=== PATIENT | female | born 1960 | race American Indian/Alaskan Native ===

== ENCOUNTER 2017-12-31 12:40 | Emergency (ER) | payer MEDICARE, OTHER ==
[2017-12-31 13:41] LABS: Basophils # (Auto) 0.1 K/mm3 (0.0-0.1); Basophils % (Auto) 0.8 % (0.0-1.8); Eosinophils # (Auto) 0.3 K/mm3 (0.0-0.4); Eosinophils % (Auto) 4.1 % (0.0-4.3); Hematocrit 37.5 % (30.3-42.9); Hemoglobin 12.7 gm/dl (10.1-14.3); Lymphocytes # (Auto) 1.9 K/mm3 (1.2-5.4); Lymphocytes % (Auto) 23.3 % (13.4-35.0); Mean Corpuscular HGB Conc 34 % (30-34); Mean Corpuscular Hemoglobin 27 pg (28-32); Mean Corpuscular Volume 81 fl (79-97); Monocytes # (Auto) 0.7 K/mm3 (0.0-0.8); Monocytes % (Auto) 8.5 % (0.0-7.3); Platelet Count 305 K/mm3 (140-440); Red Blood Count 4.65 M/mm3 (3.65-5.03); Red Cell Distribution Width 14.2 % (13.2-15.2)
[2017-12-31 13:57] LABS: Calcium 8.8 mg/dL (8.4-10.2)
[2017-12-31] MEDS ORDERED: APRESOLINE IV ONE (14:21)
[2017-12-31] MEDS ORDERED: HumuLIN R IV ONE (16:40)
--- NOTE | 2017-12-31 17:21 | Emergency Department Report ---
HPI - General Chief Complaint: High BP Time Seen by Provider: 12/31/17 14:21 - HPI HPI: The patient is a 57-year-old female with a history of hypertension, diabetes, and chronic kidney disease, who presents for evaluation of elevated blood pressure and mild lightheadedness for the past one day, exacerbated with position changes, improved with lying down at rest. She shares that she was prescribed refills of her antihypertensive medications by her PCP within the past day, but that she was out of one them. The patient denies fever, neck pain , parasthesias, dyspnea, cough, hemoptysis, palpitations, dizziness, syncope, unilateral leg swelling, calf muscle pain. Patient also denies cocaine or other stimulant use, history of DVT or PE, recent immobilization, or history of cancer. ED Past Medical Hx - Past Medical History Hx Hypertension: Yes Hx CVA: Yes Hx Heart Attack/AMI: Yes Hx Congestive Heart Failure: Yes Hx Diabetes: Yes Hx Deep Vein Thrombosis: No Hx Pulmonary Embolism: No Hx Liver Disease: No Hx Seizures: No Hx Asthma: No Hx COPD: No Hx Tuberculosis: No Hx Dementia: No Hx HIV: No - Surgical History Hx Coronary Stent: No Hx Pacemaker: No Hx Internal Defibrillator: No Additional Surgical History: left shoulder sx - Social History Smoking Status: Never Smoker Substance Use Type: None - Medications Home Medications: Home Medications Medication Instructions Recorded Confirmed Last Taken Type Aspirin [Aspirin BABY CHEW TAB] 81 mg PO QDAY 03/12/16 03/12/16 Unknown History AtorvaSTATin [Lipitor] 40 mg PO QAM 03/12/16 03/12/16 Unknown History Insulin NPH Hum/Reg Insulin Hm 15 unit SQ BID 03/12/16 03/12/16 Unknown History [HumuLIN 70-30 Vial] hydrALAZINE [Apresoline TAB] 100 mg PO TID 03/12/16 03/12/16 Unknown History Erythromycin [Erythromycin Ophth 1 applic OD ONCE 7 Days tube 03/17/16 Unknown Rx Oint] NIFEdipine XL [Procardia Xl] 60 mg PO Q12HR #60 tablet 03/17/16 Unknown Rx ED Review of Systems ROS: Stated complaint: BLOOD PRESSURE Other details as noted in HPI Constitutional: Reports lightheadedness denies: fever ENT: denies: throat or neck pain Respiratory: denies: cough, shortness of breath Cardiovascular: denies: chest pain Endocrine: denies unexplained weight loss or gain Gastrointestinal: denies: abdominal pain, nausea Genitourinary: denies: dysuria Musculoskeletal: denies: leg swelling Skin: denies: rash Neurological: denies: headache Hematological/Lymphatic: denies: easy bleeding or easy bruising Psych: denies sadness or hopelessness Physical Exam - Physical Exam Vital Signs: Vital Signs 12/31/17 12/31/17 12/31/17 12:44 12:47 14:59 Temperature 98.3 F Pulse Rate 64 46 L Respiratory 16 14 Rate Blood Pressure 208/82 Blood Pressure 200/56 [Left] O2 Sat by Pulse 97 Oximetry 12/31/17 12/31/17 12/31/17 15:00 15:16 15:30 Temperature Pulse Rate 46 L 47 L 47 L Respiratory 12 10 L 16 Rate Blood Pressure Blood Pressure [Left] O2 Sat by Pulse 94 95 98 Oximetry 12/31/17 12/31/17 12/31/17 15:46 16:00 16:16 Temperature Pulse Rate 49 L 48 L 47 L Respiratory 19 18 19 Rate Blood Pressure Blood Pressure [Left] O2 Sat by Pulse 94 96 94 Oximetry 12/31/17 12/31/17 12/31/17 16:30 16:46 16:55 Temperature Pulse Rate 47 L 47 L Respiratory 20 16 Rate Blood Pressure 133/70 130/70 Blood Pressure [Left] O2 Sat by Pulse 97 Oximetry Physical Exam: General: well-nourished, well-developed, no acute distress Head: Normocephalic, atraumatic Eyes: normal sclera EOMI, PERRLA, no vertical, horizontal, or watery nystagmus, ENT: Mucous membranes are pale and dry Neck: No neck stiffness, no cervical adenopathy Respiratory: Breath sounds equal bilaterally, no wheezing, rales, or rhonchi Cardio: S1 and S2 present, no murmurs, rubs, gallops, capillary refill is delayed Abdomen: Normoactive bowel sounds, soft abdomen, no tenderness Chest WALL/Back: No tenderness to palpation of the chest wall, no CVA tenderness with percussion Musc: No pitting edema Skin: No rash Neuro: Alert oriented 3, no facial drooping, normal speech, no obvious gross sensation or motor deficits on exam Psych: Normal affect ED Course Vital Signs 12/31/17 12/31/17 12/31/17 12:44 12:47 14:59 Temperature 98.3 F Pulse Rate 64 46 L Respiratory 16 14 Rate Blood Pressure 208/82 Blood Pressure 200/56 [Left] O2 Sat by Pulse 97 Oximetry 12/31/17 12/31/17 12/31/17 15:00 15:16 15:30 Temperature Pulse Rate 46 L 47 L 47 L Respiratory 12 10 L 16 Rate Blood Pressure Blood Pressure [Left] O2 Sat by Pulse 94 95 98 Oximetry 12/31/17 12/31/17 12/31/17 15:46 16:00 16:16 Temperature Pulse Rate 49 L 48 L 47 L Respiratory 19 18 19 Rate Blood Pressure Blood Pressure [Left] O2 Sat by Pulse 94 96 94 Oximetry 12/31/17 12/31/17 12/31/17 16:30 16:46 16:55 Temperature Pulse Rate 47 L 47 L Respiratory 20 16 Rate Blood Pressure 133/70 130/70 Blood Pressure [Left] O2 Sat by Pulse 97 Oximetry ED Medical Decision Making - Lab Data Result diagrams: 12/31/17 13:22 12/31/17 13:22 - Medical Decision Making The patient was seen and examined by myself. The patient is placed on a astrophysics teacher and continuous pulse ox. On initial evaluation, the patient was found to be in no distress. Evaluation orders were placed. EKG negative for arrhythmia or changes concerning for acute cardiac disease process. The patient was given IV hydralazine for her elevated blood pressure. Lab results revealed elevated BUN, elevated creatinine of 2.7, elevated glucose of 300, normal anion gap and bicarbonate, not consistent with DKA. The patient was given subcutaneous insulin for treatment of hyperglycemia. Lab results were not concerning. The patient was reevaluated and found to have resolution of hypertension. On reexamination the patient states that she has been at her normal baseline and is asymptomatic. The patient was reevaluated and reported that their symptoms were markedly improved. The patient is stable for discharge with outpatient follow-up. The patient is given follow-up and return instructions. The patient expressed understanding and agreed with the plan. The patient is discharged in stable condition. Critical care attestation.: If time is entered above; I have spent that time in minutes in the direct care of this critically ill patient, excluding procedure time. ED Disposition Clinical Impression: Hypertensive urgency, Dehydration, Acute hyperglycemia CKD (chronic kidney disease) Qualifiers: Chronic kidney disease stage: unspecified stage Qualified Code(s): N18.9 - Chronic kidney disease, unspecified Disposition: DC-01 TO HOME OR SELFCARE Is pt being admited?: No Does the pt Need Aspirin: No Condition: Stable Instructions: Chronic Hypertension (ED), Chronic Kidney Disease (ED), Diabetic Hyperglycemia (ED) Referrals: [facility] [Provider Group] - 3-5 Days Time of Disposition: 17:16
[2017-12-31 17:44] VITALS: BP 133/70
== END 2017-12-31 17:50 | disposition home or self-care (01) ==
LOC: ED 12:40
DX: I16.0 Hypertensive urgency (principal); E11.65 Type 2 diabetes mellitus with hyperglycemia; E86.0 Dehydration; I13.0 Hypertensive heart and chronic kidney disease with heart failure and stage 1 through stage 4 chronic kidney disease, or unspecified chronic kidney disease; E11.22 Type 2 diabetes mellitus with diabetic chronic kidney disease; N18.9 Chronic kidney disease, unspecified; I50.9 Heart failure, unspecified; I25.2 Old myocardial infarction; Z79.4 Long term (current) use of insulin; Z86.73 Personal history of transient ischemic attack (TIA), and cerebral infarction without residual deficits; Z79.82 Long term (current) use of aspirin
CPT/HCPCS: 36415; 80048; 82962; 85025; 93005; 93010; 96374; 99284; J0360; J1815

== ENCOUNTER 2018-03-17 13:48 | Inpatient (IN) | payer MEDICARE ==
--- NOTE | 2018-03-17 14:24 | Emergency Department Report ---
HPI - General Time Seen by Provider: 03/17/18 14:14 - HPI HPI: 57-year-old female presents to the emergency department from home with complaint of some lightheadedness and/or dizziness, headache and some right eye pain has been going on since earlier this morning. 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 She denies any vertigo like symptoms, slurred speech, sensory deficits or any new motor deficits. Patient does ambulate despite her right-sided weakness. She has not taken anything for her symptoms prior to presentation. She goes to [facility] for primary care needs. No recent travel or sick contacts at home. ED Past Medical Hx - Past Medical History Hx Hypertension: Yes Hx CVA: Yes Hx Heart Attack/AMI: Yes Hx Congestive Heart Failure: Yes Hx Diabetes: Yes Hx Deep Vein Thrombosis: No Hx Pulmonary Embolism: No Hx Liver Disease: No Hx Seizures: No Hx Asthma: No Hx COPD: No Hx Tuberculosis: No Hx Dementia: No Hx HIV: No - Surgical History Hx Coronary Stent: No Hx Pacemaker: No Hx Internal Defibrillator: No Additional Surgical History: left shoulder sx - Social History Smoking Status: Never Smoker Substance Use Type: None - Medications Home Medications: Home Medications Medication Instructions Recorded Confirmed Last Taken Type Atenolol [Tenormin] 50 mg PO DAILY 03/17/18 03/17/18 Unknown History Atorvastatin [Lipitor Tab] 80 mg PO QAM 03/17/18 03/17/18 Unknown History Insulin Detemir [Levemir Flextouch] 15 unit SQ BID 03/17/18 03/17/18 Unknown History amLODIPine [Norvasc] 10 mg PO DAILY 03/17/18 03/17/18 Unknown History glipiZIDE [Glipizide] 10 mg PO BID 03/17/18 03/17/18 Unknown History ED Review of Systems ROS: Stated complaint: WEAKNESS Other details as noted in HPI Comment: All other systems reviewed and negative Constitutional: denies: chills, fever Eyes: eye pain. denies: vision change ENT: denies: ear pain, throat pain Respiratory: denies: cough, shortness of breath, wheezing Cardiovascular: denies: chest pain, palpitations Gastrointestinal: denies: abdominal pain, nausea, diarrhea Genitourinary: denies: urgency, dysuria, discharge Musculoskeletal: denies: back pain, joint swelling, arthralgia Skin: denies: rash, lesions Neurological: headache, other (dizziness/lightheaded) Physical Exam - Physical Exam Physical Exam: GENERAL: The patient is well-developed well-nourished. HENT: Normocephalic. Atraumatic. Patient has moist mucous membranes. EYES: Extraocular motions are intact. Left pupil is reactive to light. 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 NECK: Supple. Trachea is midline. CHEST/LUNGS: Clear to auscultation. There is no respiratory distress noted. HEART/CARDIOVASCULAR: Regular. There is no tachycardia. There is no murmur. ABDOMEN: Abdomen is soft, nontender. Patient has normal bowel sounds. There is no abdominal distention. SKIN: Skin is warm and dry. NEURO: The patient is awake, alert, and cooperative. The patient has no focal neurologic deficits. The patient has normal speech. Cranial nerves II through XII grossly intact except for pupillary response in the right eye. No pronator drift. No dysmetria. MUSCULOSKELETAL: There is no tenderness or deformity. There is no evidence of acute injury. ED Medical Decision Making - Lab Data Result diagrams: 03/17/18 14:29 03/17/18 14:29 - EKG Data -: EKG Interpreted by [facility] EKG shows normal: sinus rhythm, axis (left axis deviation), intervals, QRS complexes (LVH), ST-T waves (flattening of the T waves or inversion to the lateral leads) Rate: bradycardia (47 bpm) - EKG Data When compared to previous EKG there are: no significant change Interpretation: unchanged when compared t (12/31/17) - Radiology Data Radiology results: report reviewed, image reviewed interpreted by me: Chest x-ray does not show any acute process. There are no pleural effusions, obvious pneumonia and there is no pneumothorax. CT HEAD WITHOUT CONTRAST: HISTORY: Dizziness, headache. TECHNIQUE: Sequential 2.5mm CT images. COMPARISON: 03/16/16. FINDINGS: Cerebral Parenchyma: A chronic 1.5 cm infarct is identified in the right anterior basal ganglia/johnson radiata. An approximate 2 x 3 cm chronic infarct is identified in the left parietal lobe. An approximate 1.7 cm cortical infarct is identified in the posterior right frontal lobe. Chronic 1 cm infarct is identified in the left cerebellar hemisphere. No large area of acute ischemia is appreciated on today's exam. Cerebellum: Within normal limits. Brainstem: Within normal limits. Ventricles: Normal. Sella: Normal. Extra-axial spaces: Normal. Basal Cisterns: Normal. Intracranial Hemorrhage: None. Midline Shift: None. Calvarium: Normal. Sinuses: Normal. Mastoid Air Cells: Normal. Visualized Orbits: Normal. IMPRESSION: Multiple chronic infarcts as outlined above. No acute process is appreciated. Transcribed By: TTR Dictated By: ANIYAH VAZQUEZ JR, MD Electronically Authenticated By: ANIYAH VAZQUEZ JR, MD Signed Date/Time: 03/17/18 1527 - Medical Decision Making Patient presents with a complaint of some dizziness and lightheadedness. She has a history of previous CVA. She is a 0 on the NIH stroke scale. Labs have been mostly unremarkable. Patient does have some elevated blood pressure. The patient appears to have some sustained bradycardia. Patient was reevaluated multiple times for multiple hours and has appeared to remain stable but has not improved enough for discharge home. When we got the patient up to ambulate, she appeared a little unsteady and says that she was feeling dizzy. For this reason the patient will be admitted to the hospital for further evaluation and possibly an MRI. The patient will be presented to the admitting hospice, Dr. Meneses. Critical care attestation.: If time is entered above; I have spent that time in minutes in the direct care of this critically ill patient, excluding procedure time. ED Disposition Clinical Impression: Unstable gait, Dizziness, Hyperglycemia, History of CVA (cerebrovascular accident) Disposition: OP ADMIT IP TO THIS HOSP Is pt being admited?: Yes Condition: Fair Referrals: PRIMARY CARE, [Primary Care Provider] - 3-5 Days Time of Disposition: 21:20 - Assessment Assessment Interval: Baseline - Level of Consciousness 1a. Level of Consciousness: alert/keenly responsive - LOC Questions 1b. LOC Questions: answers both correctly - LOC Command 1c. LOC Commands: performs tasks correctly - Best Gaze 2. Best Gaze: normal - Visual 3. Visual: no visual loss - Facial Palsy 4. Facial Palsy: normal symmetrical movement - Motor Arm 5b. Motor Arm Right: no drift 5a. Motor Arm Left: no drift - Motor Leg 6a. Motor Leg Left: no drift 6b. Motor Leg Right: no drift - Limb Ataxia 7. Limb Ataxia: absent - Sensory 8. Sensory: normal - Best Language 9. Best Language: no aphasia - Dysarthria 10. Dysarthria: normal - Extinction and Inattention 11. Extinction/Inattention: no abnormality - Scoring Total Score: 0 Stroke Severity: No Stroke Symptoms
[2018-03-17 14:49] LABS: Basophils # (Auto) 0.1 K/mm3 (0.0-0.1); Basophils % (Auto) 0.6 % (0.0-1.8); Eosinophils # (Auto) 0.1 K/mm3 (0.0-0.4); Eosinophils % (Auto) 0.6 % (0.0-4.3); Hematocrit 37.2 % (30.3-42.9); Hemoglobin 12.2 gm/dl (10.1-14.3); Lymphocytes # (Auto) 0.6 K/mm3 (1.2-5.4); Lymphocytes % (Auto) 6.4 % (13.4-35.0); Mean Corpuscular HGB Conc 33 % (30-34); Mean Corpuscular Hemoglobin 27 pg (28-32); Mean Corpuscular Volume 83 fl (79-97); Monocytes # (Auto) 0.3 K/mm3 (0.0-0.8); Monocytes % (Auto) 3.3 % (0.0-7.3); Platelet Count 309 K/mm3 (140-440); Red Blood Count 4.49 M/mm3 (3.65-5.03); Red Cell Distribution Width 14.3 % (13.2-15.2)
[2018-03-17 15:10] LABS: Albumin 3.6 g/dL (3.9-5); Calcium 9.2 mg/dL (8.4-10.2)
--- NOTE | 2018-03-17 15:26 | XRay Report ---
AP CHEST: HISTORY: chest pain Mild cardiomegaly is suspected. Normal pulmonary vascularity. The lungs are clear. The bony thorax is intact. IMPRESSION: Mild cardiomegaly. Lungs clear.
--- NOTE | 2018-03-17 15:29 | Cat Scan Report ---
CT HEAD WITHOUT CONTRAST: HISTORY: Dizziness, headache. TECHNIQUE: Sequential 2.5mm CT images. COMPARISON: 03/16/16. FINDINGS: Cerebral Parenchyma: A chronic 1.5 cm infarct is identified in the right anterior basal ganglia/johnson radiata. An approximate 2 x 3 cm chronic infarct is identified in the left parietal lobe. An approximate 1.7 cm cortical infarct is identified in the posterior right frontal lobe. Chronic 1 cm infarct is identified in the left cerebellar hemisphere. No large area of acute ischemia is appreciated on today's exam. Cerebellum: Within normal limits. Brainstem: Within normal limits. Ventricles: Normal. Sella: Normal. Extra-axial spaces: Normal. Basal Cisterns: Normal. Intracranial Hemorrhage: None. Midline Shift: None. Calvarium: Normal. Sinuses: Normal. Mastoid Air Cells: Normal. Visualized Orbits: Normal. IMPRESSION: Multiple chronic infarcts as outlined above. No acute process is appreciated.
[2018-03-17] MEDS ORDERED: APRESOLINE IV ONE (16:04)
[2018-03-17] MEDS ORDERED: D50W (25GM) Syringe IV PRN (22:22)
[2018-03-17] MEDS ORDERED: APRESOLINE ONE (23:32)
[2018-03-17] MEDS: APRESOLINE IV PRN (23:33)
[2018-03-18 01:13] LABS: Creatine Kinase MB 9.5 ng/mL (0.0-4.0)
[2018-03-18] MEDS: APRESOLINE IV PRN (05:23)
[2018-03-18 05:31] LABS: Creatine Kinase MB 7.8 ng/mL (0.0-4.0)
[2018-03-18 05:34] LABS: Calcium 9.3 mg/dL (8.4-10.2)
[2018-03-18 08:07] LABS: Chol/HDL Ratio 4.1 %
[2018-03-18] MEDS ORDERED: APRESOLINE IV PRN (08:30)
[2018-03-18] MEDS: HumuLIN R SUB-Q SCH ×4 (08:37→22:43)
[2018-03-18] MEDS: APRESOLINE PO SCH ×3 (09:11→22:23)
--- NOTE | 2018-03-18 09:58 | Consultation ---
History of Present Illness - Reason for Consult Consult date: 03/18/18 acute renal failure, chronic renal failure Requesting physician: SUZANNE MATHEW - History of Present Illness 57-year-old female presents to the emergency department from home with complaint of some lightheadedness and/or dizziness, headache and some right eye pain has been going on since earlier this morning. 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 She denies any vertigo like symptoms, slurred speech, sensory deficits or any new motor deficits. Patient does ambulate despite her right-sided weakness. She has not taken anything for her symptoms prior to presentation. She goes to [place] for primary care needs. No recent travel or sick contacts at home. cr is 2.8 currently, was 1.6 in 2016 - Past Medical History Hx Hypertension: Yes Hx CVA: Yes Hx Heart Attack/AMI: Yes Hx Congestive Heart Failure: Yes Hx Diabetes: Yes Hx Deep Vein Thrombosis: No Hx Pulmonary Embolism: No Hx Liver Disease: No Hx Seizures: No Hx Asthma: No Hx COPD: No Hx Tuberculosis: No Hx Dementia: No Hx HIV: No - Surgical History Hx Coronary Stent: No Hx Pacemaker: No Hx Internal Defibrillator: No Additional Surgical History: left shoulder sx - Social History Smoking Status: Never Smoker Substance Use Type: None ROS: Stated complaint: WEAKNESS Other details as noted in HPI Comment: All other systems reviewed and negative Constitutional: denies: chills, fever Eyes: eye pain. denies: vision change ENT: denies: ear pain, throat pain Respiratory: denies: cough, shortness of breath, wheezing Cardiovascular: denies: chest pain, palpitations Gastrointestinal: denies: abdominal pain, nausea, diarrhea Genitourinary: denies: urgency, dysuria, discharge Musculoskeletal: denies: back pain, joint swelling, arthralgia Skin: denies: rash, lesions Neurological: headache, other (dizziness/lightheaded) Medications and Allergies Allergies Allergy/AdvReac Type Severity Reaction Status Date / Time No Known Allergies Allergy Verified 10/02/13 23:34 Home Medications Medication Instructions Recorded Confirmed Last Taken Type Atenolol [Tenormin] 50 mg PO DAILY 03/17/18 03/17/18 Unknown History Atorvastatin [Lipitor Tab] 80 mg PO QAM 03/17/18 03/17/18 Unknown History Insulin Detemir [Levemir Flextouch] 15 unit SQ BID 03/17/18 03/17/18 Unknown History amLODIPine [Norvasc] 10 mg PO DAILY 03/17/18 03/17/18 Unknown History glipiZIDE [Glipizide] 10 mg PO BID 03/17/18 03/17/18 Unknown History Active Meds: Active Medications Amlodipine Besylate (Norvasc) 10 mg PO DAILY [facility] Last Admin: 03/18/18 09:08 Dose: 10 mg Atorvastatin Calcium (Lipitor) 80 mg PO QAM [facility] Last Admin: 03/18/18 09:13 Dose: 80 mg Dextrose (D50w (25gm) Syringe) 50 ml IV PRN PRN PRN Reason: Hypoglycemia Heparin Sodium (Porcine) (Heparin) 5,000 unit SUB-Q Q12HR [facility] Last Admin: 03/18/18 09:12 Dose: 5,000 unit Hydralazine HCl (Apresoline) 10 mg IV Q30MIN PRN PRN Reason: Hypertension Hydralazine HCl (Apresoline) 100 mg PO TID [facility] Last Admin: 03/18/18 09:11 Dose: 100 mg Insulin Human Regular (Humulin R) 0 units SUB-Q AC [facility]; Protocol Last Admin: 03/18/18 08:37 Dose: Not Given Insulin Human Regular (Humulin R) 0 units SUB-Q QHS [facility]; Protocol Exam - Vital Signs Vital signs: Vital Signs Pulse Ox 82 L 03/17/18 14:14 - Physical Exam Narrative exam: GENERAL: The patient is well-developed well-nourished. HENT: Normocephalic. Atraumatic. Patient has moist mucous membranes. EYES: Extraocular motions are intact. Left pupil is reactive to light. 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 NECK: Supple. Trachea is midline. CHEST/LUNGS: Clear to auscultation. There is no respiratory distress noted. HEART/CARDIOVASCULAR: Regular. There is no tachycardia. There is no murmur. ABDOMEN: Abdomen is soft, nontender. Patient has normal bowel sounds. There is no abdominal distention. SKIN: Skin is warm and dry. NEURO: The patient is awake, alert, and cooperative. The patient has no focal neurologic deficits. The patient has normal speech. Cranial nerves II through XII grossly intact except for pupillary response in the right eye. No pronator drift. No dysmetria. MUSCULOSKELETAL: There is no tenderness or deformity. There is no evidence of acute injury. Results - Lab Results 03/17/18 14:29 03/18/18 04:49 Most recent lab results Calcium 9.3 mg/dL (8.4-10.2) 03/18/18 04:49 Assessment and Plan Impression: * KIZZY on ckd * HTN * dizziness * h/o CVA * DM type 2 * h/p chf Plan: * follow up renal us and ua * likely adv CKD due to HTN/DM * daily lytes * strict i/os and avoid nephrotoxins * bp and DM control needed * no indication for HOME DELIVERY DRIVER at this time
[2018-03-18] MEDS ORDERED: NORVASC PO SCH (10:00)
[2018-03-18] MEDS ORDERED: HEPARIN SUB-Q SCH (10:00)
[2018-03-18] MEDS ORDERED: TENORMIN PO SCH (10:00)
--- NOTE | 2018-03-18 10:04 | Consultation ---
History of Present Illness Consult date: 03/18/18 Consult reason: bradycardia History of present illness: This is a 57 year old woman who presents to this hospital with complaints of light headedness. Patient reports feeling light headed upon standing, resolves at rest. There are no reports of chest pain, shortness of breath or palpitations. There was no syncope. Her EKG shows marked sinus bradycardia with LVH, rate 47. Cardiac enzymes shows rhabdomyolysis with a creatine kinase 680 with a normal relative index. There is also elevated troponin of 0.98, likely in the setting of renal failure with a creatinine of 2.8. Patient has a history of hypertension which is managed with atenolol and amlodipine. She also has a history of nonischemic cardiomyopathy. In 2014, she had a cardiac cath that revealed no significant coronary artery disease but mild left ventricular dysfunction, ejection fraction 40%. A follow up echocardiogram in 2015 showed an improved left ventricular ejection fraction 55- 60%. Medications and Allergies Allergies Allergy/AdvReac Type Severity Reaction Status Date / Time No Known Allergies Allergy Verified 10/02/13 23:34 Home Medications Medication Instructions Recorded Confirmed Last Taken Type Atenolol [Tenormin] 50 mg PO DAILY 03/17/18 03/17/18 Unknown History Atorvastatin [Lipitor Tab] 80 mg PO QAM 03/17/18 03/17/18 Unknown History Insulin Detemir [Levemir Flextouch] 15 unit SQ BID 03/17/18 03/17/18 Unknown History amLODIPine [Norvasc] 10 mg PO DAILY 03/17/18 03/17/18 Unknown History glipiZIDE [Glipizide] 10 mg PO BID 03/17/18 03/17/18 Unknown History Active Meds: Active Medications Amlodipine Besylate (Norvasc) 10 mg PO DAILY [facility] Last Admin: 03/18/18 09:08 Dose: 10 mg Atorvastatin Calcium (Lipitor) 80 mg PO QAM [facility] Last Admin: 03/18/18 09:13 Dose: 80 mg Dextrose (D50w (25gm) Syringe) 50 ml IV PRN PRN PRN Reason: Hypoglycemia Heparin Sodium (Porcine) (Heparin) 5,000 unit SUB-Q Q12HR [facility] Last Admin: 03/18/18 09:12 Dose: 5,000 unit Hydralazine HCl (Apresoline) 10 mg IV Q30MIN PRN PRN Reason: Hypertension Hydralazine HCl (Apresoline) 100 mg PO TID [facility] Last Admin: 03/18/18 09:11 Dose: 100 mg Insulin Human Regular (Humulin R) 0 units SUB-Q AC [facility]; Protocol Last Admin: 03/18/18 08:37 Dose: Not Given Insulin Human Regular (Humulin R) 0 units SUB-Q QHS [facility]; Protocol Physical Examination Vital Signs Pulse Ox 82 L 03/17/18 14:14 Results 03/17/18 14:29 03/18/18 04:49 Cardiac Enzymes 03/17/18 03/18/18 03/18/18 Range/Units 14:29 00:36 04:49 AST 21 (5-40) units/L CK-MB (CK-2) 9.5 H 7.8 H (0.0-4.0) ng/mL Lipids 03/18/18 Range/Units 04:49 Triglycerides 159 H (2-149) mg/dL Cholesterol 246 H (50-199) mg/dL HDL Cholesterol 60 H (40-59) mg/dL Cholesterol/HDL Ratio 4.10 % CBC 03/17/18 Range/Units 14:29 WBC 9.1 (4.5-11.0) K/mm3 RBC 4.49 (3.65-5.03) M/mm3 Hgb 12.2 (10.1-14.3) gm/dl Hct 37.2 (30.3-42.9) % Plt Count 309 (140-440) K/mm3 Lymph # 0.6 L (1.2-5.4) K/mm3 [place] # 0.3 (0.0-0.8) K/mm3 Eos # 0.1 (0.0-0.4) K/mm3 Baso # 0.1 (0.0-0.1) K/mm3 Comprehensive Metabolic Panel 03/17/18 03/18/18 Range/Units 14:29 04:49 Sodium 137 142 (137-145) mmol/L Potassium 4.7 4.3 (3.6-5.0) mmol/L Chloride 101.4 105.5 (98-107) mmol/L Carbon Dioxide 24 24 (22-30) mmol/L BUN 43 H 40 H (7-17) mg/dL Creatinine 2.8 H 2.8 H (0.7-1.2) mg/dL Glucose 258 H 123 H (65-100) mg/dL Calcium 9.2 9.3 (8.4-10.2) mg/dL AST 21 (5-40) units/L ALT 24 (7-56) units/L Alkaline Phosphatase 77 (35-129) units/L Total Protein 6.5 (6.3-8.2) g/dL Albumin 3.6 L (3.9-5) g/dL Assessment and Plan Light headed Acute renal failure Sinus bradycardia atenolol discontinued Hypertension Diabetes Elevated troponin, nonspecific likely in the setting of renal failure [facility] 2015: no significant CAD, EF 40%. normal LVEF by echo 2015.
[2018-03-18] MEDS: PROCARDIA XL PO SCH (14:05)
[2018-03-18] MEDS: ASPIRIN PO SCH (14:05)
--- NOTE | 2018-03-18 14:58 | Ultrasound Report ---
Renal ultrasound: Renal failure. The right renal length is 10.3 cm and the left renal length is 9.7 cm. The echogenicity of both kidneys is minimally increased. No parenchymal thinning identified. Small collections of fluid are identified centrally in both collecting systems but not significant distention of the system. These findings are generally unchanged from her prior exam in February 2016. Imaging of the urinary bladder is unremarkable. Of incidental note are several gallstones with no evidence of gallbladder inflammation. Impressions: 1. The findings are consistent with mild chronic renal failure. 2. Stable minimal dilatation of central collecting systems. 3. Cholelithiasis.
--- NOTE | 2018-03-18 15:12 | Progress Note ---
Assessment and Plan MARYANNE on ckd - monitor renal function and follow BMP - nephrology consulted HTN, uncontrolled - d/c atenolol, start on norvasc and hydralazine dizziness, likely from Maryanne and uncontrolled BP - CT head negative, adjust meds to better control BP h/o CVA with rightsided weakness - cont aspirin and statin DM type 2 - consistent carb diet h/o CHF - cont home meds, cardiology following Sinus bradycardia, med induced - d/randall atenolol - Subjective Date of service: 03/18/18 Interval history: Pt seen and examined No acute event o/n denies any SOB or chest pain Objective - Constitutional Vitals: Vital Signs - 12hr 03/18/18 03/18/18 03/18/18 04:44 08:50 09:08 Temperature 98.7 F Pulse Rate 58 L 62 Respiratory 24 Rate Blood Pressure 204/61 175/50 Blood Pressure 175/50 [Right] O2 Sat by Pulse 96 Oximetry 03/18/18 09:15 Temperature Pulse Rate 62 Respiratory Rate Blood Pressure 175/50 Blood Pressure [Right] O2 Sat by Pulse Oximetry General appearance: Present: no acute distress, obese, other (elderly female) - EENT Eyes: no scleral icterus ENT: hearing intact, clear oral mucosa Ears: bilateral: normal - Neck Neck: supple, normal ROM - Respiratory Respiratory effort: normal Respiratory: bilateral: CTA - Breasts Breasts: normal - Cardiovascular Rhythm: regular Heart Sounds: Present: S1 & S2. Absent: gallop, rub Extremities: pulses intact, No edema, normal color, Full ROM - Gastrointestinal General gastrointestinal: Present: soft, non-tender, non-distended, normal bowel sounds - Genitourinary Female genitourinary: normal - Integumentary Integumentary: clear, warm, dry - Musculoskeletal Musculoskeletal: 1, strength equal bilaterally - Neurologic Neurologic: moves all extremities - Psychiatric Psychiatric: memory intact, appropriate mood/affect, intact judgment & insight - Labs CBC & Chem 7: 03/18/18 22:21 03/19/18 05:20 Labs: Abnormal lab results 03/18/18 03/18/18 03/18/18 Range/Units 00:36 04:49 13:43 BUN 40 H (7-17) mg/dL Creatinine 2.8 H (0.7-1.2) mg/dL Glucose 123 H (65-100) mg/dL POC Glucose 162 H (70-105) Total Creatine Kinase 680 H 620 H (30-135) units/L CK-MB (CK-2) 9.5 H 7.8 H (0.0-4.0) ng/mL Troponin T 0.098 H 0.103 H* (0.00-0.029) ng/mL Triglycerides 159 H (2-149) mg/dL Cholesterol 246 H (50-199) mg/dL LDL Cholesterol Direct 167 H (50-130) mg/dL HDL Cholesterol 60 H (40-59) mg/dL - Imaging and cardiology Chest x-ray: report reviewed CT Scan - head: report reviewed
[2018-03-18] MEDS ORDERED: HEPARIN 10,000 UNITS/10 ML IV ONE (21:33)
[2018-03-18] MEDS ORDERED: HEPARIN/ 0.45% NACL-25,000 UNIT/500 ML 25,000 UNIT/500 ML BAG IV SCH (22:00)
[2018-03-18 23:19] LABS: Hematocrit 36.8 % (30.3-42.9); Hemoglobin 12.1 gm/dl (10.1-14.3)
[2018-03-18 23:31] LABS: INR 0.91 (0.87-1.13)
[2018-03-18 23:32] LABS: Partial Thromboplastin Time 29.6 Sec. (24.2-36.6)
[2018-03-19 06:05] LABS: Calcium 8.7 mg/dL (8.4-10.2)
--- NOTE | 2018-03-19 06:42 | History and Physical Report ---
CHIEF COMPLAINT: Dizziness. HISTORY OF PRESENT ILLNESS: The patient is a 57-year-old female with past medical history of cerebrovascular accident, presenting with dizziness, headache and pain in the right eye that was going on for some hours prior to presentation. There is no history of chest pain, no history of shortness of breath, no history of vertigo or speech impairment. Also the patient denied any history of numbness or tingling sensation or new weakness on any part of the body, presented to the Emergency Room for evaluation. PAST MEDICAL HISTORY: Pertinent for hypertension, cerebrovascular accident, coronary artery disease, congestive heart failure, and diabetes mellitus. PAST SURGICAL HISTORY: Pertinent for left shoulder surgery. FAMILY HISTORY: Noncontributory. SOCIAL HISTORY: The patient does not smoke, does not drink alcohol, and does not use illicit drugs. MEDICATIONS: The patient is on atenolol 50 mg by mouth daily, Levemir insulin 50 units subcutaneously twice daily, Norvasc 10 mg by mouth daily, and glipizide 10 mg by mouth daily. ALLERGIES: There are no known drug allergies. REVIEW OF SYSTEMS: CONSTITUTIONAL: There is no fever, no chills, no diaphoresis. HEENT: There is headache but no sore throat. CARDIOVASCULAR SYSTEM: There is no chest pain or orthopnea. RESPIRATORY SYSTEM: There is no shortness of breath or cough. GASTROINTESTINAL SYSTEM: There is no nausea, no vomiting, no abdominal pain, diarrhea or constipation. NEUROLOGICAL SYSTEM: Dizziness present. No altered mental status, no speech impairment or any tingling or numbness. MUSCULOSKELETAL SYSTEM: There is no joint pain or swelling. DERMATOLOGICAL SYSTEM: There is no skin rash or itching. GENITOURINARY SYSTEM: There is no dysuria, hematuria or flank pain. Rest of system review is normal. PHYSICAL EXAMINATION: GENERAL: At the time of exam, the patient was found to be alert and oriented x 3, not in acute distress. VITAL SIGNS: Shows normal temperature of 98 degrees Fahrenheit, pulse of 50, respirations 18, blood pressure of 182/72, and O2 sat of 99% on room air. HEENT: Showed pupils to be equal, round, reactive to light and accommodation. Extraocular muscles are intact. NECK: Supple with no JVD or carotid bruit. CARDIOVASCULAR SYSTEM: Showed normal first and second heart sounds with no gallops or murmurs. RESPIRATORY SYSTEM: Showed good air entry on both sides of the lungs with no abnormal breath sounds. GASTROINTESTINAL SYSTEM: Showed abdomen to be full, soft, and nontender with no organomegaly or rigidity. NEUROLOGIC SYSTEM: Showed no new focal deficit. MUSCULOSKELETAL SYSTEM: Showed no joint swelling or tenderness. DERMATOLOGICAL SYSTEM: Showed no skin rash. GENITOURINARY SYSTEM: Showing no costovertebral angle tenderness. PERTINENT LABORATORY AND IMAGING STUDIES: The patient had CT of the head without contrast done that shows chronic multiple infarcts with no acute process noted. Also the patient had chest x-ray done that shows mild cardiomegaly with clear lungs. The patient's lab results show CBC with normal white count, normal hemoglobin and normal hematocrit with CBC differential showing elevated segmented neutrophils of 89.1%. The patient's chemistry show elevated BUN of 43 with elevated creatinine of 2.8 and high glucose level of 258. The patient's cardiac enzymes show elevated total CPK of 680 with elevated CK-MB of 9.5 with normal CK percentage index and high troponin level of 0.098. The patient's albumin level shows slightly decreased level of 3.6. DIAGNOSES: 1. Dizziness. 2. Symptomatic bradycardia. 3. Acute kidney injury. 4. Elevated troponin level. PLAN OF ACTION: 1. The patient will be admitted to medical floor on telemetry. 2. The patient will have cardiac enzymes involving troponin, total CK and CK-MB checked q.6 hours x 2 more levels. 3. The patient will have physical therapy consult because of difficulty with ambulation. 4. The patient will have 2D echo done this morning because of dizziness with symptomatic bradycardia. 5. The patient will have Cardiology consult with Dr. Augustin because of symptomatic bradycardia and elevated troponin. 6. The patient's diet will be consistent with carbohydrate, low sodium diet. The patient will have Accu-Chek before meals and at bedtime followed by low-dose sliding scale using regular insulin coverage. 7. The patient will be on home medication as shown in the medication reconciliation section and will be on IV hydralazine 10 mg every 4 hours as needed for blood pressure of 150/90 or more. 8. The patient will have bilateral carotid Doppler done this morning because of dizziness. 9. The patient will have basic metabolic panel also done this morning and will have Nephrology consult with Dr. Logan because of acute kidney injury. The patient's DVT prophylaxis will be through heparin 5000 units subcutaneously q.12 hours. JOB# [id number] OCN/NTS
[2018-03-19] MEDS: HumuLIN R SUB-Q SCH ×4 (08:30→22:41)
[2018-03-19] MEDS: PROCARDIA XL PO SCH (10:12)
[2018-03-19] MEDS: ASPIRIN PO SCH (10:13)
[2018-03-19] MEDS: APRESOLINE PO SCH ×3 (10:13→22:42)
--- NOTE | 2018-03-19 10:51 | Progress Note ---
Subjective Date of service: 03/19/18 Interval history: Plan No new changes, bradycardia stable, no further CV workup, ok to go home Recommendations: Patient's persistent sinus bradycardia was likely has exacerbated by atenolol, has been stopped. will cont HTN control with non-chronotropic agents. Objective Vital Signs Temp Pulse Resp BP Pulse Ox 03/19/18 05:43 98.0 F 48 L 20 162/45 95 03/18/18 21:41 98.9 F 51 L 18 151/86 96 03/18/18 17:44 98.4 F 49 L 20 114/42 95 03/18/18 13:45 99.0 F 50 L 20 149/49 98 - Physical Examination General: Appears Well Neck: Positive: neck supple Cardiac: Positive: Reg Rate and Rhythm, S1/S2 Lungs: Positive: Normal Exam Neuro: Positive: Grossly Intact Abdomen: Positive: Unremarkable - Labs and Meds Coagulation 03/18/18 Range/Units 22:21 PT 12.7 (12.2-14.9) Sec. INR 0.91 (0.87-1.13) APTT 29.6 (24.2-36.6) Sec. CBC 03/18/18 Range/Units 22:21 Hgb 12.1 (10.1-14.3) gm/dl Hct 36.8 (30.3-42.9) % Plt Count 335 (140-440) K/mm3 Comprehensive Metabolic Panel 03/19/18 Range/Units 05:20 Sodium 140 (137-145) mmol/L Potassium 4.6 (3.6-5.0) mmol/L Chloride 105.8 (98-107) mmol/L Carbon Dioxide 23 (22-30) mmol/L BUN 43 H (7-17) mg/dL Creatinine 3.2 H (0.7-1.2) mg/dL Glucose 147 H (65-100) mg/dL Calcium 8.7 (8.4-10.2) mg/dL
--- NOTE | 2018-03-19 11:57 | Progress Note ---
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 HENT: Normocephalic. Atraumatic. Patient has moist mucous membranes. EYES: Extraocular motions are intact. Left pupil is reactive to light. 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 NECK: Supple. Trachea is midline. CHEST/LUNGS: Clear to auscultation. There is no respiratory distress noted. HEART/CARDIOVASCULAR: Regular. There is no tachycardia. There is no murmur. ABDOMEN: Abdomen is soft, nontender. Patient has normal bowel sounds. There is no abdominal distention. SKIN: Skin is warm and dry. NEURO: The patient is awake, alert, and cooperative. The patient has no focal neurologic deficits. The patient has normal speech. Cranial nerves II through XII grossly intact except for pupillary response in the right eye. No pronator drift. No dysmetria. MUSCULOSKELETAL: There is no tenderness or deformity. There is no evidence of acute injury. - Vital Signs Vital signs: Vital Signs - 12hr 03/19/18 05:43 Temperature 98.0 F Pulse Rate 48 L Respiratory 20 Rate Blood Pressure 162/45 O2 Sat by Pulse 95 Oximetry - Lab 03/18/18 22:21 03/19/18 05:20 Most recent lab results Calcium 8.7 mg/dL (8.4-10.2) 03/19/18 05:20
[2018-03-19] MEDS ORDERED: NACL 0.45% 1000 ML 1,000 ML IV SCH (12:15)
--- NOTE | 2018-03-19 15:04 | Progress Note ---
Assessment and Plan MARYANNE on ckd - monitor renal function and follow BMP - nephrology consulted - started on low volume iv fluid HTN, uncontrolled - d/randall atenolol, cont on procardia and hydralazine dizziness, likely from Maryanne and uncontrolled BP - CT head negative, adjust meds to better control BP h/o CVA with rightsided weakness - cont aspirin and statin DM type 2 - consistent carb diet h/o CHF - cont home meds, cardiology following Sinus bradycardia, med induced - d/randall atenolol Elevated troponin, likely from Maryanne and elevated BP - preserved Ef on 2d echo - no further workup per cardiology Subjective Date of service: 03/19/18 Principal diagnosis: maryanne Interval history: Pt seen and examined No acute event o/n denies any SOB or chest pain serum cr slightly trended up today Objective - Exam Narrative Exam: General appearance: Present: no acute distress, obese, other (elderly female) - EENT Eyes: no scleral icterus ENT: hearing intact, clear oral mucosa Ears: bilateral: normal - Neck Neck: supple, normal ROM - Respiratory Respiratory effort: normal Respiratory: bilateral: CTA - Breasts Breasts: normal - Cardiovascular Rhythm: regular Heart Sounds: Present: S1 & S2. Absent: gallop, rub Extremities: pulses intact, No edema, normal color, Full ROM - Gastrointestinal General gastrointestinal: Present: soft, non-tender, non-distended, normal bowel sounds - Genitourinary Female genitourinary: normal - Integumentary Integumentary: clear, warm, dry - Musculoskeletal Musculoskeletal: 1, strength equal bilaterally - Neurologic Neurologic: moves all extremities - Psychiatric Psychiatric: memory intact, appropriate mood/affect, intact judgment & insight - Constitutional Vitals: Vital Signs - 12hr 03/19/18 05:43 Temperature 98.0 F Pulse Rate 48 L Respiratory 20 Rate Blood Pressure 162/45 O2 Sat by Pulse 95 Oximetry - Labs CBC & Chem 7: 03/20/18 07:25 03/20/18 07:25 Labs: Abnormal lab results 03/18/18 03/18/18 03/18/18 Range/Units 16:44 18:01 21:55 Heparin Anti-Xa Level (0.3-0.7) U.I./ml BUN (7-17) mg/dL Creatinine (0.7-1.2) mg/dL Glucose (65-100) mg/dL POC Glucose 182 H 168 H (70-105) Troponin T 0.119 H* (0.00-0.029) ng/mL 03/19/18 03/19/18 03/19/18 Range/Units 00:00 05:20 05:20 Heparin Anti-Xa Level 0.13 L (0.3-0.7) U.I./ml BUN 43 H (7-17) mg/dL Creatinine 3.2 H (0.7-1.2) mg/dL Glucose 147 H (65-100) mg/dL POC Glucose (70-105) Troponin T 0.128 H* (0.00-0.029) ng/mL 03/19/18 03/19/18 Range/Units 08:19 13:28 Heparin Anti-Xa Level 0.28 L (0.3-0.7) U.I./ml BUN (7-17) mg/dL Creatinine (0.7-1.2) mg/dL Glucose (65-100) mg/dL POC Glucose 160 H (70-105) Troponin T (0.00-0.029) ng/mL
[2018-03-20] MEDS: HumuLIN R SUB-Q SCH ×2 (07:59→11:30)
[2018-03-20 08:38] LABS: Hematocrit 35.8 % (30.3-42.9); Hemoglobin 11.8 gm/dl (10.1-14.3)
[2018-03-20] MEDS: APRESOLINE PO SCH (08:39)
--- NOTE | 2018-03-20 09:10 | Progress Note ---
Subjective Date of service: 03/20/18 Principal diagnosis: rossy Interval history: Sinus bradycardia, stable atenolol discontinued, likely will tolerate b-master in future Hypertension, still not optimal Diabetes Elevated troponin, nonspecific likely in the setting of renal failure [facility] 2015: no significant CAD, EF 40%. normal LVEF by echo 2015. EF this admission 50-55% by echo Original Note: Subjective Date of service: 03/19/18 Interval history: Plan No new changes, bradycardia stable, no further CV workup, renal currently monitoring BUN/CR will add nitrates to help BP control Objective Vital Signs Temp Pulse Resp BP Pulse Ox 03/20/18 01:01 98.0 F 51 L 20 180/64 95 03/19/18 16:55 98.5 F 45 L 18 156/48 100 03/19/18 12:11 98.6 F 48 L 16 166/60 98 - Physical Examination General: Appears Well Neck: Positive: neck supple Cardiac: Positive: Reg Rate and Rhythm, S1/S2, Bradycardia Lungs: Positive: Normal Exam Neuro: Positive: Grossly Intact Abdomen: Positive: Unremarkable - Labs and Meds CBC 03/20/18 Range/Units 07:25 Hgb 11.8 (10.1-14.3) gm/dl Hct 35.8 (30.3-42.9) % Plt Count 288 (140-440) K/mm3 Comprehensive Metabolic Panel 03/20/18 Range/Units 07:25 Sodium 141 (137-145) mmol/L Potassium 4.4 (3.6-5.0) mmol/L Chloride 106.1 (98-107) mmol/L Carbon Dioxide 23 (22-30) mmol/L BUN 39 H (7-17) mg/dL Creatinine 3.0 H (0.7-1.2) mg/dL Glucose 134 H (65-100) mg/dL Calcium 9.0 (8.4-10.2) mg/dL
--- NOTE | 2018-03-20 09:40 | Progress Note ---
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 HENT: Normocephalic. Atraumatic. Patient has moist mucous membranes. EYES: Extraocular motions are intact. Left pupil is reactive to light. 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 NECK: Supple. Trachea is midline. CHEST/LUNGS: Clear to auscultation. There is no respiratory distress noted. HEART/CARDIOVASCULAR: Regular. There is no tachycardia. There is no murmur. ABDOMEN: Abdomen is soft, nontender. Patient has normal bowel sounds. There is no abdominal distention. SKIN: Skin is warm and dry. NEURO: The patient is awake, alert, and cooperative. The patient has no focal neurologic deficits. The patient has normal speech. Cranial nerves II through XII grossly intact except for pupillary response in the right eye. No pronator drift. No dysmetria. MUSCULOSKELETAL: There is no tenderness or deformity. There is no evidence of acute injury. - Vital Signs Vital signs: Vital Signs - 12hr 03/20/18 01:01 Temperature 98.0 F Pulse Rate 51 L Respiratory 20 Rate Blood Pressure 180/64 O2 Sat by Pulse 95 Oximetry - Lab 03/20/18 07:25 03/20/18 07:25 Most recent lab results Calcium 9.0 mg/dL (8.4-10.2) 03/20/18 07:25
[2018-03-20] MEDS: PROCARDIA XL PO SCH (09:55)
[2018-03-20] MEDS: ASPIRIN PO SCH (09:55)
[2018-03-20] MEDS ORDERED: ISORDIL TITRADOSE PO SCH (10:00)
[2018-03-20 10:08] LABS: Bacteria,Urine 1+ /HPF (Negative); Bilirubin,Urine NEG (Negative); Blood,Urine NEG (Negative); Color,Urine Straw (Yellow); Mucus,Urine FEW /HPF; Urobilinogen,Urine < 2.0 mg/dL (<2.0)
[2018-03-20 10:09] LABS: Protein,Urine >500 mg/dL (Negative)
--- NOTE | 2018-03-20 13:04 | Discharge Summary ---
Providers - Providers Date of Admission: 03/17/18 22:17 Date of discharge: 03/20/18 Attending physician: KAMALA VELAZCO 03/18/18 06:00 Consult to Physician [CONS] Routine Comment: Consulting Provider: LEAH ASHFORD Physician Instructions: Reason For Exam: SYMPTOMATIC BRADYCARDIA Consult to Physician [CONS] Routine Comment: Consulting Provider: LINDA BETH Physician Instructions: Reason For Exam: MARYANNE 03/18/18 06:25 Physical Therapy Evaluation and Treat [CONS] Routine Comment: Reason For Exam: UNSTEADY GAIT Primary care physician: ANAESTHESIOLOGIST Hospitalization Condition: Fair Hospital course: Discharge diagnosis: MARYANNE on ckd - monitor renal function and follow BMP - nephrology consulted - started on low volume iv fluid HTN, uncontrolled - d/randall atenolol, cont on procardia, isosorbide and hydralazine dizziness, likely from Maryanne and uncontrolled BP - CT head negative, adjust meds to better control BP h/o CVA with rightsided weakness - cont aspirin and statin DM type 2 - consistent carb diet h/o CHF - cont home meds, cardiology following Sinus bradycardia, med induced - d/randall atenolol Elevated troponin, likely from Maryanne and elevated BP - preserved Ef on 2d echo - no further workup per cardiology Physical exam - Exam Narrative Exam: General appearance: Present: no acute distress, obese, other (elderly female) - EENT Eyes: no scleral icterus ENT: hearing intact, clear oral mucosa Ears: bilateral: normal - Neck Neck: supple, normal ROM - Respiratory Respiratory effort: normal Respiratory: bilateral: CTA - Breasts Breasts: normal - Cardiovascular Rhythm: regular Heart Sounds: Present: S1 & S2. Absent: gallop, rub Extremities: pulses intact, No edema, normal color, Full ROM - Gastrointestinal General gastrointestinal: Present: soft, non-tender, non-distended, normal bowel sounds - Genitourinary Female genitourinary: normal - Integumentary Integumentary: clear, warm, dry - Musculoskeletal Musculoskeletal: 1, strength equal bilaterally - Neurologic Neurologic: moves all extremities - Psychiatric Psychiatric: memory intact, appropriate mood/affect, intact judgment & insight Disposition: [id number] HOME UNDER [facility] Time spent for discharge: 34 minutes Core Measure Documentation - Palliative Care Palliative Care/ Comfort Measures: Not Applicable - Core Measures Any of the following diagnoses?: none Exam - Constitutional Vitals: Temp Pulse Resp BP Pulse Ox 98.0 F 57 L 20 170/52 95 03/20/18 01:01 03/20/18 11:29 03/20/18 01:01 03/20/18 11:29 03/20/18 01:01 Plan Activity: advance as tolerated Weight Bearing Status: Non-Weight Bearing Diet: renal Follow up with: PRIMARY CARE, [Primary Care Provider] - 3-5 Days Prescriptions: hydrALAZINE [Apresoline TAB] 100 mg PO TID #90 tab hydrALAZINE [Apresoline TAB] 50 mg PO TID #90 tablet Isosorbide Dinitrate [Isordil Titradose] 5 mg PO Q8HR #90 tablet NIFEdipine XL [Procardia Xl] 60 mg PO QDAY #90 tablet
[2018-03-20 13:55] VITALS: BP 140/52
[2018-03-20] MEDS ORDERED: APRESOLINE PO SCH ×2 (14:00)
== END 2018-03-20 14:30 | disposition home health service (06) | DRG 683 ==
LOC: ED 13:48 → 3A 22:17
PROVIDERS: ADMIT Internal Medicine; ATTEND Internal Medicine
DX: N17.9 Acute kidney failure, unspecified (principal); I69.351 Hemiplegia and hemiparesis following cerebral infarction affecting right dominant side; I13.0 Hypertensive heart and chronic kidney disease with heart failure and stage 1 through stage 4 chronic kidney disease, or unspecified chronic kidney disease; I42.9 Cardiomyopathy, unspecified; R00.1 Bradycardia, unspecified; N18.9 Chronic kidney disease, unspecified; E11.22 Type 2 diabetes mellitus with diabetic chronic kidney disease; E11.65 Type 2 diabetes mellitus with hyperglycemia; I50.9 Heart failure, unspecified; Z79.4 Long term (current) use of insulin; Z79.899 Other long term (current) drug therapy; I25.2 Old myocardial infarction
CPT/HCPCS: 36415; 70450; 71045; 76770; 80048; 80053; 80061; 81001; 82550; 82553; 82962; 84443; 84484; 85014; 85018; 85025; 85049; 85520; 85610; 85730; 89050; 93005; 93010; 93306; 93880; 96374; A9270-GY; J0360; J1644; J1815

== ENCOUNTER 2018-07-14 15:25 | Outpatient (CLI) | payer MEDICARE ==
[2018-07-14 16:52] LABS: Alanine Aminotransferase 25 units/L (7-56); Albumin 3.3 g/dL (3.9-5); BUN/Creatinine Ratio 14; Blood Urea Nitrogen 60 mg/dL (7-17); Calcium 9.3 mg/dL (8.4-10.2); Hemolysis Index 42
[2018-07-14 16:53] LABS: Bilirubin,Direct < 0.2 mg/dL (0-0.2)
[2018-07-18 12:07] LABS: Creatinine,Urine 83.7 mg/dL (0.1-20.0)
[2018-07-18 20:37] LABS: Albumin 3.4 g/dL (3.8-4.8); Gamma Globulin 0.9 g/dL (0.8-1.7)
[2018-07-19 20:08] LABS: Myeloperoxidase Antibody <1.0 AI (<1.0)
== END 2018-07-14 15:26 | disposition home or self-care (01) ==
LOC: LAB 15:25
PROVIDERS: ATTEND Internal Medicine Nephrology
DX: E11.22 Type 2 diabetes mellitus with diabetic chronic kidney disease (principal); R94.4 Abnormal results of kidney function studies; I13.0 Hypertensive heart and chronic kidney disease with heart failure and stage 1 through stage 4 chronic kidney disease, or unspecified chronic kidney disease; N18.9 Chronic kidney disease, unspecified; I50.9 Heart failure, unspecified; E78.5 Hyperlipidemia, unspecified; R80.9 Proteinuria, unspecified
CPT/HCPCS: 36415; 80048; 80076; 82565; 82570; 82575; 84100; 84156; 84165; 86021; 86160; 86225

== ENCOUNTER 2019-03-11 09:19 | Emergency (ER) | payer MEDICARE ==
[2019-03-11 09:36] VITALS: BP 184/59
--- NOTE | 2019-03-11 10:45 | Emergency Department Report ---
ED ENT HPI - General Chief complaint: Dental/Oral Stated complaint: TOOTHACHE Time Seen by Provider: 03/11/19 09:57 Source: patient Mode of arrival: Ambulatory Limitations: No Limitations - Related Data Home Medications Medication Instructions Recorded Confirmed Last Taken Atorvastatin [Lipitor] 80 mg PO QAM 03/17/18 03/17/18 Unknown Insulin Detemir [Levemir Flextouch] 15 unit SQ BID 03/17/18 03/17/18 Unknown glipiZIDE [Glipizide] 10 mg PO BID 03/17/18 03/17/18 Unknown Previous Rx's Medication Instructions Recorded Last Taken Type Isosorbide Dinitrate [Isordil 5 mg PO Q8HR #90 tablet 03/20/18 Unknown Rx Titradose] NIFEdipine XL [Procardia Xl] 60 mg PO QDAY #90 tablet 03/20/18 Unknown Rx hydrALAZINE [Apresoline TAB] 50 mg PO TID #90 tablet 03/20/18 Unknown Rx hydrALAZINE [Apresoline TAB] 100 mg PO TID #90 tab 03/20/18 Unknown Rx Amoxicillin [Amoxicillin TAB] 875 mg PO BID #20 tablet 03/11/19 Unknown Rx Chlorhexidine Mouthwash [Peridex] 15 ml MM BID #473 bottle 03/11/19 Unknown Rx Lidocaine Viscous 2% 5 ml MM Q3H PRN #120 udc 03/11/19 Unknown Rx Tramadol HCl/Acetaminophen 1 each PO Q6HR PRN #14 tablet 03/11/19 Unknown Rx [Ultracet] Allergies Allergy/AdvReac Type Severity Reaction Status Date / Time No Known Allergies Allergy Verified 10/02/13 23:34 ED Dental HPI - General Chief complaint: Dental/Oral Stated complaint: TOOTHACHE Time Seen by Provider: 03/11/19 09:57 Source: patient Mode of arrival: Ambulatory Limitations: No Limitations - Related Data Home Medications Medication Instructions Recorded Confirmed Last Taken Atorvastatin [Lipitor] 80 mg PO QAM 03/17/18 03/17/18 Unknown Insulin Detemir [Levemir Flextouch] 15 unit SQ BID 03/17/18 03/17/18 Unknown glipiZIDE [Glipizide] 10 mg PO BID 03/17/18 03/17/18 Unknown Previous Rx's Medication Instructions Recorded Last Taken Type Isosorbide Dinitrate [Isordil 5 mg PO Q8HR #90 tablet 03/20/18 Unknown Rx Titradose] NIFEdipine XL [Procardia Xl] 60 mg PO QDAY #90 tablet 03/20/18 Unknown Rx hydrALAZINE [Apresoline TAB] 50 mg PO TID #90 tablet 03/20/18 Unknown Rx hydrALAZINE [Apresoline TAB] 100 mg PO TID #90 tab 03/20/18 Unknown Rx Amoxicillin [Amoxicillin TAB] 875 mg PO BID #20 tablet 03/11/19 Unknown Rx Chlorhexidine Mouthwash [Peridex] 15 ml MM BID #473 bottle 03/11/19 Unknown Rx Lidocaine Viscous 2% 5 ml MM Q3H PRN #120 udc 03/11/19 Unknown Rx Tramadol HCl/Acetaminophen 1 each PO Q6HR PRN #14 tablet 03/11/19 Unknown Rx [Ultracet] Allergies Allergy/AdvReac Type Severity Reaction Status Date / Time No Known Allergies Allergy Verified 10/02/13 23:34 ED Review of Systems ROS: Stated complaint: TOOTHACHE Other details as noted in HPI Comment: All other systems reviewed and negative ED Past Medical Hx - Past Medical History Hx Hypertension: Yes Hx CVA: Yes Hx Heart Attack/AMI: Yes ([place]) Hx Congestive Heart Failure: Yes Hx Diabetes: Yes Hx Deep Vein Thrombosis: No Hx Pulmonary Embolism: No Hx Liver Disease: No Hx Seizures: No Hx Asthma: No Hx COPD: No Hx Tuberculosis: No Hx Dementia: No Hx HIV: No - Surgical History Hx Coronary Stent: No Hx Pacemaker: No Hx Internal Defibrillator: No Additional Surgical History: left shoulder sx - Social History Smoking Status: Never Smoker Substance Use Type: None - Medications Home Medications: Home Medications Medication Instructions Recorded Confirmed Last Taken Type Atorvastatin [Lipitor] 80 mg PO QAM 03/17/18 03/17/18 Unknown History Insulin Detemir [Levemir Flextouch] 15 unit SQ BID 03/17/18 03/17/18 Unknown History glipiZIDE [Glipizide] 10 mg PO BID 03/17/18 03/17/18 Unknown History Isosorbide Dinitrate [Isordil 5 mg PO Q8HR #90 tablet 03/20/18 Unknown Rx Titradose] NIFEdipine XL [Procardia Xl] 60 mg PO QDAY #90 tablet 03/20/18 Unknown Rx hydrALAZINE [Apresoline TAB] 50 mg PO TID #90 tablet 03/20/18 Unknown Rx hydrALAZINE [Apresoline TAB] 100 mg PO TID #90 tab 03/20/18 Unknown Rx Amoxicillin [Amoxicillin TAB] 875 mg PO BID #20 tablet 03/11/19 Unknown Rx Chlorhexidine Mouthwash [Peridex] 15 ml MM BID #473 bottle 03/11/19 Unknown Rx Lidocaine Viscous 2% 5 ml MM Q3H PRN #120 udc 03/11/19 Unknown Rx Tramadol HCl/Acetaminophen 1 each PO Q6HR PRN #14 tablet 03/11/19 Unknown Rx [Ultracet] ED Physical Exam - General Limitations: No Limitations General appearance: alert, in no apparent distress - Head Head exam: Present: atraumatic, normocephalic - Eye Eye exam: Present: normal appearance, PERRL Pupils: Present: normal accommodation - ENT ENT exam: Present: mucous membranes moist, TM's normal bilaterally, other (dental erosions and dental caries noted to the left lower region. Airway is patent. Tongue and uvula are midline. No abscess formation, no exudate.) - Neck Neck exam: Present: normal inspection - Respiratory Respiratory exam: Present: normal lung sounds bilaterally. Absent: respiratory distress, wheezes, rales, chest wall tenderness, accessory muscle use - Cardiovascular Cardiovascular Exam: Present: regular rate, normal rhythm. Absent: systolic murmur, diastolic murmur, rubs, gallop - GI/Abdominal GI/Abdominal exam: Present: soft, normal bowel sounds, other - Extremities Exam Extremities exam: Present: normal inspection, full ROM, normal capillary refill - Back Exam Back exam: Present: normal inspection. Absent: CVA tenderness (R), CVA tenderness (L) - Neurological Exam Neurological exam: Present: alert, oriented X3, CN II-XII intact - Psychiatric Psychiatric exam: Present: normal affect, normal mood - Skin Skin exam: Present: warm, dry, intact, normal color. Absent: rash ED Course Vital Signs 03/11/19 09:31 Temperature 98.5 F Pulse Rate 52 L Respiratory 20 Rate Blood Pressure 184/59 O2 Sat by Pulse 99 Oximetry Critical care attestation.: If time is entered above; I have spent that time in minutes in the direct care of this critically ill patient, excluding procedure time. ED Disposition Clinical Impression: Dentalgia Disposition: DC-01 TO HOME OR SELFCARE Is pt being admited?: No Does the pt Need Aspirin: No Condition: Stable Instructions: Dental Abscess (ED), Dental Caries (ED), Acute dental trauma (ED), Toothache (ED) Prescriptions: Amoxicillin [Amoxicillin TAB] 875 mg PO BID #20 tablet Lidocaine Viscous 2% 5 ml MM Q3H PRN #120 udc PRN Reason: Pain, Moderate (4-6) Chlorhexidine Mouthwash [Peridex] 15 ml MM BID #473 bottle Tramadol HCl/Acetaminophen [Ultracet] 1 each PO Q6HR PRN #14 tablet PRN Reason: Pain Referrals: [facility] [Outside] - 3-5 Days
== END 2019-03-11 11:11 | disposition home or self-care (01) ==
LOC: ED 09:19
DX: K08.89 Other specified disorders of teeth and supporting structures (principal); I11.0 Hypertensive heart disease with heart failure; I50.9 Heart failure, unspecified; E11.9 Type 2 diabetes mellitus without complications; Z79.4 Long term (current) use of insulin; Z79.899 Other long term (current) drug therapy
CPT/HCPCS: 99282

== ENCOUNTER 2019-04-23 23:50 | Inpatient (IN) | payer MEDICARE ==
--- NOTE | 2019-04-24 00:23 | Emergency Department Report ---
ED General Adult HPI - General Chief complaint: Dyspnea/Respdistress Stated complaint: DIFFICULTY IN BREATHING Time Seen by Provider: 04/24/19 00:20 Source: patient, family, RN notes reviewed, old records reviewed Mode of arrival: Ambulatory Limitations: No Limitations - History of Present Illness Initial comments: The patient is a 58-year-old female. The patient typically follows with the [facility]. Her past medical history includes stroke, right-sided deficits, right-sided ocular blindness, congestive heart failure, hypertension, heart disease, renal insufficiency. The patient presents to the ER today with complaint of painless shortness of breath. It is intermittent and now resolved. She has bilateral lower extremity swelling. She endorses no weight gain or weight loss that she is aware of. She denies DVT and pulmonary embolism risk factors. She endorses compliance with her outpatient medications. She makes no complaint of orthopnea. -: Gradual, hour(s) Improves with: rest Worsens with: movement Associated Symptoms: shortness of breath - Related Data Home Medications Medication Instructions Recorded Confirmed Last Taken Atorvastatin [Lipitor] 80 mg PO QAM 03/17/18 03/17/18 Unknown Insulin Detemir (Nf) [Levemir 15 unit SQ BID 03/17/18 03/17/18 Unknown Flextouch (Nf)] glipiZIDE [Glipizide] 10 mg PO BID 03/17/18 03/17/18 Unknown Previous Rx's Medication Instructions Recorded Last Taken Type Isosorbide Dinitrate [Isordil 5 mg PO Q8HR #90 tablet 03/20/18 Unknown Rx Titradose] NIFEdipine XL [Procardia Xl] 60 mg PO QDAY #90 tablet 03/20/18 Unknown Rx hydrALAZINE [Apresoline TAB] 50 mg PO TID #90 tablet 03/20/18 Unknown Rx hydrALAZINE [Apresoline TAB] 100 mg PO TID #90 tab 03/20/18 Unknown Rx Amoxicillin [Amoxicillin TAB] 875 mg PO BID #20 tablet 03/11/19 Unknown Rx Chlorhexidine Mouthwash [Peridex] 15 ml MM BID #473 bottle 03/11/19 Unknown Rx Lidocaine Viscous 2% 5 ml MM Q3H PRN #120 udc 03/11/19 Unknown Rx Tramadol HCl/Acetaminophen 1 each PO Q6HR PRN #14 tablet 03/11/19 Unknown Rx [Ultracet] Allergies Allergy/AdvReac Type Severity Reaction Status Date / Time No Known Allergies Allergy Verified 10/02/13 23:34 ED Review of Systems ROS: Stated complaint: DIFFICULTY IN BREATHING Other details as noted in HPI Constitutional: denies: fever Eyes: denies: eye discharge ENT: denies: congestion Respiratory: shortness of breath Cardiovascular: edema. denies: chest pain Gastrointestinal: denies: abdominal pain Genitourinary: denies: dysuria Musculoskeletal: denies: back pain Neurological: weakness Hematological/Lymphatic: denies: easy bleeding ED Past Medical Hx - Past Medical History Previous Medical History?: Yes Hx Hypertension: Yes Hx CVA: Yes Hx Heart Attack/AMI: Yes ([place]) Hx Congestive Heart Failure: Yes Hx Diabetes: Yes Hx Deep Vein Thrombosis: No Hx Pulmonary Embolism: No Hx Liver Disease: No Hx Seizures: No Hx Asthma: No Hx COPD: No Hx Tuberculosis: No Hx Dementia: No Hx HIV: No - Surgical History Past Surgical History?: Yes Hx Coronary Stent: No Hx Pacemaker: No Hx Internal Defibrillator: No Additional Surgical History: left shoulder sx - Social History Smoking Status: Former Smoker Substance Use Type: None - Medications Home Medications: Home Medications Medication Instructions Recorded Confirmed Last Taken Type Atorvastatin [Lipitor] 80 mg PO QAM 03/17/18 03/17/18 Unknown History Insulin Detemir (Nf) [Levemir 15 unit SQ BID 03/17/18 03/17/18 Unknown History Flextouch (Nf)] glipiZIDE [Glipizide] 10 mg PO BID 03/17/18 03/17/18 Unknown History Isosorbide Dinitrate [Isordil 5 mg PO Q8HR #90 tablet 03/20/18 Unknown Rx Titradose] NIFEdipine XL [Procardia Xl] 60 mg PO QDAY #90 tablet 03/20/18 Unknown Rx hydrALAZINE [Apresoline TAB] 50 mg PO TID #90 tablet 03/20/18 Unknown Rx hydrALAZINE [Apresoline TAB] 100 mg PO TID #90 tab 03/20/18 Unknown Rx Amoxicillin [Amoxicillin TAB] 875 mg PO BID #20 tablet 03/11/19 Unknown Rx Chlorhexidine Mouthwash [Peridex] 15 ml MM BID #473 bottle 03/11/19 Unknown Rx Lidocaine Viscous 2% 5 ml MM Q3H PRN #120 udc 03/11/19 Unknown Rx Tramadol HCl/Acetaminophen 1 each PO Q6HR PRN #14 tablet 03/11/19 Unknown Rx [Ultracet] ED Physical Exam - General Limitations: No Limitations, Other (chaperoned by nurse peyman Farris) General appearance: alert, in no apparent distress - Head Head exam: Present: atraumatic, normocephalic - Eye Eye exam: Present: normal appearance, EOMI. Absent: nystagmus - ENT ENT exam: Present: normal exam, normal orophraynx, mucous membranes moist, n ormal external ear exam - Neck Neck exam: Present: normal inspection, full ROM, other (bilateral jugular venous distention is noted). Absent: tenderness, meningismus - Respiratory Respiratory exam: Present: rales. Absent: respiratory distress - Cardiovascular Cardiovascular Exam: Present: normal rhythm, bradycardia, normal heart sounds. Absent: systolic murmur, diastolic murmur, rubs, gallop - GI/Abdominal GI/Abdominal exam: Present: soft. Absent: distended, tenderness, pulsatile mass - Extremities Exam Extremities exam: Present: normal inspection, full ROM, pedal edema (3+ edema noted in the bilateral lower extremities. There is no palpable cord. There is a negative Homans sign.), other (2+ pulses noted in the bilateral upper, lower extremities. There is no long bone tenderness. Musculoskeletal compartments are soft. The pelvis is stable.). Absent: calf tenderness - Back Exam Back exam: Present: normal inspection, full ROM. Absent: tenderness, CVA tenderness (R), CVA tenderness (L), paraspinal tenderness, vertebral tenderness - Neurological Exam Neurological exam: Present: alert, oriented X3, normal gait, other (there is no facial droop. The tongue is midline. Extraocular movements are intact b ilaterally. Patient speaking in full complete sentences. Shoulder shrug is intact bilaterally. Hearing is grossly intact bilaterally. Visual acuity intact to finger counting and color perception at a close distance. 5/5 strength 4 extremities. Sensation intact to light touch in 4 extremities.). Absent: motor sensory deficit - Psychiatric Psychiatric exam: Present: anxious - Skin Skin exam: Present: warm, dry, intact, normal color. Absent: rash ED Course Vital Signs 04/23/19 23:58 Temperature 98.5 F Pulse Rate 51 L Respiratory 18 Rate Blood Pressure 228/67 O2 Sat by Pulse 97 Oximetry ED Medical Decision Making - Lab Data Result diagrams: 04/24/19 00:56 04/24/19 00:56 Vital Signs 04/23/19 23:58 Temperature 98.5 F Pulse Rate 51 L Respiratory 18 Rate Blood Pressure 228/67 O2 Sat by Pulse 97 Oximetry - EKG Data -: EKG Interpreted by [facility] EKG shows normal: sinus rhythm Rate: bradycardia - EKG Data When compared to previous EKG there are: no significant change 04/24/19 02:43 The EKG shows a sinus bradycardia, left axis deviation, motion artifact, left anterior fascicular block, low voltage, EKG abnormal, unchanged from prior EKG from March 2018. Rate 50 beats for minute. - Radiology Data Radiology results: report reviewed, image reviewed Print Report Referring Physician: ASHLEIGH MCRAE Patient Name: CHACHO TILLMAN Date of : 1960 Sex: Female Report Date: 2019-04-24 Report Status: Finalized Findings [address] [address] XRay Report Signed Patient: CHACHO TILLMAN MR#: [id number] : 1960 Acct:[id number] Age/Sex: 58 / F ADM Date: 04/23/19 Loc: ED Attending Dr: Ordering Physician: ASHLEIGH MCRAE NP Date of Service: 04/24/19 Procedure(s): XR chest 1V ap Accession Number(s): [id number] cc: ASHLEIGH MCRAE NP Fluoro Time In Minutes: CHEST 1 VIEW INDICATION / CLINICAL INFORMATION: Chest Pain. COMPARISON: 03/17/2018 FINDINGS: SUPPORT DEVICES: None. HEART / MEDIASTINUM: Cardiac silhouette size is moderately enlarged but stable. LUNGS / PLEURA: Mild interstitial pulmonary edema is present. The lungs are otherwise grossly clear. No significant pleural effusion. No pneumothorax. ADDITIONAL FINDINGS: No significant additional findings. IMPRESSION: 1. Cardiomegaly with mild interstitial pulmonary edema. Signer Name: Shanta Garner MD Signed: 04/24/2019 12:30 AM Workstation Name: [id number] Transcribed By: Dictated By: Shanta Garner MD Electronically Authenticated By: Shanta Garner MD Signed Date/Time: 04/24/19 0030 - Medical Decision Making Differential diagnosis, including but not limited to: Cardiorenal syndrome, fluid overload, hypertensive urgency, acute on chronic renal insufficiency Assessment and plan: 58-year-old female who endorses shortness of breath, found to be hypertensive, with rales on pulmonary findings, JVD, lower extremity edema. Suspect cardiorenal syndrome, acute on chronic renal insufficiency. She is amenable to hospitalization, and she denies DVT and pulmonary embolism risk factors. She'll be given hydralazine, aspirin, and high-dose Lasix. Discussed plan of care for [facility] with the patient, who is amenable and agrees. Elevated troponin reviewed and appreciated, this is likely type II troponin leak, likely secondary to the aforementioned medical issues. Hospital physician Dr. Najera has accepted the patient to the medical service. Critical Care Time: Yes Critical care time in (mins) excluding proc time.: 35 Critical care attestation.: If time is entered above; I have spent that time in minutes in the direct care of this critically ill patient, excluding procedure time. ED Disposition Clinical Impression: Cardiorenal syndrome with renal failure Disposition: DC-09 OP ADMIT IP TO THIS HOSP Is pt being admited?: Yes Condition: Fair Referrals: PRIMARY CARE, [Primary Care Provider] - 3-5 Days
--- NOTE | 2019-04-24 00:35 | XRay Report ---
CHEST 1 VIEW INDICATION / CLINICAL INFORMATION: Chest Pain. COMPARISON: 03/17/2018 FINDINGS: SUPPORT DEVICES: None. HEART / MEDIASTINUM: Cardiac silhouette size is moderately enlarged but stable. LUNGS / PLEURA: Mild interstitial pulmonary edema is present. The lungs are otherwise grossly clear. No significant pleural effusion. No pneumothorax. ADDITIONAL FINDINGS: No significant additional findings. IMPRESSION: 1. Cardiomegaly with mild interstitial pulmonary edema. Signer Name: Shanta Garner MD Signed: 04/24/2019 12:30 AM Workstation Name: [id number]
[2019-04-24 01:26] LABS: Basophils # (Auto) 0.1 K/mm3 (0.0-0.1); Basophils % (Auto) 0.6 % (0.0-1.8); Eosinophils # (Auto) 0.2 K/mm3 (0.0-0.4); Eosinophils % (Auto) 1.8 % (0.0-4.3); Hematocrit 32.3 % (30.3-42.9); Hemoglobin 10.5 gm/dl (10.1-14.3); Lymphocytes # (Auto) 0.7 K/mm3 (1.2-5.4); Lymphocytes % (Auto) 6.5 % (13.4-35.0); Mean Corpuscular HGB Conc 32 % (30-34); Mean Corpuscular Volume 85 fl (79-97); Monocytes # (Auto) 0.5 K/mm3 (0.0-0.8); Monocytes % (Auto) 4.7 % (0.0-7.3); Platelet Count 314 K/mm3 (140-440); Red Blood Count 3.79 M/mm3 (3.65-5.03); Red Cell Distribution Width 14.4 % (13.2-15.2)
[2019-04-24 01:36] LABS: INR 1.01 (0.87-1.13)
[2019-04-24 01:48] LABS: Calcium 8.4 mg/dL (8.4-10.2)
[2019-04-24] MEDS ORDERED: ASPIRIN 81 MG TAB CHEW PO ONE (02:08)
[2019-04-24] MEDS ORDERED: hydrALAZINE 20 MG/1 ML INJ IV STA (02:08)
[2019-04-24] MEDS ORDERED: FUROSEMIDE 100 MG/10 ML INJ IV ONE ×2 (02:08→03:36)
[2019-04-24] MEDS ORDERED: SODIUM BICARB 8.4% 50 MEQ/50 ML SYRINGE IV ONE (02:08)
[2019-04-24] MEDS ORDERED: ACETAMINOPHEN 325 MG TAB PO PRN (02:36)
[2019-04-24] MEDS ORDERED: DEXTROSE 50% IN WATER (25GM) 50 ML SYRINGE IV PRN (02:36)
[2019-04-24] MEDS ORDERED: ALBUTEROL 2.5 MG/3 ML NEBU IH PRN (02:36)
[2019-04-24] MEDS ORDERED: ONDANSETRON 4 MG/2 ML INJ IV PRN (02:36)
[2019-04-24] MEDS ORDERED: oxyCODONE /ACETAMINOPHEN 5-325MG TAB PO PRN (02:39)
--- NOTE | 2019-04-24 02:49 | History and Physical Report ---
<SADI SANDERS - Last Filed: 04/24/19 03:26> History of Present Illness Date of examination: 04/24/19 Date of admission: 04/24/2019 Chief complaint: SOB, Difficulty in Breathing History of present illness: 58-year-old -English female with history of CHF, diabetes type 2, bradycardia, CKD3, CAD, CVA with right-sided residual deficits, and right eye blindness consents to [facility] with complaints of difficulty in breathing. Patient's daughters are present at bedside and have assisted in providing history. Patient called her younger daughter and ask if she could take her to the ER, because she was having difficulty breathing and shortness of breath. Upon arrival to the patient's home at daughter found her mom exhibiting labored breathing, and transported her to the ED. At the time of my examination patient's shortness of breath has resolved. She is able to lay at 30 degree angle on stretcher comfortably. Of note patient has chronic history bradycardia, and is asymptomatic. She has a loop recorder which was placed in October of this year by her field handyman at [facility]. Details have been given to the family as to when the loop recorder will be discontinued. Her PCP is at [facility]. Past History Past Medical History: CAD, diabetes (type 2), heart failure, renal failure (CDK3), stroke (with right sided residual deficits, right ramírez blindness), other (bradycardia, pt has loop recorder since October 2018) Past Surgical History: Other (left shoulder surgery) Social history: lives with family (son), other (former smoker) Family history: hypertension Medications and Allergies Allergies Allergy/AdvReac Type Severity Reaction Status Date / Time No Known Allergies Allergy Verified 10/02/13 23:34 Home Medications Medication Instructions Recorded Confirmed Last Taken Type Atorvastatin [Lipitor] 80 mg PO QAM 03/17/18 03/17/18 Unknown History Insulin Detemir (Nf) [Levemir 15 unit SQ BID 03/17/18 03/17/18 Unknown History Flextouch (Nf)] glipiZIDE [Glipizide] 10 mg PO BID 03/17/18 03/17/18 Unknown History hydrALAZINE [Apresoline TAB] 100 mg PO TID #90 tab 03/20/18 Unknown Rx Tramadol HCl/Acetaminophen 1 each PO Q6HR PRN #14 tablet 03/11/19 Unknown Rx [Ultracet] Amlodipine Besylate [Norvasc] 10 mg PO 04/24/19 Unknown History Aspirin [Adult Aspirin] 81 mg PO DAILY 04/24/19 04/24/19 Unknown History Atenolol [Tenormin] 50 mg PO DAILY 04/24/19 04/24/19 Unknown History Brimonidine Tartrate [Brimonidine 1 drop OU Q8HR 04/24/19 04/24/19 Unknown History Tartrate 0.2%] Calcium Acetate [Phoslo] 667 mg PO TID 04/24/19 04/24/19 Unknown History Ferrous Sulfate [Ferrous Sulfate 04/24/19 Unknown History 324 MG] Active Meds: Active Medications Acetaminophen (Tylenol) 650 mg PO Q4H PRN PRN Reason: Pain MILD(1-3)/Fever >100.5/COLVIN Albuterol (Proventil) 2.5 mg IH Q3HRT PRN PRN Reason: Shortness Of Breath Dextrose (D50w (25gm) Syringe) 50 ml IV Q30MIN PRN; Protocol PRN Reason: Hypoglycemia Docusate Sodium (Colace) 100 mg PO BID [facility] Furosemide (Lasix) 40 mg IV BID@0600,1800 [facility] Glipizide (Glucotrol) 10 mg PO BID [facility] Heparin Sodium (Porcine) (Heparin) 5,000 unit SUB-Q Q12HR [facility] Hydralazine HCl (Apresoline) 50 mg PO TID [facility] Hydralazine HCl (Apresoline) 10 mg IV Q4HR PRN PRN Reason: Blood Pressure Sodium Chloride (Nacl 0.9% 1000 Ml) 1,000 mls @ 42 mls/hr IV DIRECT [facility] Stop: 04/24/19 12:00 Insulin Human Lispro (Humalog) 0 unit SUB-Q ACHS OMNI[facility]; Protocol Isosorbide Dinitrate (Isordil Titradose) 5 mg PO Q8HR [facility] Miscellaneous Medication (Atorvastatin [Lipitor]) 80 mg PO QAM [facility] Nifedipine (Procardia Xl) 60 mg PO QDAY [facility] Ondansetron HCl (Zofran) 4 mg IV Q6H PRN PRN Reason: Nausea And Vomiting Oxycodone/Acetaminophen (Percocet 5/325) 1 tab PO Q6H PRN PRN Reason: Pain, Moderate (4-6) Sodium Chloride (Sodium Chloride Flush Syringe 10 Ml) 10 ml IV BID [facility] Sodium Chloride (Sodium Chloride Flush Syringe 10 Ml) 10 ml IV PRN PRN PRN Reason: LINE FLUSH Review of Systems All systems: negative Cardiovascular: orthopnea, shortness of breath, dyspnea on exertion, high blood pressure, leg edema Respiratory: shortness of breath, dyspnea on exertion Exam - Physical Exam Narrative exam: Physical exam General appearance: Present: No apparent distress, alert and oriented 3, p leasant, obese, pleasant, well-developed, Adult AA female - EENT Eyes: Present: Left eye PERRL and EOM intact, Right eye blindness r/t CVA ENT: hearing intact, normal dentition - Neck Neck: Present: supple, normal ROM - Respiratory Respiratory effort: Non-labored Respiratory: Diminished throughout - Cardiovascular Heart rate: 50 (bpm) Rhythm: SB, loop recorder Heart Sounds: Present: S1 & S2. Absent: rub, click - Extremities Extremities: no ischemia, pulses intact, bilateral lower extremity pitting edema R>L - Peripheral Assessment Peripheral Pulses: within normal limits - Abdominal General gastrointestinal: Obese, soft, non-tender, normal bowel sounds - Integumentary Integumentary: Present: warm, dry, scattered healed bruising to bilateral lower extremities - Musculoskeletal Musculoskeletal: able to move all extremities 4, right sided residual deficits related to CVA -Neurological Neurological: CN II-XII grossly intact - Psychiatric Psychiatric: cooperative, pleasant - Constitutional Vitals: Temp Pulse Resp BP Pulse Ox 98.5 F 51 L 18 228/67 97 04/23/19 23:58 04/23/19 23:58 04/23/19 23:58 04/23/19 23:58 04/23/19 23:58 Results - Labs CBC & Chem 7: 04/24/19 00:56 04/24/19 00:56 Labs: Laboratory Last Values WBC 11.3 K/mm3 (4.5-11.0) H 04/24/19 00:56 RBC 3.79 M/mm3 (3.65-5.03) 04/24/19 00:56 Hgb 10.5 gm/dl (10.1-14.3) 04/24/19 00:56 Hct 32.3 % (30.3-42.9) 04/24/19 00:56 MCV 85 fl (79-97) 04/24/19 00:56 MCH 28 pg (28-32) 04/24/19 00:56 MCHC 32 % (30-34) 04/24/19 00:56 RDW 14.4 % (13.2-15.2) 04/24/19 00:56 Plt Count 314 K/mm3 (140-440) 04/24/19 00:56 Lymph % (Auto) 6.5 % (13.4-35.0) L 04/24/19 00:56 [place] % (Auto) 4.7 % (0.0-7.3) 04/24/19 00:56 Eos % (Auto) 1.8 % (0.0-4.3) 04/24/19 00:56 Baso % (Auto) 0.6 % (0.0-1.8) 04/24/19 00:56 Lymph # 0.7 K/mm3 (1.2-5.4) L 04/24/19 00:56 [place] # 0.5 K/mm3 (0.0-0.8) 04/24/19 00:56 Eos # 0.2 K/mm3 (0.0-0.4) 04/24/19 00:56 Baso # 0.1 K/mm3 (0.0-0.1) 04/24/19 00:56 Seg Neutrophils % 86.4 % (40.0-70.0) H 04/24/19 00:56 Seg Neutrophils # 9.7 K/mm3 (1.8-7.7) H 04/24/19 00:56 PT 13.2 Sec. (12.2-14.9) 04/24/19 00:56 INR 1.01 (0.87-1.13) 04/24/19 00:56 Sodium 139 mmol/L (137-145) 04/24/19 00:56 Potassium 4.7 mmol/L (3.6-5.0) 04/24/19 00:56 Chloride 111.0 mmol/L (98-107) H 04/24/19 00:56 Carbon Dioxide 14 mmol/L (22-30) L 04/24/19 00:56 Anion Gap 19 mmol/L 04/24/19 00:56 BUN 65 mg/dL (7-17) H 04/24/19 00:56 Creatinine 4.7 mg/dL (0.7-1.2) H 04/24/19 00:56 Estimated GFR 11 ml/min 04/24/19 00:56 BUN/Creatinine Ratio 14 % 04/24/19 00:56 Glucose 206 mg/dL (65-100) H 04/24/19 00:56 Calcium 8.4 mg/dL (8.4-10.2) 04/24/19 00:56 Magnesium 1.80 mg/dL (1.7-2.3) 04/24/19 00:56 Total Creatine Kinase 396 units/L (30-135) H 04/24/19 00:56 Troponin T 0.096 ng/mL (0.00-0.029) H 04/24/19 00:56 NT-Pro-B Natriuret Pep 59465 pg/mL (0-900) H 04/24/19 00:56 - Imaging and Cardiology Imaging and Cardiology: CXR: FINDINGS: SUPPORT DEVICES: None. HEART / MEDIASTINUM: Cardiac silhouette size is moderately enlarged but stable. LUNGS / PLEURA: Mild interstitial pulmonary edema is present. The lungs are otherwise grossly clear. No significant pleural effusion. No pneumothorax. ADDITIONAL FINDINGS: No significant additional findings. IMPRESSION: 1. Cardiomegaly with mild interstitial pulmonary edema. Assessment and Plan Assessment and plan: 58-year-old -English female with history of CHF, diabetes type 2, bradycardia, CKD3, CAD, CVA with right-sided residual deficits, and right eye blindness consents to [facility] with complaints of difficulty in breathing. Acute exacerbation CHF -BNP 36480 -Troponin elevated 1, we will continue to trend -Pt has Loop Recorder -Follows [facility] -Diuresis with IV Lasix -Continue ASA and statin -Cardiology consulted Hypertensive Urgency -BP on admission 228/67 -Hx HTN -Monitor BP -Resume home antihypertensive meds to optimize BP -IV hydralazine when necessary Acute kidney injury -Hx CKD 3 -Cr on admission 4.7 -Gentle hydration with IVF -Avoid Nephrotoxin drugs -Renal dose all meds -Nephrology consulted DM2 -POC BG monitoring -Continue Glipizide -SSI coverage -HgbA1C pending Leukocytosis -WBC on admission 11.3 -No s/s of infection -Continue to monitor for now; hold off on starting abx DVT PPX -On Heparin Advance Directives: No VTE prophylaxis?: Chemical Plan of care discussed with patient/family: Yes <KEITH ABERNATHY - Last Filed: 04/24/19 06:15> History of Present Illness Date of admission: 04/24/19 02:36 Medications and Allergies Active Meds: Active Medications Acetaminophen (Tylenol) 650 mg PO Q4H PRN PRN Reason: Pain MILD(1-3)/Fever >100.5/COLVIN Albuterol (Proventil) 2.5 mg IH Q3HRT PRN PRN Reason: Shortness Of Breath Amlodipine Besylate (Amlodipine) 10 mg PO DAILY [facility] Aspirin (Halfprin Ec) 81 mg PO DAILY [facility] Atorvastatin Calcium (Lipitor) 80 mg PO QAM [facility] Calcium Acetate (Phoslo) 667 mg PO TIDWM [facility] Dextrose (D50w (25gm) Syringe) 50 ml IV Q30MIN PRN; Protocol PRN Reason: Hypoglycemia Docusate Sodium (Colace) 100 mg PO BID [facility] Ferrous Sulfate (Feosol) 325 mg PO DAILY [facility] Furosemide (Lasix) 40 mg IV BID@0600,1800 [facility] Glipizide (Glucotrol) 10 mg PO BIDDIAB [facility] Heparin Sodium (Porcine) (Heparin) 5,000 unit SUB-Q Q12HR [facility] Hydralazine HCl (Apresoline) 10 mg IV Q4HR PRN PRN Reason: Blood Pressure Hydralazine HCl (Apresoline) 100 mg PO TID [facility] Sodium Chloride (Nacl 0.9% 1000 Ml) 1,000 mls @ 42 mls/hr IV DIRECT MONIQUE Stop: 04/24/19 12:00 Insulin Human Lispro (Humalog) 0 unit SUB-Q ACHS MONIQUE; Protocol Miscellaneous Medication (Brimonidine Tartrate [Brimonidine Tartrate 0.2%]) 1 drop OU Q8HR [facility] Ondansetron HCl (Zofran) 4 mg IV Q6H PRN PRN Reason: Nausea And Vomiting Oxycodone/Acetaminophen (Percocet 5/325) 1 tab PO Q6H PRN PRN Reason: Pain, Moderate (4-6) Sodium Chloride (Sodium Chloride Flush Syringe 10 Ml) 10 ml IV BID [facility] Sodium Chloride (Sodium Chloride Flush Syringe 10 Ml) 10 ml IV PRN PRN PRN Reason: LINE FLUSH Exam - Constitutional Vitals: Temp Pulse Resp BP Pulse Ox 98.5 F 48 L 20 136/47 99 04/24/19 04:18 04/24/19 05:30 04/24/19 05:30 04/24/19 05:30 04/24/19 05:30 Results - Labs CBC & Chem 7: 04/24/19 00:56 04/24/19 00:56 Labs: Laboratory Last Values WBC 11.3 K/mm3 (4.5-11.0) H 04/24/19 00:56 RBC 3.79 M/mm3 (3.65-5.03) 04/24/19 00:56 Hgb 10.5 gm/dl (10.1-14.3) 04/24/19 00:56 Hct 32.3 % (30.3-42.9) 04/24/19 00:56 MCV 85 fl (79-97) 04/24/19 00:56 MCH 28 pg (28-32) 04/24/19 00:56 MCHC 32 % (30-34) 04/24/19 00:56 RDW 14.4 % (13.2-15.2) 04/24/19 00:56 Plt Count 314 K/mm3 (140-440) 04/24/19 00:56 Lymph % (Auto) 6.5 % (13.4-35.0) L 04/24/19 00:56 [place] % (Auto) 4.7 % (0.0-7.3) 04/24/19 00:56 Eos % (Auto) 1.8 % (0.0-4.3) 04/24/19 00:56 Baso % (Auto) 0.6 % (0.0-1.8) 04/24/19 00:56 Lymph # 0.7 K/mm3 (1.2-5.4) L 04/24/19 00:56 [place] # 0.5 K/mm3 (0.0-0.8) 04/24/19 00:56 Eos # 0.2 K/mm3 (0.0-0.4) 04/24/19 00:56 Baso # 0.1 K/mm3 (0.0-0.1) 04/24/19 00:56 Seg Neutrophils % 86.4 % (40.0-70.0) H 04/24/19 00:56 Seg Neutrophils # 9.7 K/mm3 (1.8-7.7) H 04/24/19 00:56 PT 13.2 Sec. (12.2-14.9) 04/24/19 00:56 INR 1.01 (0.87-1.13) 04/24/19 00:56 Sodium 139 mmol/L (137-145) 04/24/19 00:56 Potassium 4.7 mmol/L (3.6-5.0) 04/24/19 00:56 Chloride 111.0 mmol/L (98-107) H 04/24/19 00:56 Carbon Dioxide 14 mmol/L (22-30) L 04/24/19 00:56 Anion Gap 19 mmol/L 04/24/19 00:56 BUN 65 mg/dL (7-17) H 04/24/19 00:56 Creatinine 4.7 mg/dL (0.7-1.2) H 04/24/19 00:56 Estimated GFR 11 ml/min 04/24/19 00:56 BUN/Creatinine Ratio 14 % 04/24/19 00:56 Glucose 206 mg/dL (65-100) H 04/24/19 00:56 Hemoglobin A1c 5.1 % (4-6) 04/24/19 00:56 Calcium 8.4 mg/dL (8.4-10.2) 04/24/19 00:56 Magnesium 1.80 mg/dL (1.7-2.3) 04/24/19 00:56 Total Creatine Kinase 396 units/L (30-135) H 04/24/19 00:56 Troponin T 0.096 ng/mL (0.00-0.029) H 04/24/19 00:56 NT-Pro-B Natriuret Pep 71636 pg/mL (0-900) H 04/24/19 00:56 Triglycerides 137 mg/dL (2-149) 04/24/19 03:20 Cholesterol 233 mg/dL (50-199) H 04/24/19 03:20 LDL Cholesterol Direct 175 mg/dL (50-130) H 04/24/19 03:20 HDL Cholesterol 47 mg/dL (40-59) 04/24/19 03:20 Cholesterol/HDL Ratio 4.95 % 04/24/19 03:20 Assessment and Plan Assessment and plan: 58 year old woman with CHF, HTN, DM, CKD comes to the ER for shortness of breath. She is not on a diuretic. agree with plan as stated above, add BB, hold ACEI - worsening renal function
[2019-04-24] MEDS ORDERED: SODIUM CHLORIDE 0.9% 1000 ML 1,000 ML IV SCH (03:00)
[2019-04-24] MEDS ORDERED: hydrALAZINE 20 MG/1 ML INJ ONE (03:37)
[2019-04-24 04:16] LABS: Chol/HDL Ratio 4.95 %
[2019-04-24] MEDS ORDERED: BRIMONIDINE TARTRATE OU SCH (06:00)
[2019-04-24] MEDS ORDERED: FUROSEMIDE 40 MG/4 ML INJ IV SCH (06:00)
[2019-04-24] MEDS ORDERED: ISOSORBIDE DINITRATE 10 MG TAB PO SCH (06:00)
[2019-04-24] MEDS ORDERED: hydrALAZINE 25 MG TAB PO SCH (08:00)
[2019-04-24] MEDS: INSULIN LISPRO 100 UNIT/ML SUB-Q SCH ×4 (08:30→22:24)
[2019-04-24] MEDS: hydrALAZINE 100 MG TAB PO SCH ×3 (08:37→20:37)
[2019-04-24] MEDS: CALCIUM ACETATE 667 MG CAP PO SCH ×3 (08:37→17:47)
[2019-04-24] MEDS: glipiZIDE 10 MG TAB PO SCH ×2 (08:37→17:03)
[2019-04-24] MEDS: FERROUS SULFATE 325 MG TAB PO SCH (09:24)
[2019-04-24] MEDS: ASPIRIN EC 81 MG TAB PO SCH (09:24)
[2019-04-24] MEDS: carvediloL 3.125 MG TAB PO SCH ×2 (09:24→09:25)
[2019-04-24] MEDS: amLODIPine 10 MG TAB PO SCH (09:24)
[2019-04-24] MEDS: DOCUSATE SODIUM 100 MG CAP PO SCH ×2 (09:25→22:24)
[2019-04-24] MEDS: HEPARIN 5,000 UNIT/1 ML VIAL SUB-Q SCH ×2 (09:25→22:24)
--- NOTE | 2019-04-24 09:48 | Consultation ---
History of Present Illness - Reason for Consult Consult date: 04/24/19 chronic renal failure - History of Present Illness This is a 58 year old -[place] female with history of CKD stage 3, CHF, diabetes type 2, CVA with right-sided residual deficits, and right eye blindness who presents to [facility] with complaints of difficulty in breathing. She notes that breathing has improved this morning; she is unable to provide much further history but her family at bedside notes that she saw a revenue stamp cutter roughly two months ago and is known to have stage 3 kidney disease. Not on a diuretic outpatient. Patient currently denies any dyspnea (although is lying at angle on bed), chest pain, appetite changes, metallic taste, nausea, vomiting. She does note some swelling in her feet. Past History Past Medical History: CAD, diabetes (type 2), heart failure, renal failure (CDK3), stroke (with right sided residual deficits, right ramírez blindness), other (bradycardia, pt has loop recorder since October 2018) Past Surgical History: Other (left shoulder surgery) Social history: lives with family (son), other (former smoker) Family history: hypertension Medications and Allergies Allergies Allergy/AdvReac Type Severity Reaction Status Date / Time No Known Allergies Allergy Verified 10/02/13 23:34 Home Medications Medication Instructions Recorded Confirmed Last Taken Type Atorvastatin [Lipitor] 80 mg PO QAM 03/17/18 04/24/19 Unknown History Insulin Detemir (Nf) [Levemir 15 unit SQ BID 03/17/18 04/24/19 1 Day Ago History Flextouch (Nf)] ~04/23/19 glipiZIDE [Glipizide] 10 mg PO BID 03/17/18 04/24/19 Unknown History hydrALAZINE [Apresoline TAB] 100 mg PO TID #90 tab 03/20/18 04/24/19 Unknown Rx Amlodipine Besylate [Norvasc] 10 mg PO DAILY 04/24/19 04/24/19 Unknown History Aspirin [Adult Aspirin] 81 mg PO DAILY 04/24/19 04/24/19 Unknown History Atenolol [Tenormin] 50 mg PO DAILY 04/24/19 04/24/19 Unknown History Brimonidine Tartrate [Brimonidine 1 drop OU Q8HR 04/24/19 04/24/19 Unknown History Tartrate 0.2%] Calcium Acetate [Phoslo] 667 mg PO TID 04/24/19 04/24/19 Unknown History Ferrous Sulfate [Ferrous Sulfate 325 mg PO DAILY 04/24/19 04/24/19 Unknown History 324 MG] Furosemide [Lasix TAB] 40 mg PO DAILY 04/24/19 04/24/19 Unknown History Active Meds: Active Medications Acetaminophen (Tylenol) 650 mg PO Q4H PRN PRN Reason: Pain MILD(1-3)/Fever >100.5/COLVIN Albuterol (Proventil) 2.5 mg IH Q3HRT PRN PRN Reason: Shortness Of Breath Amlodipine Besylate (Amlodipine) 10 mg PO DAILY [facility] Last Admin: 04/24/19 09:24 Dose: 10 mg Documented by: Aspirin (Halfprin Ec) 81 mg PO DAILY [facility] Last Admin: 04/24/19 09:24 Dose: 81 mg Documented by: Atorvastatin Calcium (Lipitor) 80 mg PO QAM [facility] Last Admin: 04/24/19 09:23 Dose: 80 mg Documented by: Calcium Acetate (Phoslo) 667 mg PO TIDWM [facility] Last Admin: 04/24/19 08:37 Dose: 667 mg Documented by: Carvedilol (Coreg) 3.125 mg PO BID [facility] Last Admin: 04/24/19 09:25 Dose: Not Given Documented by: Dextrose (D50w (25gm) Syringe) 50 ml IV Q30MIN PRN; Protocol PRN Reason: Hypoglycemia Docusate Sodium (Colace) 100 mg PO BID [facility] Last Admin: 04/24/19 09:25 Dose: Not Given Documented by: Ferrous Sulfate (Feosol) 325 mg PO DAILY [facility] Last Admin: 04/24/19 09:24 Dose: 325 mg Documented by: Furosemide (Lasix) 40 mg IV BID@0600,1800 [facility] Glipizide (Glucotrol) 10 mg PO BIDDIAB [facility] Last Admin: 04/24/19 08:37 Dose: 10 mg Documented by: Heparin Sodium (Porcine) (Heparin) 5,000 unit SUB-Q Q12HR [facility] Last Admin: 04/24/19 09:25 Dose: Not Given Documented by: Hydralazine HCl (Apresoline) 10 mg IV Q4HR PRN PRN Reason: Blood Pressure Hydralazine HCl (Apresoline) 100 mg PO TID [facility] Last Admin: 04/24/19 08:37 Dose: 100 mg Documented by: Sodium Chloride (Nacl 0.9% 1000 Ml) 1,000 mls @ 42 mls/hr IV DIRECT MONIQUE Stop: 04/24/19 12:00 Insulin Human Lispro (Humalog) 0 unit SUB-Q ACHS [facility]; Protocol Last Admin: 04/24/19 08:30 Dose: Not Given Documented by: Miscellaneous Medication (Brimonidine Tartrate [Brimonidine Tartrate 0.2%]) 1 drop OU Q8HR [facility] Ondansetron HCl (Zofran) 4 mg IV Q6H PRN PRN Reason: Nausea And Vomiting Oxycodone/Acetaminophen (Percocet 5/325) 1 tab PO Q6H PRN PRN Reason: Pain, Moderate (4-6) Sodium Chloride (Sodium Chloride Flush Syringe 10 Ml) 10 ml IV BID [facility] Last Admin: 04/24/19 09:25 Dose: 10 ml Documented by: Sodium Chloride (Sodium Chloride Flush Syringe 10 Ml) 10 ml IV PRN PRN PRN Reason: LINE FLUSH Review of Systems Constitutional: no weight loss, no weight gain, no fever, no chills, no sweats Cardiovascular: shortness of breath, dyspnea on exertion, high blood pressure, leg edema, no chest pain, no palpitations, no rapid/irregular heart beat Respiratory: shortness of breath, dyspnea on exertion, no cough, no hemoptysis, no congestion Gastrointestinal: no abdominal pain, no nausea, no vomiting, no diarrhea Musculoskeletal: no neck stiffness, no neck pain, no low back pain Integumentary: no rash Neurological: no head injury, no numbness, no tingling, no seizures, no headaches Psychiatric: no anxiety Exam - Vital Signs Vital signs: Vital Signs Temp Pulse Resp BP Pulse Ox 98.5 F 51 L 18 228/67 97 04/23/19 23:58 04/23/19 23:58 04/23/19 23:58 04/23/19 23:58 04/23/19 23:58 - Physical Exam Narrative exam: General appearance: Present: No apparent distress, alert and oriented 3, plea denilson, obese, pleasant, well-developed, Adult AA female HEENT: right eye blind, hearing intact Neck: supple Respiratory: non-labored; breath sounds diminished in bases Cardiovascular: bradycardic; S1/S2 present Extremities: 1+ bilateral lower extremity pitting edema Peripheral Pulses: within normal limits Abdominal: obese, soft, non-tender, normal bowel sounds Skin: warm, dry, scattered healed bruising noted Musculoskeletal: able to move all extremities 4, right sided residual deficits related to CVA Neurological: CN II-XII grossly intact; alert and oriented x2 Psychiatric: cooperative, pleasant Results - Lab Results 04/24/19 00:56 04/24/19 00:56 Most recent lab results Calcium 8.4 mg/dL (8.4-10.2) 04/24/19 00:56 Magnesium 1.80 mg/dL (1.7-2.3) 04/24/19 00:56 Assessment and Plan 58-year-old -[place] female with history of CKD 3, CHF, diabetes type 2, CAD, CVA with right-sided residual deficits, and right eye blindness presents with dyspnea likely due to CHF. # KIZZY on CKD: baseline creatinine appears to be around ~4; now 4.7 on admission likely in setting of cardio-renal physiology - continue IV Lasix 40mg BID (s/p Lasix 100mg IV x1 in ED) for now - avoid nephrotoxins, renally dose medications - sending urine studies - no indications for renal replacement therapy acutely - will review outpatient records for more recent labs, screening for secondary hyperparathyroidism, etc # Anemia of CKD: hemoglobin at goal of CKD, no evidence of active bleeding. - no indication for NICOLE # Acute exacerbation of CHF with elevated BNP, tropinemia - agree with current diuresis plan - strict Is/Os - sodium restriction, water restriction discussed with patient - cardiology consulted, appreciate input # Hypertensive Urgency: BP on admission 228/67, now improved overnight - continue current regimen, diuresis # DM2 # Leukocytosis Thank you for this consult; we will continue to follow for all renal-related issues.
[2019-04-24] MEDS ORDERED: FERROUS SULFATE 325 MG PO SCH (10:00)
[2019-04-24] MEDS ORDERED: NON-FORMULARY EACH (Atorvastatin [Lipitor] 80 MG) PO SCH (10:00)
[2019-04-24] MEDS ORDERED: NIFEdipine XL 60 MG TAB PO SCH (10:00)
[2019-04-24 10:58] LABS: Bacteria,Urine 1+ /HPF (Negative); Bilirubin,Urine NEG (Negative); Blood,Urine NEG (Negative); Color,Urine Straw (Yellow); Mucus,Urine FEW /HPF; Urobilinogen,Urine < 2.0 mg/dL (<2.0)
[2019-04-24 10:59] LABS: Protein,Urine >2000 mg dL mg/dL (Negative)
--- NOTE | 2019-04-24 11:02 | Consultation ---
History of Present Illness Consult date: 04/24/19 Requesting physician: SADI SANDERS Consult reason: congestive heart failure, elevated troponin History of present illness: The pt is a 58 year old female with a past medical history of CKD stage 3, HTN, HF, NICMP with recently normalized EF, sinus bradycardia with ? loop recorder in situ, DM, CVA with right-sided residual deficits, and right eye blindness. She has been seen by our practice on prior hospitalizations. 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 She presented with complaints of SOB and BLE swelling for approx 1 week. She is a rather poor historian and does not provide any additional details. She denies any chest pain, palpitations, n/v, diaphoresis, dizziness or syncope. LHC done 12/2014 showed patent coronaries with mild LI in epicardial vessels, EF 40%. Echo done 03/2018 showed EF 50-55%, mod LVH, LA and RA mildly dilated, mild MR. Past History Past Medical History: diabetes (type 2), heart failure, hypertension, renal failure (CDK3), stroke (with right sided residual deficits, right ramírez blindness), other (bradycardia, pt has loop recorder since October 2018) Past Surgical History: Other (left shoulder surgery) Social history: lives with family (son), other (former smoker) Family history: hypertension Medications and Allergies Allergies Allergy/AdvReac Type Severity Reaction Status Date / Time No Known Allergies Allergy Verified 10/02/13 23:34 Home Medications Medication Instructions Recorded Confirmed Last Taken Type Atorvastatin [Lipitor] 80 mg PO QAM 03/17/18 04/24/19 Unknown History Insulin Detemir (Nf) [Levemir 15 unit SQ BID 03/17/18 04/24/19 1 Day Ago History Flextouch (Nf)] ~04/23/19 glipiZIDE [Glipizide] 10 mg PO BID 03/17/18 04/24/19 Unknown History hydrALAZINE [Apresoline TAB] 100 mg PO TID #90 tab 03/20/18 04/24/19 Unknown Rx Amlodipine Besylate [Norvasc] 10 mg PO DAILY 04/24/19 04/24/19 Unknown History Aspirin [Adult Aspirin] 81 mg PO DAILY 04/24/19 04/24/19 Unknown History Atenolol [Tenormin] 50 mg PO DAILY 04/24/19 04/24/19 Unknown History Brimonidine Tartrate [Brimonidine 1 drop OU Q8HR 04/24/19 04/24/19 Unknown His tory Tartrate 0.2%] Calcium Acetate [Phoslo] 667 mg PO TID 04/24/19 04/24/19 Unknown History Ferrous Sulfate [Ferrous Sulfate 325 mg PO DAILY 04/24/19 04/24/19 Unknown History 324 MG] Furosemide [Lasix TAB] 40 mg PO DAILY 04/24/19 04/24/19 Unknown History Active Meds: Active Medications Acetaminophen (Tylenol) 650 mg PO Q4H PRN PRN Reason: Pain MILD(1-3)/Fever >100.5/COLVIN Albuterol (Proventil) 2.5 mg IH Q3HRT PRN PRN Reason: Shortness Of Breath Amlodipine Besylate (Amlodipine) 10 mg PO DAILY [facility] Last Admin: 04/24/19 09:24 Dose: 10 mg Documented by: Aspirin (Halfprin Ec) 81 mg PO DAILY [facility] Last Admin: 04/24/19 09:24 Dose: 81 mg Documented by: Atorvastatin Calcium (Lipitor) 80 mg PO QAM [facility] Last Admin: 04/24/19 09:23 Dose: 80 mg Documented by: Calcium Acetate (Phoslo) 667 mg PO TIDWM [facility] Last Admin: 04/24/19 08:37 Dose: 667 mg Documented by: Carvedilol (Coreg) 3.125 mg PO BID [facility] Last Admin: 04/24/19 09:25 Dose: Not Given Documented by: Dextrose (D50w (25gm) Syringe) 50 ml IV Q30MIN PRN; Protocol PRN Reason: Hypoglycemia Docusate Sodium (Colace) 100 mg PO BID [facility] Last Admin: 04/24/19 09:25 Dose: Not Given Documented by: Ferrous Sulfate (Feosol) 325 mg PO DAILY [facility] Last Admin: 04/24/19 09:24 Dose: 325 mg Documented by: Furosemide (Lasix) 40 mg IV BID@0600,1800 [facility] Glipizide (Glucotrol) 10 mg PO BIDDIAB [facility] Last Admin: 04/24/19 08:37 Dose: 10 mg Documented by: Heparin Sodium (Porcine) (Heparin) 5,000 unit SUB-Q Q12HR [facility] Last Admin: 04/24/19 09:25 Dose: Not Given Documented by: Hydralazine HCl (Apresoline) 10 mg IV Q4HR PRN PRN Reason: Blood Pressure Hydralazine HCl (Apresoline) 100 mg PO TID [facility] Last Admin: 04/24/19 08:37 Dose: 100 mg Documented by: Sodium Chloride (Nacl 0.9% 1000 Ml) 1,000 mls @ 42 mls/hr IV DIRECT [facility] Stop: 04/24/19 12:00 Insulin Human Lispro (Humalog) 0 unit SUB-Q ACHS [facility]; Protocol Last Admin: 04/24/19 08:30 Dose: Not Given Documented by: Miscellaneous Medication (Brimonidine Tartrate [Brimonidine Tartrate 0.2%]) 1 drop OU Q8HR [facility] Ondansetron HCl (Zofran) 4 mg IV Q6H PRN PRN Reason: Nausea And Vomiting Oxycodone/Acetaminophen (Percocet 5/325) 1 tab PO Q6H PRN PRN Reason: Pain, Moderate (4-6) Sodium Chloride (Sodium Chloride Flush Syringe 10 Ml) 10 ml IV BID [facility] Last Admin: 04/24/19 09:25 Dose: 10 ml Documented by: Sodium Chloride (Sodium Chloride Flush Syringe 10 Ml) 10 ml IV PRN PRN PRN Reason: LINE FLUSH Review of Systems Constitutional: no weight loss, no weight gain, no fever, no chills, no sweats Ears, nose, mouth and throat: no ear pain, no nose pain, no sinus pressure, no sinus pain Cardiovascular: edema, shortness of breath, dyspnea on exertion, leg edema, no chest pain, no palpitations, no rapid/irregular heart beat, no syncope, no lightheadedness Respiratory: shortness of breath, dyspnea on exertion, no cough, no congestion, no wheezing, no pain on inspiration Gastrointestinal: no abdominal pain, no nausea, no vomiting, no diarrhea, no constipation, no change in bowel habits Genitourinary Female: no pelvic pain, no flank pain, no dysuria, no urinary frequency, no urgency Musculoskeletal: no neck stiffness, no neck pain, no shooting arm pain, no arm numbness/tingling, no low back pain, no shooting leg pain Integumentary: no rash, no pruritis, no redness, no sores, no wounds Neurological: no head injury, no paralysis, no weakness, no parathesias, no numbness, no tingling, no seizures, no syncope Psychiatric: no anxiety Endocrine: no cold intolerance, no heat intolerance Hematologic/Lymphatic: no easy bruising, no easy bleeding Allergic/Immunologic: no urticaria Physical Examination Vital Signs Temp Pulse Resp BP Pulse Ox 98.5 F 51 L 18 228/67 97 04/23/19 23:58 04/23/19 23:58 04/23/19 23:58 04/23/19 23:58 04/23/19 23:58 General appearance: no acute distress HEENT: Positive: PERRL, Normocephaly, Mucus Membranes Moist Neck: Positive: neck supple, trachea midline Cardiac: Positive: Reg Rate and Rhythm, S1/S2 Lungs: Positive: Decreased Breath Sounds Neuro: Positive: Grossly Intact Abdomen: Negative: Tender Skin: Negative: Rash Musculoskeletal: No Pain Extremities: Absent: edema Results 04/24/19 00:56 04/24/19 00:56 Coagulation 04/24/19 Range/Units 00:56 PT 13.2 (12.2-14.9) Sec. INR 1.01 (0.87-1.13) Lipids 04/24/19 Range/Units 03:20 Triglycerides 137 (2-149) mg/dL Cholesterol 233 H (50-199) mg/dL HDL Cholesterol 47 (40-59) mg/dL Cholesterol/HDL Ratio 4.95 % CBC 04/24/19 Range/Units 00:56 WBC 11.3 H (4.5-11.0) K/mm3 RBC 3.79 (3.65-5.03) M/mm3 Hgb 10.5 (10.1-14.3) gm/dl Hct 32.3 (30.3-42.9) % Plt Count 314 (140-440) K/mm3 Lymph # 0.7 L (1.2-5.4) K/mm3 Dane # 0.5 (0.0-0.8) K/mm3 Eos # 0.2 (0.0-0.4) K/mm3 Baso # 0.1 (0.0-0.1) K/mm3 Comprehensive Metabolic Panel 04/24/19 Range/Units 00:56 Sodium 139 (137-145) mmol/L Potassium 4.7 (3.6-5.0) mmol/L Chloride 111.0 H (98-107) mmol/L Carbon Dioxide 14 L (22-30) mmol/L BUN 65 H (7-17) mg/dL Creatinine 4.7 H (0.7-1.2) mg/dL Glucose 206 H (65-100) mg/dL Calcium 8.4 (8.4-10.2) mg/dL - Imaging and Cardiology Echo: report reviewed (03/2018 showed EF 50-55%, mod LVH, LA and RA mildly dilated, mild MR. ) Cardiac cath: report reviewed ( 12/2014 showed patent coronaries with mild LI in epicardial vessels, EF 40%. ) EKG: report reviewed, image reviewed EKG interpretations - Telemetry EKG Rhythm: Sinus Bradycardia - EKG Sinus rhythms and dysrhythmias: sinus rhythm Assessment and Plan Per nephrology, baseline creatinine appears to be around ~4; now 4.7, continue IV Lasix 40mg BID, no indications for renal replacement therapy acutely. CE elevation pattern appears c/w NSTEMI type II. ECG with NAF, pt denies chest pain. Cont to trend Caprice and f/u ECG in AM. F/u echo. Optimize anti-hypertensive regimen. D/c coreg in setting of chronic sinus bradycardia. Further recs to follow per hospital course. The patient has been seen in conjunction with Dr. Montero who agrees with the assessment and plan of care. - Patient Problems (1) Acute heart failure with preserved ejection fraction Current Visit: Yes Status: Acute (2) Acute kidney injury superimposed on CKD Current Visit: Yes Status: Acute (3) Hypertensive urgency Current Visit: Yes Status: Acute (4) NSTEMI (non-ST elevated myocardial infarction) Current Visit: Yes Status: Acute Plan to address problem: suspect type II (5) Diabetes mellitus Current Visit: Yes Status: Acute Qualifiers: Diabetes mellitus type: type 2 Diabetes mellitus complication status: with circulatory complication Diabetes mellitus complication detail: with other circulatory complications Qualified Code(s): E11.59 - Type 2 diabetes mellitus with other circulatory complications (6) History of CVA (cerebrovascular accident) Current Visit: Yes Status: Acute (7) Hyperlipidemia Current Visit: Yes Status: Chronic
[2019-04-24 12:19] LABS: Creatinine,Urine 74.8 mg/dL (0.1-20.0)
--- NOTE | 2019-04-24 13:01 | Event Note ---
Date: 04/24/19 Patient was seen and admitted today. Diagnoses of COPD stage III, hypertension, CVA with hemiparesis and right eye blindness, DM, heart failure with Preserved Ejection Fraction, elevated hepatic enzymes. We'll continue current management plan
[2019-04-24] MEDS: FUROSEMIDE 40 MG/4 ML INJ IV SCH (17:47)
[2019-04-25 06:29] LABS: Basophils # (Auto) 0.1 K/mm3 (0.0-0.1); Basophils % (Auto) 0.8 % (0.0-1.8); Eosinophils # (Auto) 0.2 K/mm3 (0.0-0.4); Eosinophils % (Auto) 2.9 % (0.0-4.3); Hematocrit 31.2 % (30.3-42.9); Lymphocytes # (Auto) 1.2 K/mm3 (1.2-5.4); Lymphocytes % (Auto) 17.2 % (13.4-35.0); Mean Corpuscular HGB Conc 32 % (30-34); Mean Corpuscular Volume 86 fl (79-97); Monocytes # (Auto) 0.6 K/mm3 (0.0-0.8); Monocytes % (Auto) 8.3 % (0.0-7.3); Platelet Count 318 K/mm3 (140-440); Red Blood Count 3.62 M/mm3 (3.65-5.03); Red Cell Distribution Width 14.8 % (13.2-15.2)
[2019-04-25] MEDS: FUROSEMIDE 40 MG/4 ML INJ IV SCH ×2 (06:47→19:55)
[2019-04-25 07:11] LABS: Calcium 8.3 mg/dL (8.4-10.2)
[2019-04-25] MEDS: INSULIN LISPRO 100 UNIT/ML SUB-Q SCH ×2 (09:20→13:38)
[2019-04-25] MEDS: HEPARIN 5,000 UNIT/1 ML VIAL SUB-Q SCH (09:23)
[2019-04-25] MEDS: CALCIUM ACETATE 667 MG CAP PO SCH ×3 (09:29→19:52)
[2019-04-25] MEDS: FERROUS SULFATE 325 MG TAB PO SCH (09:29)
[2019-04-25] MEDS: ASPIRIN EC 81 MG TAB PO SCH (09:29)
[2019-04-25] MEDS: glipiZIDE 10 MG TAB PO SCH ×2 (09:37→19:52)
[2019-04-25] MEDS: SODIUM BICARBONATE 650 MG TAB PO SCH ×2 (09:37→21:36)
[2019-04-25] MEDS: amLODIPine 10 MG TAB PO SCH (09:37)
[2019-04-25] MEDS: DOCUSATE SODIUM 100 MG CAP PO SCH ×2 (09:39→21:36)
[2019-04-25] MEDS: hydrALAZINE 100 MG TAB PO SCH ×3 (09:39→20:26)
--- NOTE | 2019-04-25 09:56 | Progress Note ---
Assessment and Plan 58-year-old -[place] female with history of CKD 3, CHF, diabetes type 2, CAD, CVA with right-sided residual deficits, and right eye blindness presents with dyspnea likely due to CHF. # KIZZY on CKD: baseline creatinine appears to be around ~4 (was 4.3 on last renal clinic visit in August 2018); 4.7 on admission likely in setting of cardio-renal physiology vs progression of CKD (creatinine stable at 4.8 today) - ok to continue IV Lasix 40mg BID (s/p Lasix 100mg IV x1 in ED) for now as she does have some volume on exam - avoid nephrotoxins, renally dose medications - urine studies reviewed - started sodium bicarbonate for acidosis in CKD - continue calcium acetate for secondary hyperparathyroidism/hyperphosphatemia - no indications for renal replacement therapy acutely # Anemia of CKD: hemoglobin at goal of CKD, no evidence of active bleeding. - no indication for NICOLE # Acute exacerbation of CHF with elevated BNP, tropinemia - agree with current diuresis plan - strict Is/Os - sodium restriction, water restriction discussed with patient - cardiology consulted, appreciate input # Hypertensive Urgency: BP on admission 228/67, now improved - continue current regimen, diuresis for now # DM2 # Leukocytosis Thank you for this consult; we will continue to follow for all renal-related issues. Subjective Date of service: 04/25/19 Principal diagnosis: dyspnea Interval history: no acute events noted overnight. patient without any new concerns this AM; notes breathing is better Objective - Exam Narrative Exam: General appearance: No apparent distress, alert and oriented 3, pleasant, obese, well-developed HEENT: right eye blind, hearing intact Neck: supple Respiratory: non-labored; breath sounds diminished in bases Cardiovascular: bradycardic; S1/S2 present Extremities: 1+ bilateral lower extremity pitting edema Peripheral Pulses: within normal limits Abdominal: obese, soft, non-tender, normal bowel sounds Skin: warm, dry, scattered healed bruising noted Musculoskeletal: able to move all extremities 4, right sided residual deficits related to CVA Neurological: CN II-XII grossly intact; alert and oriented x2 Psychiatric: cooperative, pleasant - Vital Signs Vital signs: Vital Signs - 12hr 04/24/19 04/24/19 04/24/19 22:20 22:25 23:09 Temperature 98.5 F Pulse Rate 49 L Pulse Rate [ 48 L Apical] Respiratory 18 18 Rate Blood Pressure 161/45 157/43 O2 Sat by Pulse 100 95 Oximetry 04/25/19 04/25/19 04:04 08:32 Temperature 98.5 F 98.3 F Pulse Rate 49 L 44 L Pulse Rate [ Apical] Respiratory 20 18 Rate Blood Pressure 172/51 171/49 O2 Sat by Pulse 98 95 Oximetry - Lab 04/25/19 06:03 04/25/19 06:03 Most recent lab results Calcium 8.3 mg/dL (8.4-10.2) L 04/25/19 06:03 Magnesium 1.80 mg/dL (1.7-2.3) 04/24/19 00:56 Urine Creatinine 74.8 mg/dL (0.1-20.0) H 04/24/19 10:25 Urine Sodium 81 mmol/L 04/24/19 10:25 Medications & Allergies - Medications Allergies/Adverse Reactions: Allergies No Known Allergies Allergy (Verified 10/02/13 23:34) Home Medications: Home Medications Medication Instructions Recorded Confirmed Last Taken Type Atorvastatin [Lipitor] 80 mg PO QAM 03/17/18 04/24/19 Unknown History Insulin Detemir (Nf) [Levemir 15 unit SQ BID 03/17/18 04/24/19 1 Day Ago History Flextouch (Nf)] ~04/23/19 glipiZIDE [Glipizide] 10 mg PO BID 03/17/18 04/24/19 Unknown History hydrALAZINE [Apresoline TAB] 100 mg PO TID #90 tab 03/20/18 04/24/19 Unknown Rx Amlodipine Besylate [Norvasc] 10 mg PO DAILY 04/24/19 04/24/19 Unknown History Aspirin [Adult Aspirin] 81 mg PO DAILY 04/24/19 04/24/19 Unknown History Atenolol [Tenormin] 50 mg PO DAILY 04/24/19 04/24/19 Unknown History Brimonidine Tartrate [Brimonidine 1 drop OU Q8HR 04/24/19 04/24/19 Unknown History Tartrate 0.2%] Calcium Acetate [Phoslo] 667 mg PO TID 04/24/19 04/24/19 Unknown History Ferrous Sulfate [Ferrous Sulfate 325 mg PO DAILY 04/24/19 04/24/19 Unknown History 324 MG] Furosemide [Lasix TAB] 40 mg PO DAILY 04/24/19 04/24/19 Unknown History Active Medications: Generic Name Dose Route Start Last Admin Trade Name Freq PRN Reason Stop Dose Admin Acetaminophen 650 mg 04/24/19 02:36 Tylenol PO Q4H PRN Pain MILD(1-3)/Fever >100.5/COLVIN Albuterol 2.5 mg 04/24/19 02:36 Proventil IH Q3HRT PRN Shortness Of Breath Amlodipine Besylate 10 mg 04/24/19 10:00 04/24/19 09:24 Amlodipine PO 10 mg DAILY [facility] Administration Aspirin 81 mg 04/24/19 10:00 04/24/19 09:24 Halfprin Ec PO 81 mg DAILY [facility] Administration Atorvastatin Calcium 80 mg 04/24/19 10:00 04/24/19 09:23 Lipitor PO 80 mg QAM [facility] Administration Calcium Acetate 667 mg 04/24/19 08:00 04/24/19 17:47 Phoslo PO Not Given TIDWM [facility] Dextrose 50 ml 04/24/19 02:36 D50w (25gm) Syringe IV Q30MIN PRN Hypoglycemia Protocol Docusate Sodium 100 mg 04/24/19 10:00 04/24/19 22:24 Colace PO Not Given BID [facility] Ferrous Sulfate 325 mg 04/24/19 10:00 04/24/19 09:24 Feosol PO 325 mg DAILY [facility] Administration Furosemide 40 mg 04/24/19 18:00 04/25/19 06:47 Lasix IV 40 mg BID@0600,1800 [facility] Administration Glipizide 10 mg 04/24/19 08:00 04/24/19 17:03 Glucotrol PO Not Given BIDDIAB [facility] Heparin Sodium (Porcine) 5,000 unit 04/24/19 10:00 04/24/19 22:24 Heparin SUB-Q Not Given Q12HR [facility] Hydralazine HCl 10 mg 04/24/19 02:45 Apresoline IV Q4HR PRN Blood Pressure Hydralazine HCl 100 mg 04/24/19 08:00 04/24/19 20:37 Apresoline PO 100 mg TID [facility] Administration Insulin Human Lispro 0 unit 04/24/19 07:30 04/24/19 22:24 Humalog SUB-Q Not Given ACHS [facility] Protocol Miscellaneous Medication 1 drop 04/24/19 06:00 Brimonidine Tartrate [Brimonidine Tartrate 0.2%] OU Q8HR [facility] Ondansetron HCl 4 mg 04/24/19 02:36 Zofran IV Q6H PRN Nausea And Vomiting Oxycodone/Acetaminophen 1 tab 04/24/19 02:39 Percocet 5/325 PO Q6H PRN Pain, Moderate (4-6) Sodium Bicarbonate 650 mg 04/25/19 10:00 Sodium Bicarbonate PO BID [facility] Sodium Chloride 10 ml 04/24/19 10:00 04/24/19 22:24 Sodium Chloride Flush Syringe 10 Ml IV 10 ml BID [facility] Administration Sodium Chloride 10 ml 04/24/19 02:36 Sodium Chloride Flush Syringe 10 Ml IV PRN PRN LINE FLUSH
--- NOTE | 2019-04-25 10:04 | Progress Note ---
Assessment and Plan TTE reviewed. Cont present cardiac management, including diuresis per nephrology. Cont to monitor on telemetry. Check thyroid profile in setting of bradycardia. Further recs to follow per hospital course. The patient has been seen in conjunction with Dr. Montero who agrees with the assessment and plan of care. - Patient Problems (1) Acute heart failure with preserved ejection fraction Current Visit: Yes Status: Acute (2) Acute kidney injury superimposed on CKD Current Visit: Yes Status: Acute (3) Hypertensive urgency Current Visit: Yes Status: Acute (4) NSTEMI (non-ST elevated myocardial infarction) Current Visit: Yes Status: Acute Plan to address problem: suspect type II (5) Diabetes mellitus Current Visit: Yes Status: Acute Qualifiers: Diabetes mellitus type: type 2 Diabetes mellitus complication status: with circulatory complication Diabetes mellitus complication detail: with other circulatory complications Qualified Code(s): E11.59 - Type 2 diabetes mellitus with other circulatory complications (6) History of CVA (cerebrovascular accident) Current Visit: Yes Status: Acute (7) Hyperlipidemia Current Visit: Yes Status: Chronic (8) History of loop recorder Current Visit: Yes Status: Chronic (9) Sinus bradycardia Current Visit: Yes Status: Chronic Subjective Date of service: 04/25/19 Principal diagnosis: dyspnea Interval history: pt resting in bed, states she is feeling better today. in sinus bradycardia on telemetry, HR low 43bpm overnight, no pauses. pt asymptomatic. Objective Last Vital Signs Temp 98.3 F 04/25/19 08:32 Pulse 44 L 04/25/19 08:32 Resp 18 04/25/19 08:32 BP 171/49 04/25/19 08:32 Pulse Ox 95 04/25/19 08:32 - Physical Examination General: No Apparent Distress HEENT: Positive: PERRL, Normocephaly, Mucus Membranes Moist Neck: Positive: neck supple, trachea midline Cardiac: Positive: Regular Rhythm, S1/S2 Lungs: Positive: Decreased Breath Sounds Neuro: Positive: Grossly Intact Abdomen: Negative: Tender Skin: Negative: Rash Musculoskeletal: No Pain Extremities: Absent: edema - Labs and Meds CBC 04/25/19 Range/Units 06:03 WBC 6.8 (4.5-11.0) K/mm3 RBC 3.62 L (3.65-5.03) M/mm3 Hgb 10.0 L (10.1-14.3) gm/dl Hct 31.2 (30.3-42.9) % Plt Count 318 (140-440) K/mm3 Lymph # 1.2 (1.2-5.4) K/mm3 [facility] # 0.6 (0.0-0.8) K/mm3 Eos # 0.2 (0.0-0.4) K/mm3 Baso # 0.1 (0.0-0.1) K/mm3 Comprehensive Metabolic Panel 04/25/19 Range/Units 06:03 Sodium 143 (137-145) mmol/L Potassium 4.5 (3.6-5.0) mmol/L Chloride 114.4 H (98-107) mmol/L Carbon Dioxide 17 L (22-30) mmol/L BUN 65 H (7-17) mg/dL Creatinine 4.8 H (0.7-1.2) mg/dL Glucose 135 H (65-100) mg/dL Calcium 8.3 L (8.4-10.2) mg/dL - Imaging and Cardiology EKG: report reviewed, image reviewed Echo: report reviewed (03/2018 showed EF 50-55%, mod LVH, LA and RA mildly dilated, mild MR. ) Cardiac cath: report reviewed ( 12/2014 showed patent coronaries with mild LI in epicardial vessels, EF 40%. ) - EKG Sinus rhythms and dysrhythmias: sinus rhythm
--- NOTE | 2019-04-25 11:00 | Progress Note ---
Assessment and Plan Assessment and plan: 58-year-old woman who typically follows at [facility] who comes to the hospital complaining of shortness of breath Past medical history includes stroke with right-sided deficits, right-sided ocular blindness, CHF, hypertension, renal disease. Vital signs reviewed heart rates in the 40s and 50s, blood pressure elevated at 171/49 Labs reviewed troponin elevated max 0.127, BNP 15,000, LDL 175, creatinine 4.8 which appears to be slightly elevated from her normal baseline of 4.3. Chest x-ray revealed pulmonary edema Acute exacerbation of diastolic CHF With BNP 15,000, echo shows preserved EF consistent with diastolic CHF -Continue diuretics, cardiology input appreciated Elevated troponin Denies chest pain, most likely type II [place], being managed by cardiology Hypertensive urgency Optimize BP medications Acute on chronic kidney disease Nephrology consult, give Lasix judiciously Type 2 diabetes Sliding scale insulin Leukocytosis, likely due to stress, has now resolved DVT prophylaxis with Lovenox, renally dosed History Interval history: Review of systems Constitutional: No fevers, no malaise, no joint pains CVS: No chest pain, continues to complain of shortness of breath and dyspnea on exertion GI: No abdominal pain, no diarrhea, no vomiting, no constipation Respiratory: no wheezing, no coughing Hospitalist Physical - Physical exam Narrative exam: General.: Appears well, no distress, nontoxic HEENT: Moist mucous membranes, extraocular muscles intact, no lymphadenopathy Neck: supple Cardiac: S1-S2 heard Lungs: Crackles Abdomen: soft , nontender, nondistended, bowel sounds positive Extremities: no edema clubbing or cyanosis Skin: no rash or lesions Neurologic: no gross focal deficits Psych: calm, and cooperative - Constitutional Vitals: Temp Pulse Resp BP Pulse Ox 98.3 F 51 L 18 171/49 95 04/25/19 08:32 04/25/19 09:37 04/25/19 08:32 04/25/19 08:32 04/25/19 08:32 General appearance: Present: no acute distress Results - Labs CBC & Chem 7: 04/25/19 06:03 04/25/19 06:03 Labs: Laboratory Last Values WBC 6.8 K/mm3 (4.5-11.0) 04/25/19 06:03 RBC 3.62 M/mm3 (3.65-5.03) L 04/25/19 06:03 Hgb 10.0 gm/dl (10.1-14.3) L 04/25/19 06:03 Hct 31.2 % (30.3-42.9) 04/25/19 06:03 MCV 86 fl (79-97) 04/25/19 06:03 MCH 28 pg (28-32) 04/25/19 06:03 MCHC 32 % (30-34) 04/25/19 06:03 RDW 14.8 % (13.2-15.2) 04/25/19 06:03 Plt Count 318 K/mm3 (140-440) 04/25/19 06:03 Lymph % (Auto) 17.2 % (13.4-35.0) 04/25/19 06:03 [place] % (Auto) 8.3 % (0.0-7.3) H 04/25/19 06:03 Eos % (Auto) 2.9 % (0.0-4.3) 04/25/19 06:03 Baso % (Auto) 0.8 % (0.0-1.8) 04/25/19 06:03 Lymph # 1.2 K/mm3 (1.2-5.4) 04/25/19 06:03 [place] # 0.6 K/mm3 (0.0-0.8) 04/25/19 06:03 Eos # 0.2 K/mm3 (0.0-0.4) 04/25/19 06:03 Baso # 0.1 K/mm3 (0.0-0.1) 04/25/19 06:03 Seg Neutrophils % 70.8 % (40.0-70.0) H 04/25/19 06:03 Seg Neutrophils # 4.8 K/mm3 (1.8-7.7) 04/25/19 06:03 PT 13.2 Sec. (12.2-14.9) 04/24/19 00:56 INR 1.01 (0.87-1.13) 04/24/19 00:56 Sodium 143 mmol/L (137-145) 04/25/19 06:03 Potassium 4.5 mmol/L (3.6-5.0) 04/25/19 06:03 Chloride 114.4 mmol/L (98-107) H 04/25/19 06:03 Carbon Dioxide 17 mmol/L (22-30) L 04/25/19 06:03 Anion Gap 16 mmol/L 04/25/19 06:03 BUN 65 mg/dL (7-17) H 04/25/19 06:03 Creatinine 4.8 mg/dL (0.7-1.2) H 04/25/19 06:03 Estimated GFR 11 ml/min 04/25/19 06:03 BUN/Creatinine Ratio 14 % 04/25/19 06:03 Glucose 135 mg/dL (65-100) H 04/25/19 06:03 POC Glucose 306 (70-105) H 04/25/19 08:39 Hemoglobin A1c 5.1 % (4-6) 04/24/19 00:56 Calcium 8.3 mg/dL (8.4-10.2) L 04/25/19 06:03 Magnesium 1.80 mg/dL (1.7-2.3) 04/24/19 00:56 Total Creatine Kinase 396 units/L (30-135) H 04/24/19 00:56 Troponin T 0.127 ng/mL (0.00-0.029) H* D 04/25/19 06:03 NT-Pro-B Natriuret Pep 48350 pg/mL (0-900) H 04/24/19 00:56 Triglycerides 137 mg/dL (2-149) 04/24/19 03:20 Cholesterol 233 mg/dL (50-199) H 04/24/19 03:20 LDL Cholesterol Direct 175 mg/dL (50-130) H 04/24/19 03:20 HDL Cholesterol 47 mg/dL (40-59) 04/24/19 03:20 Cholesterol/HDL Ratio 4.95 % 04/24/19 03:20 Urine Color Straw (Yellow) 04/24/19 10:25 Urine Turbidity Clear (Clear) 04/24/19 10:25 Urine pH 5.0 (5.0-7.0) 04/24/19 10:25 Ur Specific [place] 1.013 (1.003-1.030) 04/24/19 10:25 Urine Protein >2000 mg dl mg/dL (Negative) 04/24/19 10:25 Urine Glucose (UA) 150 mg/dL (Negative) 04/24/19 10:25 Urine Ketones Neg mg/dL (Negative) 04/24/19 10:25 Urine Blood Neg (Negative) 04/24/19 10:25 Urine Nitrite Neg (Negative) 04/24/19 10:25 Urine Bilirubin Neg (Negative) 04/24/19 10:25 Urine Urobilinogen < 2.0 mg/dL (<2.0) 04/24/19 10:25 Ur Leukocyte Esterase Neg (Negative) 04/24/19 10:25 Urine WBC (Auto) 3.0 /HPF (0.0-6.0) 04/24/19 10:25 Urine RBC (Auto) 3.0 /HPF (0.0-6.0) 04/24/19 10:25 U Epithel Cells (Auto) < 1.0 /HPF (0-13.0) 04/24/19 10:25 Urine Bacteria (Auto) 1+ /HPF (Negative) 04/24/19 10:25 Urine Mucus Few /HPF 04/24/19 10:25 Urine Creatinine 74.8 mg/dL (0.1-20.0) H 04/24/19 10:25 Urine Sodium 81 mmol/L 04/24/19 10:25 Urine Urea Nitrogen 524 04/24/19 10:25 Active Medications - Current Medications Current Medications: Generic Name Dose Route Start Last Admin Trade Name Freq PRN Reason Stop Dose Admin Acetaminophen 650 mg 04/24/19 02:36 Tylenol PO Q4H PRN Pain MILD(1-3)/Fever >100.5/COLVIN Albuterol 2.5 mg 04/24/19 02:36 Proventil IH Q3HRT PRN Shortness Of Breath Amlodipine Besylate 10 mg 04/24/19 10:00 04/25/19 09:37 Amlodipine PO 10 mg DAILY [facility]QUE Administration Aspirin 81 mg 04/24/19 10:00 04/25/19 09:29 Halfprin Ec PO 81 mg DAILY [facility]QUE Administration Atorvastatin Calcium 80 mg 04/24/19 10:00 04/25/19 09:38 Lipitor PO 80 mg QAM [facility]IQUE Administration Calcium Acetate 667 mg 04/24/19 08:00 04/25/19 09:29 Phoslo PO 667 mg TIDWM [facility]IQUE Administration Dextrose 50 ml 04/24/19 02:36 D50w (25gm) Syringe IV Q30MIN PRN Hypoglycemia Protocol Docusate Sodium 100 mg 04/24/19 10:00 04/25/19 09:39 Colace PO 100 mg BID [facility]IQUE Administration Ferrous Sulfate 325 mg 04/24/19 10:00 04/25/19 09:29 Feosol PO 325 mg DAILY [facility]QUE Administration Furosemide 40 mg 04/24/19 18:00 04/25/19 06:47 Lasix IV 40 mg BID@0600,1800 [facility] Administration Glipizide 10 mg 04/24/19 08:00 04/25/19 09:37 Glucotrol PO 10 mg BIDDIAB [facility]IQUE Administration Heparin Sodium (Porcine) 5,000 unit 04/24/19 10:00 04/25/19 09:23 Heparin SUB-Q 5,000 unit Q12HR [facility]QUE Administration Hydralazine HCl 10 mg 04/24/19 02:45 Apresoline IV Q4HR PRN Blood Pressure Hydralazine HCl 100 mg 04/24/19 08:00 04/25/19 09:39 Apresoline PO 100 mg TID [facility]QUE Administration Insulin Human Lispro 0 unit 04/24/19 07:30 04/25/19 09:20 Humalog SUB-Q 6 unit ACHS [facility] Administration Protocol Miscellaneous Medication 1 drop 04/24/19 06:00 Brimonidine Tartrate [Brimonidine Tartrate 0.2%] OU Q8HR [facility] Ondansetron HCl 4 mg 04/24/19 02:36 Zofran IV Q6H PRN Nausea And Vomiting Oxycodone/Acetaminophen 1 tab 04/24/19 02:39 Percocet 5/325 PO Q6H PRN Pain, Moderate (4-6) Sodium Bicarbonate 650 mg 04/25/19 10:00 04/25/19 09:37 Sodium Bicarbonate PO 650 mg BID [facility]QUE Administration Sodium Chloride 10 ml 04/24/19 10:00 04/25/19 09:49 Sodium Chloride Flush Syringe 10 Ml IV 10 ml BID [facility] Administration Sodium Chloride 10 ml 04/24/19 02:36 Sodium Chloride Flush Syringe 10 Ml IV PRN PRN LINE FLUSH
[2019-04-26] MEDS: FUROSEMIDE 40 MG/4 ML INJ IV SCH ×2 (05:00→17:36)
[2019-04-26] MEDS: hydrALAZINE 20 MG/1 ML INJ IV PRN ×2 (05:01→23:58)
[2019-04-26] MEDS: glipiZIDE 10 MG TAB PO SCH (08:00)
[2019-04-26] MEDS: hydrALAZINE 100 MG TAB PO SCH ×3 (08:30→21:37)
[2019-04-26] MEDS: SODIUM BICARBONATE 650 MG TAB PO SCH ×2 (09:37→21:37)
[2019-04-26] MEDS: DOCUSATE SODIUM 100 MG CAP PO SCH ×2 (09:38→21:37)
[2019-04-26] MEDS: ASPIRIN EC 81 MG TAB PO SCH (09:38)
[2019-04-26] MEDS: FERROUS SULFATE 325 MG TAB PO SCH (09:38)
[2019-04-26] MEDS: CALCIUM ACETATE 667 MG CAP PO SCH ×3 (09:38→17:35)
[2019-04-26] MEDS: ENOXAPARIN 30 MG/0.3 ML INJ SUB-Q SCH (09:38)
[2019-04-26] MEDS: amLODIPine 10 MG TAB PO SCH (09:39)
[2019-04-26] MEDS: INSULIN LISPRO 100 UNIT/ML SUB-Q SCH ×3 (09:40→17:14)
--- NOTE | 2019-04-26 10:22 | Progress Note ---
Assessment and Plan Pt is noted to have loop recorder in situ. Per her daughter at bedside, this was implanted in 10/2018 at [place] and pt is regularly followed by [place] cardiology. Optimize anti-hypertensive regimen - initiate Imdur. Pt appears to be clinically improving. F/u BMP pending. Await nephrology recs. The patient has been seen in conjunction with Dr. Montero who agrees with the assessment and plan of care. - Patient Problems (1) Acute heart failure with preserved ejection fraction Current Visit: Yes Status: Acute (2) Acute kidney injury superimposed on CKD Current Visit: Yes Status: Acute (3) Hypertensive urgency Current Visit: Yes Status: Acute (4) NSTEMI (non-ST elevated myocardial infarction) Current Visit: Yes Status: Acute (5) Diabetes mellitus Current Visit: Yes Status: Acute Qualifiers: Diabetes mellitus type: type 2 Diabetes mellitus complication status: with circulatory complication Diabetes mellitus complication detail: with other circulatory complications Qualified Code(s): E11.59 - Type 2 diabetes mellitus with other circulatory complications (6) History of CVA (cerebrovascular accident) Current Visit: Yes Status: Acute (7) Hyperlipidemia Current Visit: Yes Status: Chronic (8) History of loop recorder Current Visit: Yes Status: Chronic (9) Sinus bradycardia Current Visit: Yes Status: Chronic Subjective Date of service: 04/26/19 Principal diagnosis: dyspnea Interval history: pt resting in bed, states she is feeling better today. in sinus bradycardia on telemetry, HR 40s, no pauses. pt asymptomatic. daughter at bedside. Objective Last Vital Signs Temp 97.7 F 04/26/19 08:21 Pulse 60 04/26/19 09:39 Resp 18 04/26/19 08:21 BP 159/61 04/26/19 09:39 Pulse Ox 96 04/26/19 09:37 - Physical Examination General: No Apparent Distress HEENT: Positive: PERRL, Normocephaly, Mucus Membranes Moist Neck: Positive: neck supple, trachea midline Cardiac: Positive: Regular Rhythm, S1/S2 Lungs: Positive: Decreased Breath Sounds Neuro: Positive: Grossly Intact Abdomen: Negative: Tender Skin: Negative: Rash Musculoskeletal: No Pain Extremities: Absent: edema - Imaging and Cardiology EKG: report reviewed, image reviewed Echo: report reviewed (03/2018 showed EF 50-55%, mod LVH, LA and RA mildly dilated, mild MR. ) Cardiac cath: report reviewed ( 12/2014 showed patent coronaries with mild LI in epicardial vessels, EF 40%. ) - EKG Sinus rhythms and dysrhythmias: sinus rhythm
--- NOTE | 2019-04-26 11:16 | Progress Note ---
Assessment and Plan Assessment and plan: 58-year-old woman who typically follows at [facility] who comes to the hospital complaining of shortness of breath Past medical history includes stroke with right-sided deficits, right-sided ocular blindness, CHF, hypertension, renal disease. Vital signs reviewed heart rates in the 40s and 50s, blood pressure elevated at 171/49 Labs reviewed troponin elevated max 0.127, BNP 15,000, LDL 175, creatinine 4.8 which appears to be slightly elevated from her normal baseline of 4.3. Chest x-ray revealed pulmonary edema Acute exacerbation of diastolic CHF With BNP 15,000, echo shows preserved EF consistent with diastolic CHF -Continue diuretics, cardiology input appreciated, optimize meds. Elevated troponin Denies chest pain, most likely type II [place], being managed by cardiology Hypertensive urgency Optimize BP medications, Imdur added on 04/26 Acute on chronic kidney disease Nephrology consult, give Lasix judiciously Type 2 diabetes, has been hypoglycemic Sliding scale insulin -Highly doubt that patient is compliant with glipizide at home as she is hypoglycemic on it. Discontinue glipizide on 04/26 Leukocytosis, likely due to stress, has now resolved DVT prophylaxis with Lovenox, renally dosed History Interval history: Review of systems Constitutional: No fevers, no malaise, no joint pains CVS: No chest pain, continues to complain of shortness of breath and dyspnea on exertion GI: No abdominal pain, no diarrhea, no vomiting, no constipation Respiratory: no wheezing, no coughing Hospitalist Physical - Physical exam Narrative exam: General.: Appears well, no distress, nontoxic HEENT: Moist mucous membranes, extraocular muscles intact, no lymphadenopathy Neck: supple Cardiac: S1-S2 heard Lungs: Crackles Abdomen: soft , nontender, nondistended, bowel sounds positive Extremities: no edema clubbing or cyanosis Skin: no rash or lesions Neurologic: no gross focal deficits Psych: calm, and cooperative - Constitutional Vitals: Temp Pulse Resp BP Pulse Ox 97.7 F 60 18 159/61 96 04/26/19 08:21 04/26/19 09:39 04/26/19 08:21 04/26/19 09:39 04/26/19 09:37 General appearance: Present: no acute distress Results - Labs CBC & Chem 7: 04/25/19 06:03 04/25/19 06:03 Labs: Laboratory Last Values WBC 6.8 K/mm3 (4.5-11.0) 04/25/19 06:03 RBC 3.62 M/mm3 (3.65-5.03) L 04/25/19 06:03 Hgb 10.0 gm/dl (10.1-14.3) L 04/25/19 06:03 Hct 31.2 % (30.3-42.9) 04/25/19 06:03 MCV 86 fl (79-97) 04/25/19 06:03 MCH 28 pg (28-32) 04/25/19 06:03 MCHC 32 % (30-34) 04/25/19 06:03 RDW 14.8 % (13.2-15.2) 04/25/19 06:03 Plt Count 318 K/mm3 (140-440) 04/25/19 06:03 Lymph % (Auto) 17.2 % (13.4-35.0) 04/25/19 06:03 [place] % (Auto) 8.3 % (0.0-7.3) H 04/25/19 06:03 Eos % (Auto) 2.9 % (0.0-4.3) 04/25/19 06:03 Baso % (Auto) 0.8 % (0.0-1.8) 04/25/19 06:03 Lymph # 1.2 K/mm3 (1.2-5.4) 04/25/19 06:03 [place] # 0.6 K/mm3 (0.0-0.8) 04/25/19 06:03 Eos # 0.2 K/mm3 (0.0-0.4) 04/25/19 06:03 Baso # 0.1 K/mm3 (0.0-0.1) 04/25/19 06:03 Seg Neutrophils % 70.8 % (40.0-70.0) H 04/25/19 06:03 Seg Neutrophils # 4.8 K/mm3 (1.8-7.7) 04/25/19 06:03 PT 13.2 Sec. (12.2-14.9) 04/24/19 00:56 INR 1.01 (0.87-1.13) 04/24/19 00:56 Sodium 143 mmol/L (137-145) 04/25/19 06:03 Potassium 4.5 mmol/L (3.6-5.0) 04/25/19 06:03 Chloride 114.4 mmol/L (98-107) H 04/25/19 06:03 Carbon Dioxide 17 mmol/L (22-30) L 04/25/19 06:03 Anion Gap 16 mmol/L 04/25/19 06:03 BUN 65 mg/dL (7-17) H 04/25/19 06:03 Creatinine 4.8 mg/dL (0.7-1.2) H 04/25/19 06:03 Estimated GFR 11 ml/min 04/25/19 06:03 BUN/Creatinine Ratio 14 % 04/25/19 06:03 Glucose 135 mg/dL (65-100) H 04/25/19 06:03 POC Glucose 66 (70-105) L 04/26/19 08:39 Hemoglobin A1c 5.1 % (4-6) 04/24/19 00:56 Calcium 8.3 mg/dL (8.4-10.2) L 04/25/19 06:03 Magnesium 1.80 mg/dL (1.7-2.3) 04/24/19 00:56 Total Creatine Kinase 396 units/L (30-135) H 04/24/19 00:56 Troponin T 0.127 ng/mL (0.00-0.029) H* D 04/25/19 06:03 NT-Pro-B Natriuret Pep 48136 pg/mL (0-900) H 04/24/19 00:56 Triglycerides 137 mg/dL (2-149) 04/24/19 03:20 Cholesterol 233 mg/dL (50-199) H 04/24/19 03:20 LDL Cholesterol Direct 175 mg/dL (50-130) H 04/24/19 03:20 HDL Cholesterol 47 mg/dL (40-59) 04/24/19 03:20 Cholesterol/HDL Ratio 4.95 % 04/24/19 03:20 TSH 1.680 mlU/mL (0.270-4.200) 04/25/19 10:40 Free T4 0.97 ng/dL (0.76-1.46) 04/25/19 10:40 Thyroxine (T4) 5.8 ug/dL (4.0-12.0) 04/25/19 10:40 Urine Color Straw (Yellow) 04/24/19 10:25 Urine Turbidity Clear (Clear) 04/24/19 10:25 Urine pH 5.0 (5.0-7.0) 04/24/19 10:25 Ur Specific [place] 1.013 (1.003-1.030) 04/24/19 10:25 Urine Protein >2000 mg dl mg/dL (Negative) 04/24/19 10:25 Urine Glucose (UA) 150 mg/dL (Negative) 04/24/19 10:25 Urine Ketones Neg mg/dL (Negative) 04/24/19 10:25 Urine Blood Neg (Negative) 04/24/19 10:25 Urine Nitrite Neg (Negative) 04/24/19 10:25 Urine Bilirubin Neg (Negative) 04/24/19 10:25 Urine Urobilinogen < 2.0 mg/dL (<2.0) 04/24/19 10:25 Ur Leukocyte Esterase Neg (Negative) 04/24/19 10:25 Urine WBC (Auto) 3.0 /HPF (0.0-6.0) 04/24/19 10:25 Urine RBC (Auto) 3.0 /HPF (0.0-6.0) 04/24/19 10:25 U Epithel Cells (Auto) < 1.0 /HPF (0-13.0) 04/24/19 10:25 Urine Bacteria (Auto) 1+ /HPF (Negative) 04/24/19 10:25 Urine Mucus Few /HPF 04/24/19 10:25 Urine Creatinine 74.8 mg/dL (0.1-20.0) H 04/24/19 10:25 Urine Sodium 81 mmol/L 04/24/19 10:25 Urine Urea Nitrogen 524 04/24/19 10:25 Active Medications - Current Medications Current Medications: Generic Name Dose Route Start Last Admin Trade Name Freq PRN Reason Stop Dose Admin Acetaminophen 650 mg 04/24/19 02:36 Tylenol PO Q4H PRN Pain MILD(1-3)/Fever >100.5/COLVIN Albuterol 2.5 mg 04/24/19 02:36 Proventil IH Q3HRT PRN Shortness Of Breath Amlodipine Besylate 10 mg 04/24/19 10:00 04/26/19 09:39 Amlodipine PO 10 mg DAILY [facility] Administration Aspirin 81 mg 04/24/19 10:00 04/26/19 09:38 Halfprin Ec PO 81 mg DAILY [facility] Administration Atorvastatin Calcium 80 mg 04/24/19 10:00 04/26/19 09:38 Lipitor PO 80 mg QAM MONIQUE Administration Calcium Acetate 667 mg 04/24/19 08:00 04/26/19 09:38 Phoslo PO 667 mg TIDWM [facility] Administration Dextrose 50 ml 04/24/19 02:36 D50w (25gm) Syringe IV Q30MIN PRN Hypoglycemia Protocol Docusate Sodium 100 mg 04/24/19 10:00 04/26/19 09:38 Colace PO 100 mg BID [facility] Administration Enoxaparin Sodium 30 mg 04/26/19 10:00 04/26/19 09:38 Enoxaparin SUB-Q 30 mg QDAY [facility] Administration Ferrous Sulfate 325 mg 04/24/19 10:00 04/26/19 09:38 Feosol PO 325 mg DAILY [facility] Administration Furosemide 40 mg 04/24/19 18:00 04/26/19 05:00 Lasix IV 40 mg BID@0600,1800 [facility] Administration Hydralazine HCl 10 mg 04/24/19 02:45 04/26/19 05:01 Apresoline IV 10 mg Q4HR PRN Administration Blood Pressure Hydralazine HCl 100 mg 04/24/19 08:00 04/26/19 08:30 Apresoline PO 100 mg TID [facility] Administration Insulin Human Lispro 0 unit 04/26/19 07:30 04/26/19 09:40 Humalog SUB-Q Not Given AC [facility] Protocol Isosorbide Mononitrate 30 mg 04/26/19 11:00 Imdur PO QDAY [facility] Miscellaneous Medication 1 drop 04/24/19 06:00 Brimonidine Tartrate [Brimonidine Tartrate 0.2%] OU Q8HR [facility] Ondansetron HCl 4 mg 04/24/19 02:36 Zofran IV Q6H PRN Nausea And Vomiting Oxycodone/Acetaminophen 1 tab 04/24/19 02:39 Percocet 5/325 PO Q6H PRN Pain, Moderate (4-6) Sodium Bicarbonate 650 mg 04/25/19 10:00 04/26/19 09:37 Sodium Bicarbonate PO 650 mg BID [facility] Administration Sodium Chloride 10 ml 04/24/19 10:00 04/26/19 09:40 Sodium Chloride Flush Syringe 10 Ml IV 10 ml BID [facility]QUE Administration Sodium Chloride 10 ml 04/24/19 02:36 Sodium Chloride Flush Syringe 10 Ml IV PRN PRN LINE FLUSH
--- NOTE | 2019-04-26 15:25 | Progress Note ---
Assessment and Plan 58-year-old -Turkmen female with history of CKD 3, CHF, diabetes type 2, CAD, CVA with right-sided residual deficits, and right eye blindness presents with dyspnea likely due to CHF. # KIZZY on CKD: baseline creatinine appears to be around ~4 (was 4.3 on last renal clinic visit in August 2018); 4.7 on admission likely in setting of cardio-renal physiology vs progression of CKD (creatinine was stable at 4.8 yesterday) - ok to continue IV Lasix 40mg BID (s/p Lasix 100mg IV x1 in ED) for now as she does have some volume on exam - daily renal function panel check, pending today - avoid nephrotoxins, renally dose medications - urine studies reviewed - continue sodium bicarbonate for acidosis in CKD - continue calcium acetate for secondary hyperparathyroidism/hyperphosphatemia - no indications for renal replacement therapy acutely # Anemia of CKD: hemoglobin at goal of CKD, no evidence of active bleeding. - no indication for NICOLE # Acute exacerbation of CHF with elevated BNP, tropinemia - agree with current diuresis plan - strict Is/Os - sodium restriction, water restriction discussed with patient - cardiology consulted, appreciate input # Hypertensive Urgency: BP on admission 228/67, now improved - continue current regimen, diuresis for now # DM2 # Leukocytosis Thank you for this consult; we will continue to follow for all renal-related issues. Subjective Date of service: 04/26/19 Principal diagnosis: dyspnea Interval history: no acute events noted overnight. patient without any new concerns this AM; notes breathing is better. Discussed with family at bedside Objective - Exam Narrative Exam: General appearance: No apparent distress, alert and oriented 3, pleasant, obese, well-developed HEENT: right eye blind, hearing intact Neck: supple Respiratory: non-labored; clear breath sounds Cardiovascular: bradycardic; S1/S2 present Extremities: trace bilateral lower extremity pitting edema Peripheral Pulses: within normal limits Abdominal: obese, soft, non-tender, normal bowel sounds Skin: warm, dry, scattered healed bruising noted Musculoskeletal: able to move all extremities 4, right sided residual deficits related to CVA Neurological: CN II-XII grossly intact; alert and oriented x2 Psychiatric: cooperative, pleasant - Vital Signs Vital signs: Vital Signs - 12hr 04/26/19 04/26/19 04/26/19 03:54 08:21 09:37 Temperature 98.0 F 97.7 F Pulse Rate 45 L 48 L 50 L Respiratory 18 18 Rate Blood Pressure 169/60 167/43 160/60 O2 Sat by Pulse 94 96 96 Oximetry 04/26/19 09:39 Temperature Pulse Rate 60 Respiratory Rate Blood Pressure 159/61 O2 Sat by Pulse Oximetry - Lab 04/25/19 06:03 04/25/19 06:03 Most recent lab results Calcium 8.3 mg/dL (8.4-10.2) L 04/25/19 06:03 Magnesium 1.80 mg/dL (1.7-2.3) 04/24/19 00:56 Urine Creatinine 74.8 mg/dL (0.1-20.0) H 04/24/19 10:25 Urine Sodium 81 mmol/L 04/24/19 10:25 Medications & Allergies - Medications Allergies/Adverse Reactions: Allergies No Known Allergies Allergy (Verified 10/02/13 23:34) Home Medications: Home Medications Medication Instructions Recorded Confirmed Last Taken Type Atorvastatin [Lipitor] 80 mg PO QAM 03/17/18 04/24/19 Unknown History Insulin Detemir (Nf) [Levemir 15 unit SQ BID 03/17/18 04/24/19 1 Day Ago History Flextouch (Nf)] ~04/23/19 glipiZIDE [Glipizide] 10 mg PO BID 03/17/18 04/24/19 Unknown History hydrALAZINE [Apresoline TAB] 100 mg PO TID #90 tab 03/20/18 04/24/19 Unknown Rx Amlodipine Besylate [Norvasc] 10 mg PO DAILY 04/24/19 04/24/19 Unknown History Aspirin [Adult Aspirin] 81 mg PO DAILY 04/24/19 04/24/19 Unknown History Atenolol [Tenormin] 50 mg PO DAILY 04/24/19 04/24/19 Unknown History Brimonidine Tartrate [Brimonidine 1 drop OU Q8HR 04/24/19 04/24/19 Unknown History Tartrate 0.2%] Calcium Acetate [Phoslo] 667 mg PO TID 04/24/19 04/24/19 Unknown History Ferrous Sulfate [Ferrous Sulfate 325 mg PO DAILY 04/24/19 04/24/19 Unknown History 324 MG] Furosemide [Lasix TAB] 40 mg PO DAILY 04/24/19 04/24/19 Unknown History Active Medications: Generic Name Dose Route Start Last Admin Trade Name Freq PRN Reason Stop Dose Admin Acetaminophen 650 mg 04/24/19 02:36 Tylenol PO Q4H PRN Pain MILD(1-3)/Fever >100.5/COLVIN Albuterol 2.5 mg 04/24/19 02:36 Proventil IH Q3HRT PRN Shortness Of Breath Amlodipine Besylate 10 mg 04/24/19 10:00 04/26/19 09:39 Amlodipine PO 10 mg DAILY [facility] Administration Aspirin 81 mg 04/24/19 10:00 04/26/19 09:38 Halfprin Ec PO 81 mg DAILY [facility] Administration Atorvastatin Calcium 80 mg 04/24/19 10:00 04/26/19 09:38 Lipitor PO 80 mg QAM [facility] Administration Calcium Acetate 667 mg 04/24/19 08:00 04/26/19 09:38 Phoslo PO 667 mg TIDWM [facility] Administration Dextrose 50 ml 04/24/19 02:36 D50w (25gm) Syringe IV Q30MIN PRN Hypoglycemia Protocol Docusate Sodium 100 mg 04/24/19 10:00 04/26/19 09:38 Colace PO 100 mg BID [facility] Administration Enoxaparin Sodium 30 mg 04/26/19 10:00 04/26/19 09:38 Enoxaparin SUB-Q 30 mg QDAY [facility] Administration Ferrous Sulfate 325 mg 04/24/19 10:00 04/26/19 09:38 Feosol PO 325 mg DAILY [facility] Administration Furosemide 40 mg 04/24/19 18:00 04/26/19 05:00 Lasix IV 40 mg BID@0600,1800 [facility] Administration Hydralazine HCl 10 mg 04/24/19 02:45 04/26/19 05:01 Apresoline IV 10 mg Q4HR PRN Administration Blood Pressure Hydralazine HCl 100 mg 04/24/19 08:00 04/26/19 08:30 Apresoline PO 100 mg TID [facility] Administration Insulin Human Lispro 0 unit 04/26/19 07:30 04/26/19 09:40 Humalog SUB-Q Not Given AC [facility] Protocol Isosorbide Mononitrate 30 mg 04/26/19 11:00 Imdur PO QDAY [facility] Miscellaneous Medication 1 drop 04/24/19 06:00 Brimonidine Tartrate [Brimonidine Tartrate 0.2%] OU Q8HR MONIQUE Ondansetron HCl 4 mg 04/24/19 02:36 Zofran IV Q6H PRN Nausea And Vomiting Oxycodone/Acetaminophen 1 tab 04/24/19 02:39 Percocet 5/325 PO Q6H PRN Pain, Moderate (4-6) Sodium Bicarbonate 650 mg 04/25/19 10:00 04/26/19 09:37 Sodium Bicarbonate PO 650 mg BID MONIQUE Administration Sodium Chloride 10 ml 04/24/19 10:00 04/26/19 09:40 Sodium Chloride Flush Syringe 10 Ml IV 10 ml BID MONIQUE Administration Sodium Chloride 10 ml 04/24/19 02:36 Sodium Chloride Flush Syringe 10 Ml IV PRN PRN LINE FLUSH
[2019-04-26 15:34] LABS: Calcium 8.9 mg/dL (8.4-10.2)
[2019-04-27] MEDS: hydrALAZINE 20 MG/1 ML INJ IV PRN (04:04)
[2019-04-27] MEDS: FUROSEMIDE 40 MG/4 ML INJ IV SCH (05:01)
[2019-04-27 07:25] LABS: Calcium 8.7 mg/dL (8.4-10.2)
--- NOTE | 2019-04-27 10:18 | Progress Note ---
Assessment and Plan Assessment and plan: 58-year-old woman who typically follows at [facility] who comes to the hospital complaining of shortness of breath Past medical history includes stroke with right-sided deficits, right-sided ocular blindness, CHF, hypertension, renal disease. Vital signs reviewed heart rates in the 40s and 50s, blood pressure elevated at 171/49 Labs reviewed troponin elevated max 0.127, BNP 15,000, LDL 175, creatinine 4.8 which appears to be slightly elevated from her normal baseline of 4.3. Chest x-ray revealed pulmonary edema Acute exacerbation of diastolic CHF With BNP 15,000, echo shows preserved EF consistent with diastolic CHF -Continue diuretics, cardiology input appreciated, optimize meds. Elevated troponin Denies chest pain, most likely type II OR, being managed by cardiology Hypertensive urgency Optimize BP medications, Imdur added on 04/26 Acute on chronic kidney disease Nephrology consult, give Lasix judiciously Type 2 diabetes, has been hypoglycemic Sliding scale insulin, a1c is 5, glipizide has been dc and should not continued upon dc Leukocytosis, likely due to stress, has now resolved DVT prophylaxis with Lovenox, renally dosed Hospitalist Physical - Constitutional Vitals: Temp Pulse Resp BP Pulse Ox 98.2 F 47 L 16 184/60 95 04/27/19 04:00 04/27/19 04:00 04/27/19 04:00 04/27/19 04:00 04/27/19 04:00 General appearance: Present: no acute distress Results - Labs CBC & Chem 7: 04/25/19 06:03 04/27/19 05:24 Labs: Laboratory Last Values WBC 6.8 K/mm3 (4.5-11.0) 04/25/19 06:03 RBC 3.62 M/mm3 (3.65-5.03) L 04/25/19 06:03 Hgb 10.0 gm/dl (10.1-14.3) L 04/25/19 06:03 Hct 31.2 % (30.3-42.9) 04/25/19 06:03 MCV 86 fl (79-97) 04/25/19 06:03 MCH 28 pg (28-32) 04/25/19 06:03 MCHC 32 % (30-34) 04/25/19 06:03 RDW 14.8 % (13.2-15.2) 04/25/19 06:03 Plt Count 318 K/mm3 (140-440) 04/25/19 06:03 Lymph % (Auto) 17.2 % (13.4-35.0) 04/25/19 06:03 Camas % (Auto) 8.3 % (0.0-7.3) H 04/25/19 06:03 Eos % (Auto) 2.9 % (0.0-4.3) 04/25/19 06:03 Baso % (Auto) 0.8 % (0.0-1.8) 04/25/19 06:03 Lymph # 1.2 K/mm3 (1.2-5.4) 04/25/19 06:03 Camas # 0.6 K/mm3 (0.0-0.8) 04/25/19 06:03 Eos # 0.2 K/mm3 (0.0-0.4) 04/25/19 06:03 Baso # 0.1 K/mm3 (0.0-0.1) 04/25/19 06:03 Seg Neutrophils % 70.8 % (40.0-70.0) H 04/25/19 06:03 Seg Neutrophils # 4.8 K/mm3 (1.8-7.7) 04/25/19 06:03 PT 13.2 Sec. (12.2-14.9) 04/24/19 00:56 INR 1.01 (0.87-1.13) 04/24/19 00:56 Sodium 144 mmol/L (137-145) 04/27/19 05:24 Potassium 4.1 mmol/L (3.6-5.0) 04/27/19 05:24 Chloride 110.8 mmol/L (98-107) H 04/27/19 05:24 Carbon Dioxide 21 mmol/L (22-30) L 04/27/19 05:24 Anion Gap 16 mmol/L 04/27/19 05:24 BUN 57 mg/dL (7-17) H 04/27/19 05:24 Creatinine 4.9 mg/dL (0.7-1.2) H 04/27/19 05:24 Estimated GFR 11 ml/min 04/27/19 05:24 BUN/Creatinine Ratio 12 % 04/27/19 05:24 Glucose 79 mg/dL (65-100) 04/27/19 05:24 POC Glucose 84 (70-105) 04/27/19 08:08 Hemoglobin A1c 5.1 % (4-6) 04/24/19 00:56 Calcium 8.7 mg/dL (8.4-10.2) 04/27/19 05:24 Magnesium 1.80 mg/dL (1.7-2.3) 04/24/19 00:56 Total Creatine Kinase 396 units/L (30-135) H 04/24/19 00:56 Troponin T 0.127 ng/mL (0.00-0.029) H* D 04/25/19 06:03 NT-Pro-B Natriuret Pep 10977 pg/mL (0-900) H 04/24/19 00:56 Triglycerides 137 mg/dL (2-149) 04/24/19 03:20 Cholesterol 233 mg/dL (50-199) H 04/24/19 03:20 LDL Cholesterol Direct 175 mg/dL (50-130) H 04/24/19 03:20 HDL Cholesterol 47 mg/dL (40-59) 04/24/19 03:20 Cholesterol/HDL Ratio 4.95 % 04/24/19 03:20 TSH 1.680 mlU/mL (0.270-4.200) 04/25/19 10:40 Free T4 0.97 ng/dL (0.76-1.46) 04/25/19 10:40 Thyroxine (T4) 5.8 ug/dL (4.0-12.0) 04/25/19 10:40 Urine Color Straw (Yellow) 04/24/19 10:25 Urine Turbidity Clear (Clear) 04/24/19 10:25 Urine pH 5.0 (5.0-7.0) 04/24/19 10:25 Ur Specific Alicia 1.013 (1.003-1.030) 04/24/19 10:25 Urine Protein >2000 mg dl mg/dL (Negative) 04/24/19 10:25 Urine Glucose (UA) 150 mg/dL (Negative) 04/24/19 10:25 Urine Ketones Neg mg/dL (Negative) 04/24/19 10:25 Urine Blood Neg (Negative) 04/24/19 10:25 Urine Nitrite Neg (Negative) 04/24/19 10:25 Urine Bilirubin Neg (Negative) 04/24/19 10:25 Urine Urobilinogen < 2.0 mg/dL (<2.0) 04/24/19 10:25 Ur Leukocyte Esterase Neg (Negative) 04/24/19 10:25 Urine WBC (Auto) 3.0 /HPF (0.0-6.0) 04/24/19 10:25 Urine RBC (Auto) 3.0 /HPF (0.0-6.0) 04/24/19 10:25 U Epithel Cells (Auto) < 1.0 /HPF (0-13.0) 04/24/19 10:25 Urine Bacteria (Auto) 1+ /HPF (Negative) 04/24/19 10:25 Urine Mucus Few /HPF 04/24/19 10:25 Urine Creatinine 74.8 mg/dL (0.1-20.0) H 04/24/19 10:25 Urine Sodium 81 mmol/L 04/24/19 10:25 Urine Urea Nitrogen 524 04/24/19 10:25 Active Medications - Current Medications Current Medications: Generic Name Dose Route Start Last Admin Trade Name Freq PRN Reason Stop Dose Admin Acetaminophen 650 mg 04/24/19 02:36 Tylenol PO Q4H PRN Pain MILD(1-3)/Fever >100.5/COLVIN Albuterol 2.5 mg 04/24/19 02:36 Proventil IH Q3HRT PRN Shortness Of Breath Amlodipine Besylate 10 mg 04/24/19 10:00 04/26/19 09:39 Amlodipine PO 10 mg DAILY MONIQUE Administration Aspirin 81 mg 04/24/19 10:00 04/26/19 09:38 Halfprin Ec PO 81 mg DAILY MONIQUE Administration Atorvastatin Calcium 80 mg 04/24/19 10:00 04/26/19 09:38 Lipitor PO 80 mg QAM MONIQUE Administration Calcium Acetate 667 mg 04/24/19 08:00 04/26/19 17:35 Phoslo PO 667 mg TIDWM MONIQUE Administration Dextrose 50 ml 04/24/19 02:36 D50w (25gm) Syringe IV Q30MIN PRN Hypoglycemia Protocol Docusate Sodium 100 mg 04/24/19 10:00 04/26/19 21:37 Colace PO 100 mg BID MONIQUE Administration Enoxaparin Sodium 30 mg 04/26/19 10:00 04/26/19 09:38 Enoxaparin SUB-Q 30 mg QDAY MONIQUE Administration Ferrous Sulfate 325 mg 04/24/19 10:00 04/26/19 09:38 Feosol PO 325 mg DAILY MONIQUE Administration Furosemide 40 mg 04/24/19 18:00 04/27/19 05:01 Lasix IV 40 mg BID@0600,1800 MONIQUE Administration Hydralazine HCl 10 mg 04/24/19 02:45 04/27/19 04:04 Apresoline IV 10 mg Q4HR PRN Administration Blood Pressure Hydralazine HCl 100 mg 04/24/19 08:00 04/26/19 21:37 Apresoline PO 100 mg TID COUNTS INCLUDE 234 BEDS AT THE [facility] Administration Insulin Human Lispro 0 unit 04/26/19 07:30 04/26/19 17:14 Humalog SUB-Q Not Given AC COUNTS INCLUDE 234 BEDS AT THE [facility] Protocol Isosorbide Mononitrate 30 mg 04/26/19 11:00 04/26/19 17:35 Imdur PO 30 mg QDAY COUNTS INCLUDE 234 BEDS AT THE [facility] Administration Miscellaneous Medication 1 drop 04/24/19 06:00 Brimonidine Tartrate [Brimonidine Tartrate 0.2%] OU Q8HR COUNTS INCLUDE 234 BEDS AT THE [facility] Ondansetron HCl 4 mg 04/24/19 02:36 Zofran IV Q6H PRN Nausea And Vomiting Oxycodone/Acetaminophen 1 tab 04/24/19 02:39 Percocet 5/325 PO Q6H PRN Pain, Moderate (4-6) Sodium Bicarbonate 650 mg 04/25/19 10:00 04/26/19 21:37 Sodium Bicarbonate PO 650 mg BID MONIQUE Administration Sodium Chloride 10 ml 04/24/19 10:00 04/26/19 21:38 Sodium Chloride Flush Syringe 10 Ml IV 10 ml BID MONIQUE Administration Sodium Chloride 10 ml 04/24/19 02:36 Sodium Chloride Flush Syringe 10 Ml IV PRN PRN LINE FLUSH
--- NOTE | 2019-04-27 10:43 | Progress Note ---
Assessment and Plan Pt is noted to have loop recorder in situ. Per her daughter at bedside, this was implanted in 10/2018 at [place] and pt is regularly followed by [facility]. Optimize anti-hypertensive regimen - increase Imdur. Pt appears to be clinically improving. Follow nephrology recs. The patient has been seen in conjunction with Dr. Montero who agrees with the assessment and plan of care. - Patient Problems (1) Acute heart failure with preserved ejection fraction Current Visit: Yes Status: Acute (2) Acute kidney injury superimposed on CKD Current Visit: Yes Status: Acute (3) Hypertensive urgency Current Visit: Yes Status: Acute (4) NSTEMI (non-ST elevated myocardial infarction) Current Visit: Yes Status: Acute (5) Diabetes mellitus Current Visit: Yes Status: Acute Qualifiers: Diabetes mellitus type: type 2 Diabetes mellitus complication status: with circulatory complication Diabetes mellitus complication detail: with other circulatory complications Qualified Code(s): E11.59 - Type 2 diabetes mellitus with other circulatory complications (6) History of CVA (cerebrovascular accident) Current Visit: Yes Status: Acute (7) Hyperlipidemia Current Visit: Yes Status: Chronic (8) History of loop recorder Current Visit: Yes Status: Chronic (9) Sinus bradycardia Current Visit: Yes Status: Chronic Subjective Date of service: 04/27/19 Principal diagnosis: dyspnea Interval history: pt resting in bed, states she is feeling better today. in sinus bradycardia on telemetry, HR 40s - 50s, no pauses. pt asymptomatic. Objective Last Vital Signs Temp 98.2 F 04/27/19 04:00 Pulse 47 L 04/27/19 04:00 Resp 16 04/27/19 04:00 BP 184/60 04/27/19 04:00 Pulse Ox 95 04/27/19 04:00 - Physical Examination General: No Apparent Distress HEENT: Positive: PERRL, Normocephaly, Mucus Membranes Moist Neck: Positive: neck supple, trachea midline Cardiac: Positive: Regular Rhythm, S1/S2 Lungs: Positive: Decreased Breath Sounds Neuro: Positive: Grossly Intact Abdomen: Negative: Tender Skin: Negative: Rash Musculoskeletal: No Pain Extremities: Absent: edema - Labs and Meds Comprehensive Metabolic Panel 04/26/19 04/27/19 Range/Units 14:30 05:24 Sodium 145 144 (137-145) mmol/L Potassium 4.0 4.1 (3.6-5.0) mmol/L Chloride 110.6 H 110.8 H (98-107) mmol/L Carbon Dioxide 20 L 21 L (22-30) mmol/L BUN 59 H 57 H (7-17) mg/dL Creatinine 4.9 H 4.9 H (0.7-1.2) mg/dL Glucose 33 L* 79 (65-100) mg/dL Calcium 8.9 8.7 (8.4-10.2) mg/dL - Imaging and Cardiology EKG: report reviewed, image reviewed Echo: report reviewed (03/2018 showed EF 50-55%, mod LVH, LA and RA mildly dilated, mild MR. ) Cardiac cath: report reviewed ( 12/2014 showed patent coronaries with mild LI in epicardial vessels, EF 40%. ) - EKG Sinus rhythms and dysrhythmias: sinus rhythm
[2019-04-27] MEDS: ENOXAPARIN 30 MG/0.3 ML INJ SUB-Q SCH (11:03)
[2019-04-27] MEDS: SODIUM BICARBONATE 650 MG TAB PO SCH (11:04)
[2019-04-27] MEDS: FERROUS SULFATE 325 MG TAB PO SCH (11:04)
[2019-04-27] MEDS: amLODIPine 10 MG TAB PO SCH (11:05)
[2019-04-27] MEDS: ASPIRIN EC 81 MG TAB PO SCH (11:05)
[2019-04-27] MEDS: DOCUSATE SODIUM 100 MG CAP PO SCH (11:07)
[2019-04-27] MEDS: INSULIN LISPRO 100 UNIT/ML SUB-Q SCH ×2 (11:08→15:25)
[2019-04-27] MEDS: CALCIUM ACETATE 667 MG CAP PO SCH (11:10)
[2019-04-27] MEDS: hydrALAZINE 100 MG TAB PO SCH (11:11)
--- NOTE | 2019-04-27 11:25 | Progress Note ---
Assessment and Plan 58-year-old -[place] female with history of CKD 3, CHF, diabetes type 2, CAD, CVA with right-sided residual deficits, and right eye blindness presents with dyspnea likely due to CHF. # KIZZY on CKD: baseline creatinine appears to be around ~4s (was 4.3 on last renal clinic visit in August 2018); 4.7 on admission likely in setting of cardio- renal physiology vs progression of CKD (creatinine has been relatively stable at 4.9) - ok to continue IV Lasix 40mg BID (s/p Lasix 100mg IV x1 in ED); likely can transition to oral diuretics if able - daily renal function panel check - avoid nephrotoxins, renally dose medications - urine studies reviewed - continue sodium bicarbonate for acidosis in CKD - continue calcium acetate for secondary hyperparathyroidism/hyperphosphatemia - no indications for renal replacement therapy acutely # Anemia of CKD: hemoglobin at goal of CKD, no evidence of active bleeding - no indication for NICOLE # Acute exacerbation of CHF with elevated BNP, tropinemia - agree with current diuresis plan - strict Is/Os - sodium restriction, water restriction discussed with patient - cardiology consulted, appreciate input # Hypertensive Urgency: BP on admission 228/67, now improved - continue current regimen, diuresis for now # DM2 # Leukocytosis Thank you for this consult; we will continue to follow for all renal-related issues. Subjective Date of service: 04/27/19 Principal diagnosis: dyspnea Interval history: no acute events noted overnight. patient without any new concerns this AM. Discussed with family at bedside Objective - Exam Narrative Exam: General appearance: No apparent distress, alert and oriented 3, pleasant, obese, well-developed HEENT: right eye blind, hearing intact Neck: supple Respiratory: non-labored; clear breath sounds Cardiovascular: bradycardic; S1/S2 present Extremities: trace bilateral lower extremity pitting edema Peripheral Pulses: within normal limits Abdominal: obese, soft, non-tender, normal bowel sounds Skin: warm, dry, scattered healed bruising noted Musculoskeletal: able to move all extremities 4, right sided residual deficits related to CVA Neurological: CN II-XII grossly intact; alert and oriented x2 Psychiatric: cooperative, pleasant - Vital Signs Vital signs: Vital Signs - 12hr 04/26/19 04/27/19 04/27/19 23:27 00:00 04:00 Temperature 97.8 F 98.2 F Pulse Rate 47 L 54 L 47 L Respiratory 18 16 Rate Blood Pressure 178/53 184/60 O2 Sat by Pulse 100 95 Oximetry 04/27/19 07:59 Temperature 98.2 F Pulse Rate 47 L Respiratory 18 Rate Blood Pressure 152/47 O2 Sat by Pulse 98 Oximetry - Lab 04/25/19 06:03 04/27/19 05:24 Most recent lab results Calcium 8.7 mg/dL (8.4-10.2) 04/27/19 05:24 Magnesium 1.80 mg/dL (1.7-2.3) 04/24/19 00:56 Urine Creatinine 74.8 mg/dL (0.1-20.0) H 04/24/19 10:25 Urine Sodium 81 mmol/L 04/24/19 10:25 Medications & Allergies - Medications Allergies/Adverse Reactions: Allergies No Known Allergies Allergy (Verified 10/02/13 23:34) Home Medications: Home Medications Medication Instructions Recorded Confirmed Last Taken Type Atorvastatin [Lipitor] 80 mg PO QAM 03/17/18 04/24/19 Unknown History Insulin Detemir (Nf) [Levemir 15 unit SQ BID 03/17/18 04/24/19 1 Day Ago History Flextouch (Nf)] ~04/23/19 glipiZIDE [Glipizide] 10 mg PO BID 03/17/18 04/24/19 Unknown History hydrALAZINE [Apresoline TAB] 100 mg PO TID #90 tab 03/20/18 04/24/19 Unknown Rx Amlodipine Besylate [Norvasc] 10 mg PO DAILY 04/24/19 04/24/19 Unknown History Aspirin [Adult Aspirin] 81 mg PO DAILY 04/24/19 04/24/19 Unknown History Atenolol [Tenormin] 50 mg PO DAILY 04/24/19 04/24/19 Unknown History Brimonidine Tartrate [Brimonidine 1 drop OU Q8HR 04/24/19 04/24/19 Unknown History Tartrate 0.2%] Calcium Acetate [Phoslo] 667 mg PO TID 04/24/19 04/24/19 Unknown History Ferrous Sulfate [Ferrous Sulfate 325 mg PO DAILY 04/24/19 04/24/19 Unknown History 324 MG] Furosemide [Lasix TAB] 40 mg PO DAILY 04/24/19 04/24/19 Unknown History Active Medications: Generic Name Dose Route Start Last Admin Trade Name Freq PRN Reason Stop Dose Admin Acetaminophen 650 mg 04/24/19 02:36 Tylenol PO Q4H PRN Pain MILD(1-3)/Fever >100.5/COLVIN Albuterol 2.5 mg 04/24/19 02:36 Proventil IH Q3HRT PRN Shortness Of Breath Amlodipine Besylate 10 mg 04/24/19 10:00 04/27/19 11:05 Amlodipine PO 10 mg DAILY MONIQUE Administration Aspirin 81 mg 04/24/19 10:00 04/27/19 11:05 Halfprin Ec PO 81 mg DAILY MONIQUE Administration Atorvastatin Calcium 80 mg 04/24/19 10:00 04/27/19 11:04 Lipitor PO 80 mg QAM MONIQUE Administration Calcium Acetate 667 mg 04/24/19 08:00 04/27/19 11:10 Phoslo PO 667 mg TIDWM [facility] Administration Dextrose 50 ml 04/24/19 02:36 D50w (25gm) Syringe IV Q30MIN PRN Hypoglycemia Protocol Docusate Sodium 100 mg 04/24/19 10:00 04/27/19 11:07 Colace PO 100 mg BID [facility] Administration Enoxaparin Sodium 30 mg 04/26/19 10:00 04/27/19 11:03 Enoxaparin SUB-Q 30 mg QDAY [facility] Administration Ferrous Sulfate 325 mg 04/24/19 10:00 04/27/19 11:04 Feosol PO 325 mg DAILY [facility] Administration Furosemide 40 mg 04/24/19 18:00 04/27/19 05:01 Lasix IV 40 mg BID@0600,1800 [facility] Administration Hydralazine HCl 10 mg 04/24/19 02:45 04/27/19 04:04 Apresoline IV 10 mg Q4HR PRN Administration Blood Pressure Hydralazine HCl 100 mg 04/24/19 08:00 04/27/19 11:11 Apresoline PO Not Given TID [facility] Insulin Human Lispro 0 unit 04/26/19 07:30 04/27/19 11:08 Humalog SUB-Q Not Given AC [facility] Protocol Isosorbide Mononitrate 60 mg 04/27/19 10:43 Imdur PO QDAY [facility] Miscellaneous Medication 1 drop 04/24/19 06:00 Brimonidine Tartrate [Brimonidine Tartrate 0.2%] OU Q8HR MONIQUE Ondansetron HCl 4 mg 04/24/19 02:36 Zofran IV Q6H PRN Nausea And Vomiting Oxycodone/Acetaminophen 1 tab 04/24/19 02:39 Percocet 5/325 PO Q6H PRN Pain, Moderate (4-6) Sodium Bicarbonate 650 mg 04/25/19 10:00 04/27/19 11:04 Sodium Bicarbonate PO 650 mg BID MONIQUE Administration Sodium Chloride 10 ml 04/24/19 10:00 04/27/19 11:07 Sodium Chloride Flush Syringe 10 Ml IV 10 ml BID MONIQUE Administration Sodium Chloride 10 ml 04/24/19 02:36 Sodium Chloride Flush Syringe 10 Ml IV PRN PRN LINE FLUSH
[2019-04-27 12:06] VITALS: BP 186/61
--- NOTE | 2019-04-27 12:22 | Discharge Summary ---
Providers - Providers Date of Admission: 04/24/19 02:36 Attending physician: TAMELA LAW MD 04/24/19 02:39 Consult to Physician [CONS] Routine Comment: Consulting Provider: NATALIE ANDREWS Physician Instructions: Reason For Exam: elevated troponin, AE CHF Consult to Physician [CONS] Routine Comment: Consulting Provider: LINDA BETH Physician Instructions: Reason For Exam: KIZZY Primary care physician: ADMINISTRATIVE ASSOCIATE Hospitalization Condition: Fair Hospital course: 58-year-old woman who typically follows at [facility] who comes to the hospital complaining of shortness of breath Past medical history includes stroke with right-sided deficits, right-sided ocular blindness, CHF, hypertension, renal disease. Labs reviewed troponin elevated max 0.127, BNP 15,000, LDL 175, creatinine 4.8 which appears to be slightly elevated from her normal baseline of 4.3. Chest x-ray revealed pulmonary edema Acute exacerbation of diastolic CHF Cardiology input appreciated, patient was diuresed and medically optimized Elevated troponin Denies chest pain, most likely type II [place], medical management was recommended by cardiology Hypertensive urgency Optimize BP medications, Imdur added on 04/26 Acute on chronic kidney disease/vasomotor nephropathy Nephrology consult, give Lasix judiciously Type 2 diabetes, has been hypoglycemic Sliding scale insulin, a1c is 5, glipizide has been dc and should not continued upon dc Leukocytosis, likely due to stress, has now resolved DVT prophylaxis with Lovenox, renally dosed Disposition: DC-01 TO HOME OR SELFCARE Time spent for discharge: 33 mins Core Measure Documentation - Palliative Care Palliative Care/ Comfort Measures: Not Applicable - Core Measures Any of the following diagnoses?: heart failure - Heart Failure Discharge Requirements SINDY/ARB for LVSD if EF <40%: Yes Beta master at discharge: Yes Exam - Constitutional Vitals: Temp Pulse Resp BP Pulse Ox 98.2 F 47 L 18 152/47 98 04/27/19 07:59 04/27/19 07:59 04/27/19 07:59 04/27/19 07:59 04/27/19 07:59 General appearance: Present: no acute distress, well-nourished - EENT Eyes: Present: PERRL ENT: hearing intact, clear oral mucosa - Neck Neck: Present: supple, normal ROM - Respiratory Respiratory effort: normal Respiratory: bilateral: CTA - Cardiovascular Heart Sounds: Present: S1 & S2. Absent: rub, click - Extremities Extremities: pulses symmetrical, No edema Peripheral Pulses: within normal limits - Abdominal General gastrointestinal: Present: soft, non-tender, non-distended, normal bowel sounds Female genitourinary: Present: normal - Integumentary Integumentary: Present: clear, warm, dry - Musculoskeletal Musculoskeletal: gait normal, strength equal bilaterally - Psychiatric Psychiatric: appropriate mood/affect, intact judgment & insight - Neurologic Neurologic: CNII-XII intact, moves all extremities Plan Follow up with: PRIMARY CARE, [Primary Care Provider] - 3-5 Days
== END 2019-04-27 16:25 | disposition home or self-care (01) | DRG 280 ==
LOC: ED 23:50 → 4A 04-24 02:36
PROVIDERS: ADMIT Internal Medicine; ATTEND Internal Medicine
DX: I13.0 Hypertensive heart and chronic kidney disease with heart failure and stage 1 through stage 4 chronic kidney disease, or unspecified chronic kidney disease (principal); I50.33 Acute on chronic diastolic (congestive) heart failure; I21.A1 Myocardial infarction type 2; I69.351 Hemiplegia and hemiparesis following cerebral infarction affecting right dominant side; N17.9 Acute kidney failure, unspecified; I16.0 Hypertensive urgency; D63.1 Anemia in chronic kidney disease; E11.59 Type 2 diabetes mellitus with other circulatory complications; E11.649 Type 2 diabetes mellitus with hypoglycemia without coma; D72.829 Elevated white blood cell count, unspecified; T38.0X5A Adverse effect of glucocorticoids and synthetic analogues, initial encounter; Y92.238 Other place in hospital as the place of occurrence of the external cause; N18.3 Chronic kidney disease, stage 3 (moderate); I25.10 Atherosclerotic heart disease of native coronary artery without angina pectoris; E11.22 Type 2 diabetes mellitus with diabetic chronic kidney disease; Z79.4 Long term (current) use of insulin; Z79.899 Other long term (current) drug therapy; I25.2 Old myocardial infarction; Z87.891 Personal history of nicotine dependence; Z82.49 Family history of ischemic heart disease and other diseases of the circulatory system
CPT/HCPCS: 36415; 71045; 80048; 80061; 81001; 82550; 82570; 82962; 83036; 83735; 83880; 84300; 84436; 84439; 84443; 84484; 84520; 85025; 85610; 93005; 93010; 93306; G0378; A9270-GY; J0360; J1644; J1650; J1940

== ENCOUNTER 2021-03-04 02:50 | Inpatient (IN) | payer MEDICARE ==
--- NOTE | 2021-03-04 04:43 | Emergency Department Report ---
ED General Adult HPI - General Chief complaint: Tube Replacement Stated complaint: DISLODGED FEEDING TUBE Time Seen by Provider: 03/04/21 03:54 Source: EMS Mode of arrival: Stretcher Limitations: Physical Limitation - History of Present Illness Initial comments: Patient is 60 years old female, long term resident with history of congestive heart failure, diabetes and altered mental status. Patient brought to the emergency room by EMS for back to replacement. retirement staff told EMS that patient G-T-tube came out last night. No other complaint at this moment. - Related Data Home Medications Medication Instructions Recorded Confirmed Last Taken Brimonidine Tartrate [Brimonidine 1 drop OU Q8HR 04/24/19 07/12/20 Unknown Tartrate 0.2%] Dorzolamide/Timolol/Pf 1 drop OU BID 07/12/20 07/12/20 Unknown [Dorzolamide-Timolol 2%-0.5%] Latanoprost 0.005% 1 drop OU QHS 07/12/20 07/12/20 Unknown Sevelamer Carbonate [Renvela] 800 mg PO TIDWM 07/12/20 07/12/20 Unknown Previous Rx's Medication Instructions Recorded Last Taken Type Sodium Bicarbonate 650 mg PO BID #14 tablet 02/29/20 Unknown Rx hydrALAZINE [Apresoline TAB] 100 mg PO TID #90 tab 02/29/20 Unknown Rx Acetaminophen [Acetaminophen TAB] 650 mg PO Q4H PRN tablet 07/15/20 Unknown Rx Aspirin EC [Halfprin EC] 81 mg PO DAILY #30 tablet 07/15/20 Unknown Rx AtorvaSTATin [Lipitor] 80 mg PO QHS #30 tablet 07/15/20 Unknown Rx Calcium Acetate [Phoslo] 667 mg PO TIDWM #90 capsule 07/15/20 Unknown Rx Ferrous Sulfate [Feosol 325 MG tab] 325 mg PO DAILY #30 tablet 07/15/20 Unknown Rx Lactulose [Cephulac] 20 gm PO QDAY #30 oral.liqd 07/15/20 Unknown Rx NIFEdipine XL [Procardia Xl] 90 mg PO QDAY #30 tablet 07/15/20 Unknown Rx Aspirin 325 mg FEEDTUBE QDAY tablet 07/25/20 Unknown Rx AtorvaSTATin [Lipitor] 80 mg PO QHS tablet 07/25/20 Unknown Rx Dorzolamide/Timolol/Pf 1 drop OU BID 07/25/20 Unknown Rx [Dorzolamide-Timolol 2%-0.5%] Epoetin Gilbert-Epbx 10,000 Unit 10,000 unit IV AMY PRN vial 07/25/20 Unknown Rx [Retacrit] Lipase/Protease/Amylase [Pancreaze 1 each FEEDTUBE PRN PRN capsule 07/25/[address] 10,500 Unit] Losartan [Cozaar] 50 mg PO QDAY tablet 07/25/20 Unknown Rx Simple Syrup 15 ml FEEDTUBE PRN PRN oral.liqd 07/25/20 Unknown Rx Simple Syrup 30 ml FEEDTUBE PRN PRN oral.liqd 07/25/20 Unknown Rx Sodium Bicarbonate 325 mg FEEDTUBE PRN PRN tablet 07/25/20 Unknown Rx amLODIPine 10 mg FEEDTUBE DAILY tablet 07/25/20 Unknown Rx bisacodyL [Dulcolax suppos] 10 mg [place] QDAY PRN supp.rect 07/25/20 Unknown Rx Ferrous Sulfate [Ferrous Sulfate 300 mg PO QDAY #30 ml 07/31/20 Unknown Rx Oral Liq 300 Mg/5 Ml] Insulin Glargine [Lantus VIAL] 20 units SUB-Q QAMDIAB #1 vial 07/31/20 Unknown Rx Losartan [Cozaar] 25 mg PO QDAY #30 tablet 07/31/20 Unknown Rx Sodium Bicarbonate 650 mg PO DAILY tablet 07/31/20 Unknown Rx levETIRAcetam [Keppra] 750 mg PO BID #60 oral.liqd 07/31/20 Unknown Rx levoFLOXacin [Levaquin TAB] 500 mg PO Q48HR 14 Days tablet 07/31/20 Unknown Rx oxyCODONE /ACETAMINOPHEN [Percocet 1 tab PO Q6H PRN tablet 07/31/20 Unknown Rx 5/325 mg] Allergies Allergy/AdvReac Type Severity Reaction Status Date / Time No Known Allergies Allergy Verified 10/02/13 23:34 ED Review of Systems ROS: Stated complaint: DISLODGED FEEDING TUBE Other details as noted in HPI Comment: All other systems reviewed and negative Respiratory: denies: cough, shortness of breath ED Past Medical Hx - Past Medical History Hx Hypertension: Yes (CHF. Echo 02/2020 EF .50-.55) Hx CVA: Yes Hx Heart Attack/AMI: Yes (NSTEMI II) Hx Congestive Heart Failure: Yes Hx Diabetes: Yes Hx Deep Vein Thrombosis: No Hx Pulmonary Embolism: No Hx Liver Disease: No Hx Renal Disease: Yes Hx Seizures: No Hx Asthma: No Hx COPD: No Hx Tuberculosis: No Hx Dementia: No Hx HIV: No Additional medical history: dementia - Surgical History Past Surgical History?: Yes Hx Coronary Stent: No Hx Pacemaker: No Hx Internal Defibrillator: No Additional Surgical History: left shoulder sx - Social History Smoking Status: Former Smoker - Medications Home Medications: Home Medications Medication Instructions Recorded Confirmed Last Taken Type Brimonidine Tartrate [Brimonidine 1 drop OU Q8HR 04/24/19 07/12/20 Unknown History Tartrate 0.2%] Sodium Bicarbonate 650 mg PO BID #14 tablet 02/29/20 07/12/20 Unknown Rx hydrALAZINE [Apresoline TAB] 100 mg PO TID #90 tab 02/29/20 07/12/20 Unknown Rx Dorzolamide/Timolol/Pf 1 drop OU BID 07/12/20 07/12/20 Unknown History [Dorzolamide-Timolol 2%-0.5%] Latanoprost 0.005% 1 drop OU QHS 07/12/20 07/12/20 Unknown History Sevelamer Carbonate [Renvela] 800 mg PO TIDWM 07/12/20 07/12/20 Unknown History Acetaminophen [Acetaminophen TAB] 650 mg PO Q4H PRN tablet 07/15/20 Unknown Rx Aspirin EC [Halfprin EC] 81 mg PO DAILY #30 tablet 07/15/20 Unknown Rx AtorvaSTATin [Lipitor] 80 mg PO QHS #30 tablet 07/15/20 Unknown Rx Calcium Acetate [Phoslo] 667 mg PO TIDWM #90 capsule 07/15/20 Unknown Rx Ferrous Sulfate [Feosol 325 MG tab] 325 mg PO DAILY #30 tablet 07/15/20 Unknown Rx Lactulose [Cephulac] 20 gm PO QDAY #30 oral.liqd 07/15/20 Unknown Rx NIFEdipine XL [Procardia Xl] 90 mg PO QDAY #30 tablet 07/15/20 Unknown Rx Aspirin 325 mg FEEDTUBE QDAY tablet 07/25/20 Unknown Rx AtorvaSTATin [Lipitor] 80 mg PO QHS tablet 07/25/20 Unknown Rx Dorzolamide/Timolol/Pf 1 drop OU BID 07/25/20 Unknown Rx [Dorzolamide-Timolol 2%-0.5%] Epoetin Gilbert-Epbx 10,000 Unit 10,000 unit IV AMY PRN vial 07/25/20 Unknown Rx [Retacrit] Lipase/Protease/Amylase [Pancreaze 1 each FEEDTUBE PRN PRN capsule 07/25/20 Unknown Rx 10,500 Unit] Losartan [Cozaar] 50 mg PO QDAY tablet 07/25/20 Unknown Rx Simple Syrup 15 ml FEEDTUBE PRN PRN oral.liqd 07/25/20 Unknown Rx Simple Syrup 30 ml FEEDTUBE PRN PRN oral.liqd 07/25/20 Unknown Rx Sodium Bicarbonate 325 mg FEEDTUBE PRN PRN tablet 07/25/20 Unknown Rx amLODIPine 10 mg FEEDTUBE DAILY tablet 07/25/20 Unknown Rx bisacodyL [Dulcolax suppos] 10 mg [place] QDAY PRN supp.rect 07/25/20 Unknown Rx Ferrous Sulfate [Ferrous Sulfate 300 mg PO QDAY #30 ml 07/31/20 Unknown Rx Oral Liq 300 Mg/5 Ml] Insulin Glargine [Lantus VIAL] 20 units SUB-Q QAMDIAB #1 vial 07/31/20 Unknown Rx Losartan [Cozaar] 25 mg PO QDAY #30 tablet 07/31/20 Unknown Rx Sodium Bicarbonate 650 mg PO DAILY tablet 07/31/20 Unknown Rx levETIRAcetam [Keppra] 750 mg PO BID #60 oral.liqd 07/31/20 Unknown Rx levoFLOXacin [Levaquin TAB] 500 mg PO Q48HR 14 Days tablet 07/31/20 Unknown Rx oxyCODONE /ACETAMINOPHEN [Percocet 1 tab PO Q6H PRN tablet 07/31/20 Unknown Rx 5/325 mg] ED Physical Exam - General Limitations: Physical Limitation General appearance: alert, in no apparent distress - Respiratory Respiratory exam: Present: normal lung sounds bilaterally - Cardiovascular Cardiovascular Exam: Present: bradycardia - GI/Abdominal GI/Abdominal exam: Present: soft, other (G-tube not in place however there is no erythema or discharge.). Absent: distended, tenderness, guarding, rebound - Extremities Exam Extremities exam: Present: normal inspection, full ROM, normal capillary refill - Neurological Exam Neurological exam: Present: alert, altered ED Course Vital Signs 03/04/21 04:19 Pulse Rate 47 L Respiratory 11 L Rate Blood Pressure 155/40 [Left] O2 Sat by Pulse 100 Oximetry ED Medical Decision Making - Medical Decision Making Patient is 60 years old female, long term resident with history of congestive heart failure, diabetes and altered mental status. Patient brought to the emergency room by EMS for back to replacement. retirement staff told EMS that patient G-T-tube came out last night. No other complaint at this moment. I tried to replace the G-tube however unable to advance due to most likely tract is closed. I discussed the patient with Dr. Broderick Edge GI on-call. He stated that he will see the patient this morning for a G-tube insertion. I discussed the patient with Dr. Grimaldo, he agreed to admit the patient to medical service for further management. Critical care attestation.: If time is entered above; I have spent that time in minutes in the direct care of this critically ill patient, excluding procedure time. ED Disposition Clinical Impression: Malfunction of gastrostomy tube Disposition: 02 [facility]ORT [facility] Is pt being admited?: Yes Condition: Stable
[2021-03-04] MEDS ORDERED: SODIUM CHLORIDE 0.9% 1000 ML 1,000 ML IV ONE (04:50)
[2021-03-04] MEDS ORDERED: HYDROmorphone 1 MG/1 ML INJ IV PRN (05:13)
[2021-03-04] MEDS ORDERED: DEXTROSE 50% IN WATER (25GM) 50 ML SYRINGE IV PRN (05:13)
[2021-03-04] MEDS ORDERED: ALBUTEROL 2.5 MG/3 ML NEBU IH PRN (05:13)
[2021-03-04] MEDS ORDERED: ACETAMINOPHEN 325 MG TAB PO PRN (05:13)
[2021-03-04] MEDS ORDERED: ONDANSETRON 4 MG/2 ML INJ IV PRN (05:13)
[2021-03-04] MEDS ORDERED: oxyCODONE /ACETAMINOPHEN 5-325MG TAB PO PRN (05:13)
[2021-03-04] MEDS ORDERED: SODIUM CHLORIDE 0.9% 1000 ML 1,000 ML IV SCH (05:15)
[2021-03-04] MEDS ORDERED: LIPASE 10,500/PROTEASE 25,000/AMYLASE 43,750 (UNITS) DR CAP FEEDTUBE PRN (05:17)
[2021-03-04] MEDS ORDERED: SODIUM BICARBONATE 325 MG TAB FEEDTUBE PRN (05:17)
[2021-03-04] MEDS ORDERED: EPOETIN ALFA-EPBX 10,000 UNIT/1 ML VIAL IV PRN (05:17)
--- NOTE | 2021-03-04 05:25 | History and Physical Report ---
History of Present Illness Date of examination: 03/04/21 Date of admission: 03/04/21 Chief complaint: G-tube came out History of present illness: 60 years old female, senior living resident with history of congestive heart failure, diabetes and altered mental statuus was brought to the emergency room because patient G-tube came out last night. No other complaint at this moment. Patient is demented. Apparently no chest pain no shortness of breath . Subsequently Case was discussed with GI Dr. Edge. We will see the patient in consultation and replace the G-tube in the morning. All labs are pending Med rec is done. Advance discharge planning is initiated Past History Past Medical History: acute [place], diabetes, heart failure, renal failure, stroke, other (Dementia) Medications and Allergies Allergies Allergy/AdvReac Type Severity Reaction Status Date / Time No Known Allergies Allergy Verified 10/02/13 23:34 Home Medications Medication Instructions Recorded Confirmed Last Taken Type Brimonidine Tartrate [Brimonidine 1 drop OU Q8HR 04/24/19 07/12/20 Unknown History Tartrate 0.2%] Sodium Bicarbonate 650 mg PO BID #14 tablet 02/29/20 07/12/20 Unknown Rx hydrALAZINE [Apresoline TAB] 100 mg PO TID #90 tab 02/29/20 07/12/20 Unknown Rx Dorzolamide/Timolol/Pf 1 drop OU BID 07/12/20 07/12/20 Unknown History [Dorzolamide-Timolol 2%-0.5%] Latanoprost 0.005% 1 drop OU QHS 07/12/20 07/12/20 Unknown History Sevelamer Carbonate [Renvela] 800 mg PO TIDWM 07/12/20 07/12/20 Unknown History Acetaminophen [Acetaminophen TAB] 650 mg PO Q4H PRN tablet 07/15/20 Unknown Rx Aspirin EC [Halfprin EC] 81 mg PO DAILY #30 tablet 07/15/20 Unknown Rx AtorvaSTATin [Lipitor] 80 mg PO QHS #30 tablet 07/15/20 Unknown Rx Calcium Acetate [Phoslo] 667 mg PO TIDWM #90 capsule 07/15/20 Unknown Rx Ferrous Sulfate [Feosol 325 MG tab] 325 mg PO DAILY #30 tablet 07/15/20 Unknown Rx Lactulose [Cephulac] 20 gm PO QDAY #30 oral.liqd 07/15/20 Unknown Rx NIFEdipine XL [Procardia Xl] 90 mg PO QDAY #30 tablet 07/15/20 Unknown Rx Aspirin 325 mg FEEDTUBE QDAY tablet 07/25/20 Unknown Rx AtorvaSTATin [Lipitor] 80 mg PO QHS tablet 07/25/20 Unknown Rx Dorzolamide/Timolol/Pf 1 drop OU BID 07/25/20 Unknown Rx [Dorzolamide-Timolol 2%-0.5%] Epoetin Gilbert-Epbx 10,000 Unit 10,000 unit IV AMY PRN vial 07/25/20 Unknown Rx [Retacrit] Lipase/Protease/Amylase [Pancreaze 1 each FEEDTUBE PRN PRN capsule 07/25/20 Unknown Rx 10,500 Unit] Losartan [Cozaar] 50 mg PO QDAY tablet 07/25/20 Unknown Rx Simple Syrup 15 ml FEEDTUBE PRN PRN oral.liqd 07/25/20 Unknown Rx Simple Syrup 30 ml FEEDTUBE PRN PRN oral.liqd 07/25/20 Unknown Rx Sodium Bicarbonate 325 mg FEEDTUBE PRN PRN tablet 07/25/20 Unknown Rx amLODIPine 10 mg FEEDTUBE DAILY tablet 07/25/20 Unknown Rx bisacodyL [Dulcolax suppos] 10 mg [place] QDAY PRN supp.rect 07/25/20 Unknown Rx Ferrous Sulfate [Ferrous Sulfate 300 mg PO QDAY #30 ml 07/31/20 Unknown Rx Oral Liq 300 Mg/5 Ml] Insulin Glargine [Lantus VIAL] 20 units SUB-Q QAMDIAB #1 vial 07/31/20 Unknown Rx Losartan [Cozaar] 25 mg PO QDAY #30 tablet 07/31/20 Unknown Rx Sodium Bicarbonate 650 mg PO DAILY tablet 07/31/20 Unknown Rx levETIRAcetam [Keppra] 750 mg PO BID #60 oral.liqd 07/31/20 Unknown Rx levoFLOXacin [Levaquin TAB] 500 mg PO Q48HR 14 Days tablet 07/31/20 Unknown Rx oxyCODONE /ACETAMINOPHEN [Percocet 1 tab PO Q6H PRN tablet 07/31/20 Unknown Rx 5/325 mg] Active Meds: Active Medications Sodium Chloride (Nacl 0.9% 1000 Ml) 1,000 mls @ 125 mls/hr IV ONCE ONE Stop: 03/04/21 12:49 Review of Systems All systems: negative Constitutional: other (G-tube came out) Exam - Constitutional Vitals: Temp Pulse Resp BP Pulse Ox 47 L 11 L 155/40 100 03/04/21 04:19 03/04/21 04:19 03/04/21 04:03/04/21 04:19 General appearance: Present: no acute distress, well-nourished - EENT Eyes: Present: PERRL ENT: hearing intact, clear oral mucosa - Neck Neck: Present: supple, normal ROM - Respiratory Respiratory effort: normal Respiratory: bilateral: CTA - Cardiovascular Heart Sounds: Present: S1 & S2. Absent: rub, click - Extremities Extremities: pulses symmetrical, No edema Peripheral Pulses: within normal limits - Abdominal General gastrointestinal: Present: soft, non-tender, non-distended, normal bowel sounds, other (G-tube came out) Female genitourinary: Present: normal - Integumentary Integumentary: Present: clear, warm, dry - Musculoskeletal Musculoskeletal: gait normal, strength equal bilaterally - Psychiatric Psychiatric: appropriate mood/affect, intact judgment & insight - Neurologic Neurologic: CNII-XII intact, moves all extremities Assessment and Plan VTE prophylaxis?: Mechanical Plan of care discussed with patient/family: Yes - Patient Problems (1) Gastrojejunostomy tube dislodgement Status: Acute Plan to address problem: Admit the patient to the medical floor. N.p.o. Normal saline at the rate of 100 cc/h. Pepcid 20 mg IV every 12 hours. Will consult GI for evaluation and replacement of the G-tube in the morning. Recheck CBC BMP in the morning (2) CKD (chronic kidney disease) Status: Chronic Plan to address problem: Avoid nephrotoxic drug. Renally dose medication. Rechecks BMP in the morning. Consult nephrology if needed (3) Diabetes mellitus Status: Chronic Plan to address problem: NPO. Normal saline at the rate of 100 cc/h. Accu-Chek every every 6 hours with insulin coverage. And diabetic education (4) History of CVA (cerebrovascular accident) Status: Chronic Plan to address problem: Stable. We will continue the home medication. Outpatient follow-up with neurology (5) Hypertension Status: Chronic Plan to address problem: Stable. Hydralazine 100 mg p.o. 3 times daily .need for deep vein 90 mg p.o. daily .losartan 50 mg p.o. daily .amlodipine 10 mg p.o. daily. We will continue the home medication. (6) DVT prophylaxis Status: Acute Plan to address problem: SCD for DVT prophylaxis. Pepcid 20 mg IV every 12 hours for GI prophylaxis. Patient is a full code
[2021-03-04 05:44] LABS: Basophils % (Auto) 0.6 % (0.0-1.8); Eosinophils # (Auto) 0.2 K/mm3 (0.0-0.4); Eosinophils % (Auto) 3.4 % (0.0-4.3); Hematocrit 30.8 % (30.3-42.9); Hemoglobin 10.1 gm/dl (10.1-14.3); Lymphocytes # (Auto) 0.8 K/mm3 (1.2-5.4); Lymphocytes % (Auto) 14.3 % (13.4-35.0); Mean Corpuscular HGB Conc 33 % (30-34); Mean Corpuscular Volume 83 fl (79-97); Monocytes # (Auto) 0.4 K/mm3 (0.0-0.8); Monocytes % (Auto) 6.6 % (0.0-7.3); Platelet Count 306 K/mm3 (140-440); Red Cell Distribution Width 16.9 % (13.2-15.2)
[2021-03-04 05:45] LABS: Calcium 10.3 mg/dL (8.4-10.2)
[2021-03-04 05:52] LABS: INR 0.99 (0.87-1.13); Partial Thromboplastin Time 30.6 Sec. (24.2-36.6)
[2021-03-04] MEDS: INSULIN LISPRO 100 UNIT/ML SUB-Q SCH ×3 (05:52→19:58)
[2021-03-04] MEDS ORDERED: NON-FORMULARY EACH (Brimonidine Tartrate [Brimonidine Tartrate 0.2%] 15 ML Drops) OU SCH (06:00)
[2021-03-04] MEDS ORDERED: SEVELAMER CARBONATE 800 MG TAB PO SCH (08:00)
[2021-03-04] MEDS: hydrALAZINE 100 MG TAB PO SCH ×3 (08:17→22:53)
[2021-03-04] MEDS: CALCIUM ACETATE 667 MG CAP PO SCH ×3 (08:17→22:52)
[2021-03-04] MEDS ORDERED: DORZOLAMIDE OU SCH (10:00)
[2021-03-04] MEDS ORDERED: NIFEdipine XL 60 MG TAB PO SCH (10:00)
[2021-03-04] MEDS ORDERED: levoFLOXacin 500 MG TAB PO SCH (10:00)
[2021-03-04] MEDS ORDERED: FAMOTIDINE 20 MG/2 ML INJ IV SCH (10:00)
[2021-03-04] MEDS ORDERED: TIMOLOL OU SCH (10:00)
[2021-03-04] MEDS ORDERED: FERROUS SULFATE 325 MG TAB PO SCH (10:00)
[2021-03-04] MEDS: LOSARTAN 25 MG TAB PO SCH (12:31)
[2021-03-04] MEDS: amLODIPine 10 MG TAB FEEDTUBE SCH (12:31)
[2021-03-04] MEDS: LACTULOSE 20 GM/30 ML ORAL LIQD PO SCH (12:31)
[2021-03-04] MEDS: SODIUM BICARBONATE 650 MG TAB PO SCH ×2 (12:32→22:54)
[2021-03-04] MEDS: levETIRAcetam 500 MG/5 ML ORAL LIQD PO SCH ×2 (12:32→22:53)
--- NOTE | 2021-03-04 12:54 | Gastroenterology Consultation ---
History of Present Illness - Reason for Consult Consult date: 03/04/21 PEG Malfunction Requesting physician: KAMALA VELAZCO - History of Present Illness The patient is a 60 yo female admitted in July with CVA, worsening renal function (requiring new HD), and symptomatic bradycardia. At that time, her mental status was very poor, and a PEG tube was placed. She was discharged to a custodial, and returned overnight after the tube was dislodged. It was meryl ble to be replaced by ER staff. She currently is awake and oriented to self. She denies LUQ pain, and has no fever. She is able to follow all commands, and is not dysphonic or coughing. She is able to swallow sips of water without coughing. Past History Past Medical History: acute [place], diabetes, heart failure, renal failure, stroke, other (Dementia) Past Surgical History: Other (VasCath) Social history: other (Lives in [place]) Family history: no significant family history Medications and Allergies Allergies Allergy/AdvReac Type Severity Reaction Status Date / Time No Known Allergies Allergy Verified 03/04/21 11:36 Home Medications Medication Instructions Recorded Confirmed Last Taken Type Brimonidine Tartrate [Brimonidine 1 drop OU Q8HR 04/24/19 07/12/20 Unknown History Tartrate 0.2%] Sodium Bicarbonate 650 mg PO BID #14 tablet 02/29/20 07/12/20 Unknown Rx hydrALAZINE [Apresoline TAB] 100 mg PO TID #90 tab 02/29/20 07/12/20 Unknown Rx Dorzolamide/Timolol/Pf 1 drop OU BID 07/12/20 07/12/20 Unknown History [Dorzolamide-Timolol 2%-0.5%] Latanoprost 0.005% 1 drop OU QHS 07/12/20 07/12/20 Unknown History Sevelamer Carbonate [Renvela] 800 mg PO TIDWM 07/12/20 07/12/20 Unknown History Acetaminophen [Acetaminophen TAB] 650 mg PO Q4H PRN tablet 07/15/20 Unknown Rx Aspirin EC [Halfprin EC] 81 mg PO DAILY #30 tablet 07/15/20 Unknown Rx AtorvaSTATin [Lipitor] 80 mg PO QHS #30 tablet 07/15/20 Unknown Rx Calcium Acetate [Phoslo] 667 mg PO TIDWM #90 capsule 07/15/20 Unknown Rx Ferrous Sulfate [Feosol 325 MG tab] 325 mg PO DAILY #30 tablet 07/15/20 Unknown Rx Lactulose [Cephulac] 20 gm PO QDAY #30 oral.liqd 07/15/20 Unknown Rx NIFEdipine XL [Procardia Xl] 90 mg PO QDAY #30 tablet 07/15/20 Unknown Rx Aspirin 325 mg FEEDTUBE QDAY tablet 07/25/20 Unknown Rx AtorvaSTATin [Lipitor] 80 mg PO QHS tablet 07/25/20 Unknown Rx Dorzolamide/Timolol/Pf 1 drop OU BID 07/25/20 Unknown Rx [Dorzolamide-Timolol 2%-0.5%] Epoetin Gilbert-Epbx 10,000 Unit 10,000 unit IV AMY PRN vial 07/25/20 Unknown Rx [Retacrit] Lipase/Protease/Amylase [Pancreaze 1 each FEEDTUBE PRN PRN capsule 07/25/[address] 10,500 Unit] Losartan [Cozaar] 50 mg PO QDAY tablet 07/25/20 Unknown Rx Simple Syrup 15 ml FEEDTUBE PRN PRN oral.liqd 07/25/20 Unknown Rx Simple Syrup 30 ml FEEDTUBE PRN PRN oral.liqd 07/25/20 Unknown Rx Sodium Bicarbonate 325 mg FEEDTUBE PRN PRN tablet 07/25/20 Unknown Rx amLODIPine 10 mg FEEDTUBE DAILY tablet 07/25/20 Unknown Rx bisacodyL [Dulcolax suppos] 10 mg [place] QDAY PRN supp.rect 07/25/20 Unknown Rx Ferrous Sulfate [Ferrous Sulfate 300 mg PO QDAY #30 ml 07/31/20 Unknown Rx Oral Liq 300 Mg/5 Ml] Insulin Glargine [Lantus VIAL] 20 units SUB-Q QAMDIAB #1 vial 07/31/20 Unknown Rx Losartan [Cozaar] 25 mg PO QDAY #30 tablet 07/31/20 Unknown Rx Sodium Bicarbonate 650 mg PO DAILY tablet 07/31/20 Unknown Rx levETIRAcetam [Keppra] 750 mg PO BID #60 oral.liqd 07/31/20 Unknown Rx levoFLOXacin [Levaquin TAB] 500 mg PO Q48HR 14 Days tablet 07/31/20 Unknown Rx oxyCODONE /ACETAMINOPHEN [Percocet 1 tab PO Q6H PRN tablet 07/31/20 Unknown Rx 5/325 mg] Active Meds: Active Medications Acetaminophen (Acetaminophen 325 Mg Tab) 650 mg PO Q4H PRN PRN Reason: Pain MILD(1-3)/Fever >100.5/COLVIN Albuterol (Albuterol 2.5 Mg/3 Ml Nebu) 2.5 mg IH Q4HRT PRN PRN Reason: Shortness Of Breath Albuterol/Ipratropium (Ipratropium/Albuterol Sulfate 3 Ml Ampul.Neb) 1 ampul IH Q6HRT [facility] Amlodipine Besylate (Amlodipine 10 Mg Tab) 10 mg FEEDTUBE DAILY [facility] Last Admin: 03/04/21 12:31 Dose: Not Given Documented by: Lipase/Protease/Amylase (Lipase 10,500/Protease 25,000/Amylase 43,750 (Units) Dr Hope) 1 each FEEDTUBE PRN PRN PRN Reason: For Clogged Feeding Tube Atorvastatin Calcium (Atorvastatin 40 Mg Tab) 80 mg PO QHS [facility] Bisacodyl (Bisacodyl 10 Mg Rect Supp) 10 mg [place] QDAY PRN PRN Reason: Constipation Calcium Acetate (Calcium Acetate 667 Mg Cap) 667 mg PO TIDWM [facility] Last Admin: 03/04/21 12:32 Dose: Not Given Documented by: Dextrose (Dextrose 50% In Water (25gm) 50 Ml Syringe) 0 ml IV Q30MIN PRN; Protocol PRN Reason: Hypoglycemia Famotidine (Famotidine 20 Mg/2 Ml Inj) 20 mg IV QAM [facility] Ferrous Sulfate (Ferrous Sulfate 325 Mg Tab) 325 mg PO DAILY [facility] Last Admin: 03/04/21 12:31 Dose: Not Given Documented by: Hydralazine HCl (Hydralazine 100 Mg Tab) 100 mg PO TID [facility] Last Admin: 03/04/21 08:17 Dose: Not Given Documented by: Hydromorphone HCl (Hydromorphone 1 Mg/1 Ml Inj) 0.5 mg IV Q3H PRN PRN Reason: Pain , Severe (7-10) Sodium Chloride (Nacl 0.9% 1000 Ml) 1,000 mls @ 100 mls/hr IV DIRECT [facility] Last Admin: 03/04/21 05:45 Dose: 100 mls/hr Documented by: Potassium Chloride/Dextrose/Sod Cl (D5w/Ns W/Kcl 20meq) 20 meq in 1,000 mls @ 42 mls/hr IV DIRECT [facility] Insulin Human Lispro (Insulin Lispro 100 Unit/Ml) 0 unit SUB-Q Q6HR [facility]; Protocol Last Admin: 03/04/21 12:33 Dose: Not Given Documented by: Lactulose (Lactulose 20 Gm/30 Ml Oral Liqd) 20 gm PO QDAY [facility] Last Admin: 03/04/21 12:31 Dose: Not Given Documented by: Latanoprost (Latanoprost 0.005% Ophth Soln 2.5 Ml) 1 drops OU QHS [facility] Levetiracetam (Levetiracetam 500 Mg/5 Ml Oral Liqd) 750 mg PO BID [facility] Last Admin: 03/04/21 12:32 Dose: Not Given Documented by: Losartan Potassium (Losartan 25 Mg Tab) 25 mg PO QDAY [facility] Last Admin: 03/04/21 12:31 Dose: Not Given Documented by: Miscellaneous Medication (Brimonidine Tartrate [Brimonidine Tartrate 0.2%]) 1 drop OU Q8HR [facility] Miscellaneous Medication (Dorzolamide/Timolol/Pf [Dorzolamide-Timolol 2%-0.5%]) 1 drop OU BID [facility] Ondansetron HCl (Ondansetron 4 Mg/2 Ml Inj) 4 mg IV Q8H PRN PRN Reason: Nausea And Vomiting Sodium Bicarbonate (Sodium Bicarbonate 325 Mg Tab) 325 mg FEEDTUBE PRN PRN PRN Reason: For Clogged Feeding Tube Sodium Bicarbonate (Sodium Bicarbonate 650 Mg Tab) 650 mg PO BID [facility] Last Admin: 03/04/21 12:32 Dose: Not Given Documented by: Sodium Chloride (Sodium Chloride 0.9% 10 Ml Flush Syringe) 10 ml IV PRN PRN PRN Reason: LINE FLUSH I HAVE REVIEWED / RECONCILED MEDICATIONS Review of Systems - Review of Systems All systems: negative (as noted in the HPI.) Exam - Constitutional Vital Signs: Temp Pulse Resp BP Pulse Ox 46 L 14 143/42 96 03/04/21 12:41 03/04/21 12:41 03/04/21 12:41 03/04/21 12:41 General appearance: no acute distress - EENT Eyes: other (Blind R eye) ENT: hearing intact, clear oral mucosa, poor dentition, no thrush - Neck Neck: supple, normal ROM - Respiratory Respiratory effort: normal Respiratory: bilateral: CTA - Cardiovascular Rhythm: regular Heart Sounds: Present: S1 & S2 Extremities: no ischemia, No edema - Gastrointestinal General gastrointestinal: Present: soft, non-tender, non-distended, other (PEG site in RUQ C/D/I and fistula is closed) - Integumentary Integumentary: Present: clear, warm, dry - Neurologic Neurological: oriented to person, oriented to place, other (Able to move extremeties; no cough when swallowing; phonation WNL) - Labs CBC & Chem 7: 03/04/21 05:07 03/04/21 05:07 Lab Results: Laboratory Results - last 24 hr 03/04/21 03/04/21 03/04/21 05:07 05:07 05:07 WBC 5.6 RBC 3.70 Hgb 10.1 Hct 30.8 MCV 83 MCH 27 L MCHC 33 RDW 16.9 H Plt Count 306 Lymph % (Auto) 14.3 [place] % (Auto) 6.6 Eos % (Auto) 3.4 Baso % (Auto) 0.6 Lymph # (Auto) 0.8 L [place] # (Auto) 0.4 Eos # (Auto) 0.2 Baso # (Auto) 0.0 Seg Neutrophils % 75.1 H Seg Neutrophils # 4.2 PT 13.6 INR 0.99 APTT 30.6 Sodium 137 Potassium 3.1 L Chloride 95.9 L Carbon Dioxide 29 Anion Gap 15 BUN 37 H Creatinine 4.3 H Estimated GFR 13 BUN/Creatinine Ratio 9 Glucose 104 H POC Glucose Calcium 10.3 H 03/04/21 03/04/21 05:52 12:24 WBC RBC Hgb Hct MCV MCH MCHC RDW Plt Count Lymph % (Auto) [place] % (Auto) Eos % (Auto) Baso % (Auto) Lymph # (Auto) [place] # (Auto) Eos # (Auto) Baso # (Auto) Seg Neutrophils % Seg Neutrophils # PT INR APTT Sodium Potassium Chloride Carbon Dioxide Anion Gap BUN Creatinine Estimated GFR BUN/Creatinine Ratio Glucose POC Glucose 91 73 Calcium Assessment and Plan - Patient Problems (1) Malfunction of percutaneous endoscopic gastrostomy (PEG) tube Current Visit: Yes Status: Acute (2) Neurogenic dysphagia Current Visit: Yes Status: Acute Plan to address problem: - The patient's mental status appears much improved from her hospitalization on July. - Before replacing PEG tube (which will require EGD since fistula closed) I would get a ST evaluation and see if she can be advanced to PO diet.
--- NOTE | 2021-03-04 16:17 | Event Note ---
Date: 03/04/21 Patient seen and examined, Presented to ER with a dislodged PEG tube Discussed with GI, will order for speech eval, will continue p.o. meds for now if tolerates p.o. If patient passes speech eval, no need for PEG tube Continue to monitor for now
--- NOTE | 2021-03-04 17:00 | Consultation ---
History of Present Illness - Reason for Consult Consult date: 03/04/21 end stage renal disease - History of Present Illness This is a 60-year-old woman with history of stroke with end-stage renal disease on hemodialysis, history of stroke with residual deficits who was sent from the longterm following dislodgment of her G-tube. She usually dialyzes at [facility] but due to Covid was recently being dialyzed at the cohort clinic at [facility]. Nephrology was consulted for ESRD management. Due to vascular dementia, patient is unable to provide history and history was obtained from kenya moser. Past History Past Medical History: acute [place], diabetes, heart failure, renal failure, stroke, other (Dementia) Past Surgical History: Other (VasCath) Social history: other (Lives in [place]) Family history: no significant family history Medications and Allergies Allergies Allergy/AdvReac Type Severity Reaction Status Date / Time No Known Allergies Allergy Verified 03/04/21 11:36 Home Medications Medication Instructions Recorded Confirmed Last Taken Type Brimonidine Tartrate [Brimonidine 1 drop OU Q8HR 04/24/19 07/12/20 Unknown History Tartrate 0.2%] Sodium Bicarbonate 650 mg PO BID #14 tablet 02/29/20 07/12/20 Unknown Rx hydrALAZINE [Apresoline TAB] 100 mg PO TID #90 tab 02/29/20 07/12/20 Unknown Rx Dorzolamide/Timolol/Pf 1 drop OU BID 07/12/20 07/12/20 Unknown History [Dorzolamide-Timolol 2%-0.5%] Latanoprost 0.005% 1 drop OU QHS 07/12/20 07/12/20 Unknown History Sevelamer Carbonate [Renvela] 800 mg PO TIDWM 07/12/20 07/12/20 Unknown History Acetaminophen [Acetaminophen TAB] 650 mg PO Q4H PRN tablet 07/15/20 Unknown Rx Aspirin EC [Halfprin EC] 81 mg PO DAILY #30 tablet 07/15/20 Unknown Rx AtorvaSTATin [Lipitor] 80 mg PO QHS #30 tablet 07/15/20 Unknown Rx Calcium Acetate [Phoslo] 667 mg PO TIDWM #90 capsule 07/15/20 Unknown Rx Ferrous Sulfate [Feosol 325 MG tab] 325 mg PO DAILY #30 tablet 07/15/20 Unknown Rx Lactulose [Cephulac] 20 gm PO QDAY #30 oral.liqd 07/15/20 Unknown Rx NIFEdipine XL [Procardia Xl] 90 mg PO QDAY #30 tablet 07/15/20 Unknown Rx Aspirin 325 mg FEEDTUBE QDAY tablet 07/25/20 Unknown Rx AtorvaSTATin [Lipitor] 80 mg PO QHS tablet 07/25/20 Unknown Rx Dorzolamide/Timolol/Pf 1 drop OU BID 07/25/20 Unknown Rx [Dorzolamide-Timolol 2%-0.5%] Epoetin Gilbert-Epbx 10,000 Unit 10,000 unit IV AMY PRN vial 07/25/20 Unknown Rx [Retacrit] Lipase/Protease/Amylase [Pancreaze 1 each FEEDTUBE PRN PRN capsule 07/25/20 Unknown Rx 10,500 Unit] Losartan [Cozaar] 50 mg PO QDAY tablet 07/25/20 Unknown Rx Simple Syrup 15 ml FEEDTUBE PRN PRN oral.liqd 07/25/20 Unknown Rx Simple Syrup 30 ml FEEDTUBE PRN PRN oral.liqd 07/25/20 Unknown Rx Sodium Bicarbonate 325 mg FEEDTUBE PRN PRN tablet 07/25/20 Unknown Rx amLODIPine 10 mg FEEDTUBE DAILY tablet 07/25/20 Unknown Rx bisacodyL [Dulcolax suppos] 10 mg AR QDAY PRN supp.rect 07/25/20 Unknown Rx Ferrous Sulfate [Ferrous Sulfate 300 mg PO QDAY #30 ml 07/31/20 Unknown Rx Oral Liq 300 Mg/5 Ml] Insulin Glargine [Lantus VIAL] 20 units SUB-Q QAMDIAB #1 vial 07/31/20 Unknown Rx Losartan [Cozaar] 25 mg PO QDAY #30 tablet 07/31/20 Unknown Rx Sodium Bicarbonate 650 mg PO DAILY tablet 07/31/20 Unknown Rx levETIRAcetam [Keppra] 750 mg PO BID #60 oral.liqd 07/31/20 Unknown Rx levoFLOXacin [Levaquin TAB] 500 mg PO Q48HR 14 Days tablet 07/31/20 Unknown Rx oxyCODONE /ACETAMINOPHEN [Percocet 1 tab PO Q6H PRN tablet 07/31/20 Unknown Rx 5/325 mg] Active Meds: Active Medications Acetaminophen (Acetaminophen 325 Mg Tab) 650 mg PO Q4H PRN PRN Reason: Pain MILD(1-3)/Fever >100.5/COLVIN Albuterol (Albuterol 2.5 Mg/3 Ml Nebu) 2.5 mg IH Q4HRT PRN PRN Reason: Shortness Of Breath Albuterol/Ipratropium (Ipratropium/Albuterol Sulfate 3 Ml Ampul.Neb) 1 ampul IH Q6HRT [facility] Amlodipine Besylate (Amlodipine 10 Mg Tab) 10 mg FEEDTUBE DAILY [facility] Last Admin: 03/04/21 12:31 Dose: Not Given Documented by: Lipase/Protease/Amylase (Lipase 10,500/Protease 25,000/Amylase 43,750 (Units) Dr Hope) 1 each FEEDTUBE PRN PRN PRN Reason: For Clogged Feeding Tube Atorvastatin Calcium (Atorvastatin 40 Mg Tab) 80 mg PO QHS [facility] Bisacodyl (Bisacodyl 10 Mg Rect Supp) 10 mg AR QDAY PRN PRN Reason: Constipation Calcium Acetate (Calcium Acetate 667 Mg Cap) 667 mg PO TIDWM [facility] Last Admin: 03/04/21 12:32 Dose: Not Given Documented by: Dextrose (Dextrose 50% In Water (25gm) 50 Ml Syringe) 0 ml IV Q30MIN PRN; Protocol PRN Reason: Hypoglycemia Hydralazine HCl (Hydralazine 100 Mg Tab) 100 mg PO TID [facility] Last Admin: 03/04/21 14:46 Dose: Not Given Documented by: Hydromorphone HCl (Hydromorphone 1 Mg/1 Ml Inj) 0.5 mg IV Q3H PRN PRN Reason: Pain , Severe (7-10) Sodium Chloride (Nacl 0.9% 1000 Ml) 1,000 mls @ 100 mls/hr IV DIRECT [facility] Last Admin: 03/04/21 05:45 Dose: 100 mls/hr Documented by: Potassium Chloride/Dextrose/Sod Cl (D5w/Ns W/Kcl 20meq) 20 meq in 1,000 mls @ 42 mls/hr IV DIRECT [facility] Insulin Human Lispro (Insulin Lispro 100 Unit/Ml) 0 unit SUB-Q Q6HR [facility]; Protocol Last Admin: 03/04/21 12:33 Dose: Not Given Documented by: Lactulose (Lactulose 20 Gm/30 Ml Oral Liqd) 20 gm PO QDAY [facility] Last Admin: 03/04/21 12:31 Dose: Not Given Documented by: Latanoprost (Latanoprost 0.005% Ophth Soln 2.5 Ml) 1 drops OU QHS [facility] Levetiracetam (Levetiracetam 500 Mg/5 Ml Oral Liqd) 750 mg PO BID [facility] Last Admin: 03/04/21 12:32 Dose: Not Given Documented by: Losartan Potassium (Losartan 25 Mg Tab) 25 mg PO QDAY [facility] Last Admin: 03/04/21 12:31 Dose: Not Given Documented by: Miscellaneous Medication (Brimonidine Tartrate [Brimonidine Tartrate 0.2%]) 1 drop OU Q8HR [facility] Miscellaneous Medication (Dorzolamide/Timolol/Pf [Dorzolamide-Timolol 2%-0.5%]) 1 drop OU BID [facility] Ondansetron HCl (Ondansetron 4 Mg/2 Ml Inj) 4 mg IV Q8H PRN PRN Reason: Nausea And Vomiting Pantoprazole Sodium (Pantoprazole 40 Mg Tab) 40 mg PO QDAC [facility] Sodium Bicarbonate (Sodium Bicarbonate 325 Mg Tab) 325 mg FEEDTUBE PRN PRN PRN Reason: For Clogged Feeding Tube Sodium Bicarbonate (Sodium Bicarbonate 650 Mg Tab) 650 mg PO BID [facility] Last Admin: 03/04/21 12:32 Dose: Not Given Documented by: Sodium Chloride (Sodium Chloride 0.9% 10 Ml Flush Syringe) 10 ml IV PRN PRN PRN Reason: LINE FLUSH Review of Systems ROS unobtainable: due to mental status Exam - Vital Signs Vital signs: Vital Signs Pulse Resp BP Pulse Ox 47 L 11 L 155/40 100 03/04/21 04:19 03/04/21 04:19 03/04/21 04:19 03/04/21 04:19 - Physical Exam Narrative exam: General: No acute distress HEENT: Oral mucosa moist Neck: Supple, no JVD Chest: Clear to auscultation bilaterally Heart: RRR, S1 and S2, no pericardial rub Abdomen: Soft, nontender, no renal bruit Extremity: No peripheral cyanosis, edema Neurological: Altered at baseline Dermatology: No skin rash Psych: Unable to assess Musculoskeletal: No joint effusion Results - Lab Results 03/04/21 05:07 03/04/21 05:07 Most recent lab results Calcium 10.3 mg/dL (8.4-10.2) H 03/04/21 05:07 Assessment and Plan Assessment - End-stage renal disease on hemodialysis - Hypertension - Bradycardia - Hyperparathyroidism - Hyperphosphatemia Recommendations - Hold HD today - Monitor labs and volume status daily and assess need for additional dialysis session - Recommend cardiology consult for bradycardia - Continue home antihypertensives - Hold antihypertensives on hemodialysis days for systolics less than 160 - No indication for Epogen with HD - ESRD diet with 1.4 g/kg per day protein - Renally dose medication for creatinine clearance less than 15 cc/min
[2021-03-04] MEDS: D5NS W/KCL 20 MEQ 20 MEQ/1,000 ML BAG IV SCH ×2 (19:30→19:36)
[2021-03-04] MEDS: IPRATROPIUM/ALBUTEROL SULFATE 3 ML AMPUL.NEB IH SCH ×3 (21:53→21:54)
[2021-03-05] MEDS: INSULIN LISPRO 100 UNIT/ML SUB-Q SCH ×4 (03:56→22:00)
[2021-03-05] MEDS: LATANOPROST 0.005% OPHTH SOLN 2.5 ML OU SCH ×2 (04:00→22:00)
[2021-03-05] MEDS: IPRATROPIUM/ALBUTEROL SULFATE 3 ML AMPUL.NEB IH SCH ×4 (05:26→23:25)
[2021-03-05] MEDS: PANTOPRAZOLE 40 MG TAB PO SCH (09:04)
[2021-03-05] MEDS: hydrALAZINE 100 MG TAB PO SCH ×3 (09:04→22:00)
[2021-03-05] MEDS: LOSARTAN 25 MG TAB PO SCH (09:05)
[2021-03-05] MEDS: levETIRAcetam 500 MG/5 ML ORAL LIQD PO SCH ×2 (09:05→22:00)
[2021-03-05] MEDS: CALCIUM ACETATE 667 MG CAP PO SCH ×3 (09:05→17:46)
[2021-03-05] MEDS: amLODIPine 10 MG TAB FEEDTUBE SCH (09:05)
[2021-03-05] MEDS: SODIUM BICARBONATE 650 MG TAB PO SCH ×2 (09:05→22:00)
[2021-03-05] MEDS: LACTULOSE 20 GM/30 ML ORAL LIQD PO SCH (09:05)
--- NOTE | 2021-03-05 12:30 | Progress Note ---
Assessment and Plan Assessment - End-stage renal disease on hemodialysis - Hypertension - Bradycardia - Hyperparathyroidism - Hyperphosphatemia Recommendations - Continue HD TTS - Monitor labs and volume status daily and assess need for additional dialysis session - Recommend cardiology consult for bradycardia - Continue home antihypertensives - Hold antihypertensives on hemodialysis days for systolics less than 160 - No indication for Epogen with HD - ESRD diet with 1.4 g/kg per day protein - Renally dose medication for creatinine clearance less than 15 cc/min - Patient is chronic dialysis patient at [facility] and is altered at baseline. Subjective Date of service: 03/05/21 Principal diagnosis: G tube dislodgement Interval history: Patient was seen for her renal issues Nursing, interdisciplinary and consult notes were reviewed Vitals, input and output, medications and labs were reviewed No change in mental status Objective - Exam Narrative Exam: General: No acute distress HEENT: Oral mucosa moist Neck: Supple, no JVD Chest: Clear to auscultation bilaterally Heart: RRR, S1 and S2, no pericardial rub Abdomen: Soft, nontender, no renal bruit Extremity: No peripheral cyanosis, edema Neurological: Altered at baseline Dermatology: No skin rash Psych: Unable to assess Musculoskeletal: No joint effusion - Vital Signs Vital signs: Vital Signs - 12hr 03/05/21 03/05/21 04:38 06:00 Temperature 98.4 F Pulse Rate 46 L Respiratory 16 Rate Blood Pressure 141/30 O2 Sat by Pulse 93 98 Oximetry - Lab 03/04/21 05:07 03/05/21 14:40 Most recent lab results Calcium 10.3 mg/dL (8.4-10.2) H 03/04/21 05:07 Medications & Allergies - Medications Allergies/Adverse Reactions: Allergies No Known Allergies Allergy (Verified 03/04/21 11:36) Home Medications: Home Medications Medication Instructions Recorded Confirmed Last Taken Type Brimonidine Tartrate [Brimonidine 1 drop OU Q8HR 04/24/19 07/12/20 Unknown History Tartrate 0.2%] Sodium Bicarbonate 650 mg PO BID #14 tablet 02/29/20 07/12/20 Unknown Rx hydrALAZINE [Apresoline TAB] 100 mg PO TID #90 tab 02/29/20 07/12/20 Unknown Rx Dorzolamide/Timolol/Pf 1 drop OU BID 07/12/20 07/12/20 Unknown History [Dorzolamide-Timolol 2%-0.5%] Latanoprost 0.005% 1 drop OU QHS 07/12/20 07/12/20 Unknown History Sevelamer Carbonate [Renvela] 800 mg PO TIDWM 07/12/20 07/12/20 Unknown History Acetaminophen [Acetaminophen TAB] 650 mg PO Q4H PRN tablet 07/15/20 Unknown Rx Aspirin EC [Halfprin EC] 81 mg PO DAILY #30 tablet 07/15/20 Unknown Rx AtorvaSTATin [Lipitor] 80 mg PO QHS #30 tablet 07/15/20 Unknown Rx Calcium Acetate [Phoslo] 667 mg PO TIDWM #90 capsule 07/15/20 Unknown Rx Ferrous Sulfate [Feosol 325 MG tab] 325 mg PO DAILY #30 tablet 07/15/20 Unknown Rx Lactulose [Cephulac] 20 gm PO QDAY #30 oral.liqd 07/15/20 Unknown Rx NIFEdipine XL [Procardia Xl] 90 mg PO QDAY #30 tablet 07/15/20 Unknown Rx Aspirin 325 mg FEEDTUBE QDAY tablet 07/25/20 Unknown Rx AtorvaSTATin [Lipitor] 80 mg PO QHS tablet 07/25/20 Unknown Rx Dorzolamide/Timolol/Pf 1 drop OU BID 07/25/20 Unknown Rx [Dorzolamide-Timolol 2%-0.5%] Epoetin Gilbert-Epbx 10,000 Unit 10,000 unit IV AMY PRN vial 07/25/20 Unknown Rx [Retacrit] Lipase/Protease/Amylase [Pancreaze 1 each FEEDTUBE PRN PRN capsule 07/25/20 Unknown Rx 10,500 Unit] Losartan [Cozaar] 50 mg PO QDAY tablet 07/25/20 Unknown Rx Simple Syrup 15 ml FEEDTUBE PRN PRN oral.liqd 07/25/20 Unknown Rx Simple Syrup 30 ml FEEDTUBE PRN PRN oral.liqd 07/25/20 Unknown Rx Sodium Bicarbonate 325 mg FEEDTUBE PRN PRN tablet 07/25/20 Unknown Rx amLODIPine 10 mg FEEDTUBE DAILY tablet 07/25/20 Unknown Rx bisacodyL [Dulcolax suppos] 10 mg MI QDAY PRN supp.rect 07/25/20 Unknown Rx Ferrous Sulfate [Ferrous Sulfate 300 mg PO QDAY #30 ml 07/31/20 Unknown Rx Oral Liq 300 Mg/5 Ml] Insulin Glargine [Lantus VIAL] 20 units SUB-Q QAMDIAB #1 vial 07/31/20 Unknown Rx Losartan [Cozaar] 25 mg PO QDAY #30 tablet 07/31/20 Unknown Rx Sodium Bicarbonate 650 mg PO DAILY tablet 07/31/20 Unknown Rx levETIRAcetam [Keppra] 750 mg PO BID #60 oral.liqd 07/31/20 Unknown Rx levoFLOXacin [Levaquin TAB] 500 mg PO Q48HR 14 Days tablet 07/31/20 Unknown Rx oxyCODONE /ACETAMINOPHEN [Percocet 1 tab PO Q6H PRN tablet 07/31/20 Unknown Rx 5/325 mg] Active Medications: Generic Name Dose Route Start Last Admin Trade Name Freq PRN Reason Stop Dose Admin Acetaminophen 650 mg 03/04/21 05:13 Acetaminophen 325 Mg Tab PO Q4H PRN Pain MILD(1-3)/Fever >100.5/COLVIN Albuterol 2.5 mg 03/04/21 05:13 Albuterol 2.5 Mg/3 Ml Nebu IH Q4HRT PRN Shortness Of Breath Albuterol/Ipratropium 1 ampul 03/04/21 08:00 03/05/21 05:26 Ipratropium/Albuterol Sulfate 3 Ml Ampul.Neb IH Not Given Q6HRT [facility] Amlodipine Besylate 10 mg 03/04/21 10:00 03/05/21 09:05 Amlodipine 10 Mg Tab FEEDTUBE Not Given DAILY [facility] Lipase/Protease/Amylase 1 each 03/04/21 05:17 Lipase 10,500/Protease 25,000/Amylase 43,750 (Units) Dr Hope FEEDTUBE PRN PRN For Clogged Feeding Tube Atorvastatin Calcium 80 mg 03/04/21 22:00 03/04/21 22:53 Atorvastatin 40 Mg Tab PO Not Given QHS [facility] Bisacodyl 10 mg 03/04/21 05:17 Bisacodyl 10 Mg Rect Supp [place] QDAY PRN Constipation Calcium Acetate 667 mg 03/04/21 08:00 03/05/21 11:40 Calcium Acetate 667 Mg Cap PO Not Given TIDWM [facility] Dextrose 0 ml 03/04/21 05:13 Dextrose 50% In Water (25gm) 50 Ml Syringe IV Q30MIN PRN Hypoglycemia Protocol Hydralazine HCl 100 mg 03/04/21 08:00 03/05/21 09:04 Hydralazine 100 Mg Tab PO Not Given TID [facility] Hydromorphone HCl 0.5 mg 03/04/21 05:13 03/04/21 18:27 Hydromorphone 1 Mg/1 Ml Inj IV 0.5 mg Q3H PRN Administration Pain , Severe (7-10) Sodium Chloride 1,000 mls @ 100 mls/hr 03/04/21 05:15 03/04/21 05:45 Nacl 0.9% 1000 Ml IV 100 mls/hr DIRECT [facility]QUE Administration Potassium Chloride/Dextrose/Sod Cl 20 meq in 1,000 mls @ 42 mls/hr 03/04/21 13:00 03/04/21 19:36 D5w/Ns W/Kcl 20meq IV 42 mls/hr DIRECT [facility] Administration Sodium Chloride 100 mls @ 999 mls/hr 03/05/21 12:26 Nacl 0.9% IV AMY PRN Hypotension Insulin Human Lispro 0 unit 03/04/21 06:00 03/05/21 11:40 Insulin Lispro 100 Unit/Ml SUB-Q Not Given Q6HR [facility] Protocol Lactulose 20 gm 03/04/21 10:00 03/05/21 09:05 Lactulose 20 Gm/30 Ml Oral Liqd PO Not Given QDAY [facility] Latanoprost 1 drops 03/04/21 22:00 03/05/21 04:00 Latanoprost 0.005% Ophth Soln 2.5 Ml OU 1 drops QHS [facility] Administration Levetiracetam 750 mg 03/04/21 10:00 03/05/21 09:05 Levetiracetam 500 Mg/5 Ml Oral Liqd PO Not Given BID [facility] Losartan Potassium 25 mg 03/04/21 10:00 03/05/21 09:05 Losartan 25 Mg Tab PO Not Given QDAY [facility] Miscellaneous Medication 1 drop 03/04/21 06:00 Brimonidine Tartrate [Brimonidine Tartrate 0.2%] OU Q8HR [facility] Miscellaneous Medication 1 drop 03/04/21 10:00 Dorzolamide/Timolol/Pf [Dorzolamide-Timolol 2%-0.5%] OU BID [facility] Ondansetron HCl 4 mg 03/04/21 05:13 Ondansetron 4 Mg/2 Ml Inj IV Q8H PRN Nausea And Vomiting Pantoprazole Sodium 40 mg 03/05/21 07:30 03/05/21 09:04 Pantoprazole 40 Mg Tab PO Not Given QDAC [facility] Sodium Bicarbonate 325 mg 03/04/21 05:17 Sodium Bicarbonate 325 Mg Tab FEEDTUBE PRN PRN For Clogged Feeding Tube Sodium Bicarbonate 650 mg 03/04/21 10:00 03/05/21 09:05 Sodium Bicarbonate 650 Mg Tab PO Not Given BID [facility] Sodium Chloride 10 ml 03/04/21 05:13 Sodium Chloride 0.9% 10 Ml Flush Syringe IV PRN PRN LINE FLUSH
[2021-03-05] MEDS ORDERED: SODIUM CHLORIDE 0.9% 100 ML IV PRN (14:30)
--- NOTE | 2021-03-05 15:02 | Gastroenterology Progress Note ---
Assessment and Plan - Patient Problems (1) Malfunction of percutaneous endoscopic gastrostomy (PEG) tube Current Visit: Yes Status: Acute (2) Neurogenic dysphagia Current Visit: Yes Status: Acute Plan to address problem: - The patient's mental status much improved from her hospitalization on July. - Patient passed ST eval (puree, thin liquids). - Recommend leave PEG out, but the patient will require NH assistance with all meals. - We will sign off; please call if needed. Subjective Date of service: 03/05/21 Principal diagnosis: G tube dislodgement Interval history: The patient has no complaints. Speech is nonsensical, but she can follow commands. Denies pain or nausea. Objective - Constitutional Vitals: Temp Pulse Resp BP Pulse Ox 98.4 F 46 L 16 141/30 98 03/05/21 04:38 03/05/21 04:38 03/05/21 04:38 03/05/21 04:38 03/05/21 06:00 General appearance: no acute distress - Respiratory Respiratory effort: normal Respiratory: bilateral: CTA - Cardiovascular Rhythm: regular Heart Sounds: Present: S1 & S2 - Gastrointestinal General gastrointestinal: Present: soft, non-tender, non-distended, other (PEG site healed) - Labs CBC & Chem 7: 03/04/21 05:07 03/05/21 14:40 Labs: Laboratory Results - last 24 hr 03/04/21 03/04/21 03/05/21 19:22 23:47 06:31 POC Glucose 81 86 90 Coronavirus (PCR) 03/05/21 03/05/21 08:30 11:53 POC Glucose 89 Coronavirus (PCR)
[2021-03-05 15:12] LABS: Calcium 10.4 mg/dL (8.4-10.2)
--- NOTE | 2021-03-05 15:41 | Progress Note ---
Assessment and Plan This is a 60-year-old woman with history of stroke with end-stage renal disease on hemodialysis, history of stroke with residual deficits who was sent from the snf following dislodgment of her G-tube. A/P -- Gastrojejunostomy tube dislodgement tolerating Po diet, no plan to place a new G-tube --Bradycardia, ordered today for: Consulted cardiology --ESRD On HD Dialysis per renal recommendation -- Diabetes mellitus Accu-Chek every every 6 hours with insulin coverage. Consistent carb diet -- History of CVA (cerebrovascular accident) Stable. We will continue the home medication. Outpatient follow-up with neurology -- Hypertension We will continue the home medication. Adjust as needed --Vascular dementia: Supportive care -- DVT prophylaxis SCD for DVT prophylaxis. Pepcid 20 mg IV every 12 hours for GI prophylaxis. Patient is a full code daily clinical course; 03/05/21: bradycardic on tele, HD pending. ordered 2d echo and cardiology consult. Patient tolerating oral diet, Subjective Date of service: 03/05/21 Principal diagnosis: G tube dislodgement Interval history: Patient seen and examined. Medical records and medication list reviewed. No acute event overnight noted by the RN. Patient denies any chest pain or difficulty breathing. Patient is tolerating diet. Discussed plan of care at bedside with patient. Objective - Exam Narrative Exam: GENERAL: well-developed and well-nourished lying on bed appeared to be in no discomfort. HEENT: Normocephalic. Atraumatic. No conjunctival congestion or icterus. Patient has moist mucous membranes. NECK: Supple. Trachea midline. CHEST/LUNGS: Clear to auscultated bilaterally, breathing nonlabored. No wheezes crackles or rhonchi. HEART/CARDIOVASCULAR: Regular in rate and rhythm. S1 and S2 positive. ABDOMEN: Abdomen is soft, nontender. Patient has normal bowel sounds. SKIN: There is no rash. Warm and dry. NEURO: No focal motor deficit. Follows command. MUSCULOSKELETAL: No joint effusion or tenderness. EXTRIMITY: No edema, no cyanosis or clubbing. PSYCH: Cooperative. - Constitutional Vitals: Vital Signs - 12hr 03/05/21 03/05/21 04:38 06:00 Temperature 98.4 F Pulse Rate 46 L Respiratory 16 Rate Blood Pressure 141/30 O2 Sat by Pulse 93 98 Oximetry - Labs CBC & Chem 7: 03/04/21 05:07 03/05/21 14:40 Labs: Abnormal lab results 03/05/21 Range/Units 14:40 Potassium 3.5 L (3.6-5.0) mmol/L BUN 42 H (7-17) mg/dL Creatinine 3.9 H (0.6-1.2) mg/dL Calcium 10.4 H (8.4-10.2) mg/dL
[2021-03-06] MEDS ORDERED: hydrALAZINE 20 MG/1 ML INJ IV PRN (00:06)
[2021-03-06] MEDS: IPRATROPIUM/ALBUTEROL SULFATE 3 ML AMPUL.NEB IH SCH ×3 (05:00→14:10)
[2021-03-06 05:16] LABS: Hepatitis C Virus Antibody Non-Reactive (NonReactive)
[2021-03-06 05:24] LABS: Hepatitis B Surface Antigen Nonreactive (Negative)
[2021-03-06] MEDS: INSULIN LISPRO 100 UNIT/ML SUB-Q SCH ×3 (05:50→19:21)
--- NOTE | 2021-03-06 08:45 | Progress Note ---
Assessment and Plan Assessment and plan: This is a 60-year-old woman with history of stroke with end-stage renal disease on hemodialysis, history of stroke with residual deficits who was sent from the shelter following dislodgment of her G-tube. A/P -- Gastrojejunostomy tube dislodgement tolerating Po diet, no plan to place a new G-tube --Bradycardia, ordered today for: Consulted cardiology --ESRD On HD Dialysis per renal recommendation -- Diabetes mellitus Accu-Chek every every 6 hours with insulin coverage. Consistent carb diet -- History of CVA (cerebrovascular accident) Stable. We will continue the home medication. Outpatient follow-up with neurology -- Hypertension We will continue the home medication. Adjust as needed --Vascular dementia: Supportive care -- DVT prophylaxis SCD for DVT prophylaxis. Pepcid 20 mg IV every 12 hours for GI prophylaxis. Patient is a full code daily clinical course; 03/05/21: bradycardic on tele, HD pending. ordered 2d echo and cardiology consult. Patient tolerating oral diet 03/06/2021 -Patient is pending cardiology evaluation for discharge. -No need for replacement of PEG. -Patient has outpatient dialysis at [place]. History Interval history: Patient was seen and evaluated this morning Patient was confused and demented Hospitalist Physical - Physical exam Narrative exam: Not in cardiopulmonary distress. The patient appeared well nourished and normally developed. Vital signs as documented. Head exam is unremarkable. No scleral icterus . Neck is without jugular venous distension, thyromegaly, or carotid bruits. Lungs are clear to auscultation. Cardiac exam reveals regular rate and Rhythm. Abdominal exam reveals normal bowel sounds, nontender, no organomegaly. Extremities are nonedematous and both femoral and pedal pulses are normal. [employer]: Patient was confused and demented. - Constitutional Vitals: Temp Pulse Resp BP Pulse Ox 98.2 F 49 L 20 132/107 95 03/06/21 04:48 03/06/21 04:48 03/06/21 04:48 03/06/21 04:48 03/06/21 04:48 General appearance: Present: no acute distress, well-nourished Results - Labs CBC & Chem 7: 03/04/21 05:07 03/06/21 04:34 Labs: Laboratory Last Values WBC 5.6 K/mm3 (4.5-11.0) 03/04/21 05:07 RBC 3.70 M/mm3 (3.65-5.03) 03/04/21 05:07 Hgb 10.1 gm/dl (10.1-14.3) 03/04/21 05:07 Hct 30.8 % (30.3-42.9) 03/04/21 05:07 MCV 83 fl (79-97) 03/04/21 05:07 MCH 27 pg (28-32) L 03/04/21 05:07 MCHC 33 % (30-34) 03/04/21 05:07 RDW 16.9 % (13.2-15.2) H 03/04/21 05:07 Plt Count 306 K/mm3 (140-440) 03/04/21 05:07 Lymph % (Auto) 14.3 % (13.4-35.0) 03/04/21 05:07 [place] % (Auto) 6.6 % (0.0-7.3) 03/04/21 05:07 Eos % (Auto) 3.4 % (0.0-4.3) 03/04/21 05:07 Baso % (Auto) 0.6 % (0.0-1.8) 03/04/21 05:07 Lymph # (Auto) 0.8 K/mm3 (1.2-5.4) L 03/04/21 05:07 [place] # (Auto) 0.4 K/mm3 (0.0-0.8) 03/04/21 05:07 Eos # (Auto) 0.2 K/mm3 (0.0-0.4) 03/04/21 05:07 Baso # (Auto) 0.0 K/mm3 (0.0-0.1) 03/04/21 05:07 Seg Neutrophils % 75.1 % (40.0-70.0) H 03/04/21 05:07 Seg Neutrophils # 4.2 K/mm3 (1.8-7.7) 03/04/21 05:07 PT 13.6 Sec. (12.2-14.9) 03/04/21 05:07 INR 0.99 (0.87-1.13) 03/04/21 05:07 APTT 30.6 Sec. (24.2-36.6) 03/04/21 05:07 Sodium 141 mmol/L (137-145) 03/05/21 14:40 Potassium 3.5 mmol/L (3.6-5.0) L 03/05/21 14:40 Chloride 101.0 mmol/L (98-107) 03/05/21 14:40 Carbon Dioxide 24 mmol/L (22-30) 03/05/21 14:40 Anion Gap 20 mmol/L 03/05/21 14:40 BUN 42 mg/dL (7-17) H 03/05/21 14:40 Creatinine 3.9 mg/dL (0.6-1.2) H 03/05/21 14:40 Estimated GFR 14 ml/min 03/05/21 14:40 BUN/Creatinine Ratio 11 % 03/05/21 14:40 Glucose 82 mg/dL (65-100) 03/05/21 14:40 POC Glucose 84 mg/dL (70-105) 03/06/21 05:45 Calcium 10.4 mg/dL (8.4-10.2) H 03/05/21 14:40 Coronavirus (PCR) Negative (Negative) 03/05/21 08:30 Hepatitis A IgM Ab Non-reactive (NonReactive) 03/06/21 04:34 Hep Bs Antigen Nonreactive (Negative) 03/06/21 04:34 Hep B Core IgM Ab Non-reactive (NonReactive) 03/06/21 04:34 Hepatitis C Antibody Non-reactive (NonReactive) 03/06/21 04:34 Cantu/IV: Voiding Method Incontinent Active Medications - Current Medications Current Medications: Generic Name Dose Route Start Last Admin Trade Name Freq PRN Reason Stop Dose Admin Acetaminophen 650 mg 03/04/21 05:13 Acetaminophen 325 Mg Tab PO Q4H PRN Pain MILD(1-3)/Fever >100.5/COLVIN Albuterol 2.5 mg 03/04/21 05:13 Albuterol 2.5 Mg/3 Ml Nebu IH Q4HRT PRN Shortness Of Breath Albuterol/Ipratropium 1 ampul 03/04/21 08:00 03/06/21 05:00 Ipratropium/Albuterol Sulfate 3 Ml Ampul.Neb IH Not Given Q6HRT MONIQUE Amlodipine Besylate 10 mg 03/04/21 10:00 03/05/21 09:05 Amlodipine 10 Mg Tab FEEDTUBE Not Given DAILY MONIQUE Lipase/Protease/Amylase 1 each 03/04/21 05:17 Lipase 10,500/Protease 25,000/Amylase 43,750 (Units) Dr Cap FEEDTUBE PRN PRN For Clogged Feeding Tube Atorvastatin Calcium 80 mg 03/04/21 22:00 03/05/21 22:00 Atorvastatin 40 Mg Tab PO Not Given QHS MONIQUE Bisacodyl 10 mg 03/04/21 05:17 Bisacodyl 10 Mg Rect Supp ME QDAY PRN Constipation Calcium Acetate 667 mg 03/04/21 08:00 03/05/21 17:46 Calcium Acetate 667 Mg Cap PO Not Given TIDWM MONIQUE Dextrose 0 ml 03/04/21 05:13 Dextrose 50% In Water (25gm) 50 Ml Syringe IV Q30MIN PRN Hypoglycemia Protocol Hydralazine HCl 100 mg 03/04/21 08:00 03/05/21 22:00 Hydralazine 100 Mg Tab PO Not Given TID [facility] Hydralazine HCl 10 mg 03/06/21 00:06 Hydralazine 20 Mg/1 Ml Inj IV Q6H PRN Hypertension Hydromorphone HCl 0.5 mg 03/04/21 05:13 03/04/21 18:27 Hydromorphone 1 Mg/1 Ml Inj IV 0.5 mg Q3H PRN Administration Pain , Severe (7-10) Potassium Chloride/Dextrose/Sod Cl 20 meq in 1,000 mls @ 42 mls/hr 03/04/21 13:00 03/04/21 19:36 D5w/Ns W/Kcl 20meq IV 42 mls/hr DIRECT MONIQUE Administration Sodium Chloride 100 mls @ 999 mls/hr 03/05/21 14:30 Nacl 0.9% IV AMY PRN Hypotension Insulin Human Lispro 0 unit 03/04/21 06:00 03/06/21 05:50 Insulin Lispro 100 Unit/Ml SUB-Q Not Given Q6HR [facility] Protocol Lactulose 20 gm 03/04/21 10:00 03/05/21 09:05 Lactulose 20 Gm/30 Ml Oral Liqd PO Not Given QDAY [facility] Latanoprost 1 drops 03/04/21 22:00 03/05/21 22:00 Latanoprost 0.005% Ophth Soln 2.5 Ml OU 1 drops QHS MONIQUE Administration Levetiracetam 750 mg 03/04/21 10:00 03/05/21 22:00 Levetiracetam 500 Mg/5 Ml Oral Liqd PO Not Given BID MONIQUE Losartan Potassium 25 mg 03/04/21 10:00 03/05/21 09:05 Losartan 25 Mg Tab PO Not Given QDAY [facility] Miscellaneous Medication 1 drop 03/04/21 06:00 Brimonidine Tartrate [Brimonidine Tartrate 0.2%] OU Q8HR [facility]IQUE Miscellaneous Medication 1 drop 03/04/21 10:00 Dorzolamide/Timolol/Pf [Dorzolamide-Timolol 2%-0.5%] OU BID MON[facility]QUE Ondansetron HCl 4 mg 03/04/21 05:13 Ondansetron 4 Mg/2 Ml Inj IV Q8H PRN Nausea And Vomiting Pantoprazole Sodium 40 mg 03/05/21 07:30 03/05/21 09:04 Pantoprazole 40 Mg Tab PO Not Given QDAC [facility]IQUE Sodium Bicarbonate 325 mg 03/04/21 05:17 Sodium Bicarbonate 325 Mg Tab FEEDTUBE PRN PRN For Clogged Feeding Tube Sodium Bicarbonate 650 mg 03/04/21 10:00 03/05/21 22:00 Sodium Bicarbonate 650 Mg Tab PO Not Given BID MONIQUE Sodium Chloride 10 ml 03/04/21 05:13 Sodium Chloride 0.9% 10 Ml Flush Syringe IV PRN PRN LINE FLUSH Nutrition/Malnutrition Assess - Dietary Evaluation Nutrition/Malnutrition Findings: Nutrition Notes Start: 03/04/21 10:02 Freq: Status: Active Protocol: Document 03/04/21 10:02 (Rec: 03/04/21 10:12 [id number]) Nutrition Notes Need for Assessment generated from: MD Order Initial or Follow up Brief Note Current Diagnosis CKD(stage I-IV),Diabetes,Heart Failure Other Pertinent Diagnosis AMS Current Diet NPO Height 5 ft 4 in Weight 68.946 kg [place] Body Weight (kg) 54.54 BMI 26.1 Weight Status Overweight Subjective/Other Information MD consult for malnutrition. Pt came in with a dislodged PEG. Pt from [place]. Pt on hold in ED. Is patient on ventilator? No Is Patient Ambulatory and/or Out of Bed No REE-([facility]-confined to bed) [phone] Calculation Used for Recommendations [facility] Additional Notes Protein: (0.8-1g/kg) 55-69g Fluid: 1 ml/kcal or per MD Nutrition Intervention Nutrition Support: Recommned TF when medically able Jevity 1.2 at 50 ml/hr Flush 75 ml q4h Kcal 1,440 Protein (gm) 67 Fluid (mL) 968 Follow-Up By: 03/06/21 Additional Comments F/u: PEG placement and TF consult
[2021-03-06] MEDS: hydrALAZINE 100 MG TAB PO SCH ×3 (08:50→20:00)
[2021-03-06] MEDS: PANTOPRAZOLE 40 MG TAB PO SCH (08:50)
[2021-03-06] MEDS: CALCIUM ACETATE 667 MG CAP PO SCH ×3 (08:51→17:53)
[2021-03-06 09:58] LABS: Calcium 10.3 mg/dL (8.4-10.2)
--- NOTE | 2021-03-06 11:18 | Consultation ---
History of Present Illness Consult date: 03/06/21 Consult reason: bradycardia History of present illness: The patient is a 60[facility] with dementia and end-stage renal disease on hemodialysis, who was brought to the emergency room for evaluation of a dislodged gastrostomy feeding tube. She was evaluated and admitted, and GI consultation is ongoing for the PEG tube dislodgment. Cardiology consultation is requested for evaluation and management of persistent bradycardia with documented heart rates in the mid 40s. There is no ECG or telemetry strips available in the patient's chart to establish the actual rhythm. She has been hemodynamically stable with elevated blood pressure readings. She has a long history of documented sinus bradycardia. As far back as 2017, she was seen in this hospital for marked sinus bradycardia at that time, at that time associated with atenolol 50 mg that was administered for her hypertension. In addition, she has a loop recorder in situ, ostensibly for monitoring of her chronic bradycardia. Ischemic cardiac work-up includes a cardiac catheterization in 2014, that reported a patent right coronary artery stent, with no significant residual coronary lesions in other segments. Most recent left ventricular systolic function assessment was earlier this year, echocardiogram reported normal ejection fraction of 50 to 55%. Past History Past Medical History: CAD, diabetes, renal failure, stroke, other (Dementia) Past Surgical History: Other (VasCath) Social history: other (Lives in [place]) Family history: no significant family history Medications and Allergies Allergies Allergy/AdvReac Type Severity Reaction Status Date / Time No Known Allergies Allergy Verified 03/04/21 11:36 Home Medications Medication Instructions Recorded Confirmed Last Taken Type Brimonidine Tartrate [Brimonidine 1 drop OU Q8HR 04/24/19 07/12/20 Unknown History Tartrate 0.2%] Sodium Bicarbonate 650 mg PO BID #14 tablet 02/29/20 07/12/20 Unknown Rx hydrALAZINE [Apresoline TAB] 100 mg PO TID #90 tab 02/29/20 07/12/20 Unknown Rx Dorzolamide/Timolol/Pf 1 drop OU BID 07/12/20 07/12/20 Unknown History [Dorzolamide-Timolol 2%-0.5%] Latanoprost 0.005% 1 drop OU QHS 07/12/20 07/12/20 Unknown History Sevelamer Carbonate [Renvela] 800 mg PO TIDWM 07/12/20 07/12/20 Unknown History Acetaminophen [Acetaminophen TAB] 650 mg PO Q4H PRN tablet 07/15/20 Unknown Rx Aspirin EC [Halfprin EC] 81 mg PO DAILY #30 tablet 07/15/20 Unknown Rx AtorvaSTATin [Lipitor] 80 mg PO QHS #30 tablet 07/15/20 Unknown Rx Calcium Acetate [Phoslo] 667 mg PO TIDWM #90 capsule 07/15/20 Unknown Rx Ferrous Sulfate [Feosol 325 MG tab] 325 mg PO DAILY #30 tablet 07/15/20 Unknown Rx Lactulose [Cephulac] 20 gm PO QDAY #30 oral.liqd 07/15/20 Unknown Rx NIFEdipine XL [Procardia Xl] 90 mg PO QDAY #30 tablet 07/15/20 Unknown Rx Aspirin 325 mg FEEDTUBE QDAY tablet 07/25/20 Unknown Rx AtorvaSTATin [Lipitor] 80 mg PO QHS tablet 07/25/20 Unknown Rx Dorzolamide/Timolol/Pf 1 drop OU BID 07/25/20 Unknown Rx [Dorzolamide-Timolol 2%-0.5%] Epoetin Gilbert-Epbx 10,000 Unit 10,000 unit IV AMY PRN vial 07/25/20 Unknown Rx [Retacrit] Lipase/Protease/Amylase [Pancreaze 1 each FEEDTUBE PRN PRN capsule 07/25/20 Unknown Rx 10,500 Unit] Losartan [Cozaar] 50 mg PO QDAY tablet 07/25/20 Unknown Rx Simple Syrup 15 ml FEEDTUBE PRN PRN oral.liqd 07/25/20 Unknown Rx Simple Syrup 30 ml FEEDTUBE PRN PRN oral.liqd 07/25/20 Unknown Rx Sodium Bicarbonate 325 mg FEEDTUBE PRN PRN tablet 07/25/20 Unknown Rx amLODIPine 10 mg FEEDTUBE DAILY tablet 07/25/20 Unknown Rx bisacodyL [Dulcolax suppos] 10 mg ME QDAY PRN supp.rect 07/25/20 Unknown Rx Ferrous Sulfate [Ferrous Sulfate 300 mg PO QDAY #30 ml 07/31/20 Unknown Rx Oral Liq 300 Mg/5 Ml] Insulin Glargine [Lantus VIAL] 20 units SUB-Q QAMDIAB #1 vial 07/31/20 Unknown Rx Losartan [Cozaar] 25 mg PO QDAY #30 tablet 07/31/20 Unknown Rx Sodium Bicarbonate 650 mg PO DAILY tablet 07/31/20 Unknown Rx levETIRAcetam [Keppra] 750 mg PO BID #60 oral.liqd 07/31/20 Unknown Rx levoFLOXacin [Levaquin TAB] 500 mg PO Q48HR 14 Days tablet 07/31/20 Unknown Rx oxyCODONE /ACETAMINOPHEN [Percocet 1 tab PO Q6H PRN tablet 07/31/20 Unknown Rx 5/325 mg] Active Meds: Active Medications Acetaminophen (Acetaminophen 325 Mg Tab) 650 mg PO Q4H PRN PRN Reason: Pain MILD(1-3)/Fever >100.5/COLVIN Albuterol (Albuterol 2.5 Mg/3 Ml Nebu) 2.5 mg IH Q4HRT PRN PRN Reason: Shortness Of Breath Albuterol/Ipratropium (Ipratropium/Albuterol Sulfate 3 Ml Ampul.Neb) 1 ampul IH Q6HRT [facility] Last Admin: 03/06/21 05:00 Dose: Not Given Documented by: Amlodipine Besylate (Amlodipine 10 Mg Tab) 10 mg FEEDTUBE DAILY [facility] Last Admin: 03/05/21 09:05 Dose: Not Given Documented by: Lipase/Protease/Amylase (Lipase 10,500/Protease 25,000/Amylase 43,750 (Units) Dr Cap) 1 each FEEDTUBE PRN PRN PRN Reason: For Clogged Feeding Tube Atorvastatin Calcium (Atorvastatin 40 Mg Tab) 80 mg PO QHS [facility] Last Admin: 03/05/21 22:00 Dose: Not Given Documented by: Bisacodyl (Bisacodyl 10 Mg Rect Supp) 10 mg ME QDAY PRN PRN Reason: Constipation Calcium Acetate (Calcium Acetate 667 Mg Cap) 667 mg PO TIDWM [facility] Last Admin: 03/06/21 08:51 Dose: Not Given Documented by: Dextrose (Dextrose 50% In Water (25gm) 50 Ml Syringe) 0 ml IV Q30MIN PRN; Protocol PRN Reason: Hypoglycemia Hydralazine HCl (Hydralazine 100 Mg Tab) 100 mg PO TID [facility] Last Admin: 03/06/21 08:50 Dose: Not Given Documented by: Hydralazine HCl (Hydralazine 20 Mg/1 Ml Inj) 10 mg IV Q6H PRN PRN Reason: Hypertension Hydromorphone HCl (Hydromorphone 1 Mg/1 Ml Inj) 0.5 mg IV Q3H PRN PRN Reason: Pain , Severe (7-10) Last Admin: 03/04/21 18:27 Dose: 0.5 mg Documented by: Potassium Chloride/Dextrose/Sod Cl (D5w/Ns W/Kcl 20meq) 20 meq in 1,000 mls @ 42 mls/hr IV DIRECT MONIQUE Last Admin: 03/04/21 19:36 Dose: 42 mls/hr Documented by: Sodium Chloride (Nacl 0.9%) 100 mls @ 999 mls/hr IV AMY PRN PRN Reason: Hypotension Insulin Human Lispro (Insulin Lispro 100 Unit/Ml) 0 unit SUB-Q Q6HR [facility]; Protocol Last Admin: 03/06/21 05:50 Dose: Not Given Documented by: Lactulose (Lactulose 20 Gm/30 Ml Oral Liqd) 20 gm PO QDAY [facility] Last Admin: 03/05/21 09:05 Dose: Not Given Documented by: Latanoprost (Latanoprost 0.005% Ophth Soln 2.5 Ml) 1 drops OU QHS [facility] Last Admin: 03/05/21 22:00 Dose: 1 drops Documented by: Levetiracetam (Levetiracetam 500 Mg/5 Ml Oral Liqd) 750 mg PO BID [facility] Last Admin: 03/05/21 22:00 Dose: Not Given Documented by: Losartan Potassium (Losartan 25 Mg Tab) 25 mg PO QDAY [facility] Last Admin: 03/05/21 09:05 Dose: Not Given Documented by: Miscellaneous Medication (Brimonidine Tartrate [Brimonidine Tartrate 0.2%]) 1 drop OU Q8HR MONIQUE Miscellaneous Medication (Dorzolamide/Timolol/Pf [Dorzolamide-Timolol 2%-0.5%]) 1 drop OU BID MONIQUE Ondansetron HCl (Ondansetron 4 Mg/2 Ml Inj) 4 mg IV Q8H PRN PRN Reason: Nausea And Vomiting Pantoprazole Sodium (Pantoprazole 40 Mg Tab) 40 mg PO QDAC [facility] Last Admin: 03/06/21 08:50 Dose: Not Given Documented by: Sodium Bicarbonate (Sodium Bicarbonate 325 Mg Tab) 325 mg FEEDTUBE PRN PRN PRN Reason: For Clogged Feeding Tube Sodium Bicarbonate (Sodium Bicarbonate 650 Mg Tab) 650 mg PO BID MONIQUE Last Admin: 03/05/21 22:00 Dose: Not Given Documented by: Sodium Chloride (Sodium Chloride 0.9% 10 Ml Flush Syringe) 10 ml IV PRN PRN PRN Reason: LINE FLUSH Review of Systems Cardiovascular: no chest pain, no orthopnea, no palpitations, no rapid/irregular heart beat, no edema, no syncope, no lightheadedness, no shortness of breath Physical Examination Vital Signs Pulse Resp BP Pulse Ox 47 L 11 L 155/40 100 03/04/21 04:03/04/21 04:03/04/21 04:03/04/21 04:19 General appearance: no acute distress, other (Patient is confused with chronic dementia) HEENT: Positive: PERRL Neck: Positive: neck supple Cardiac: Positive: Regular Rhythm, Other (Bradycardia) Lungs: Positive: Decreased Breath Sounds Neuro: Positive: Grossly Intact Abdomen: Positive: Soft Female genitourinary: deferred Skin: Positive: Clear Extremities: Absent: edema Results 03/04/21 05:07 03/06/21 04:34 Comprehensive Metabolic Panel 03/05/21 03/06/21 Range/Units 14:40 04:34 Sodium 141 143 (137-145) mmol/L Potassium 3.5 L 3.6 (3.6-5.0) mmol/L Chloride 101.0 102.7 (98-107) mmol/L Carbon Dioxide 24 26 (22-30) mmol/L BUN 42 H 43 H (7-17) mg/dL Creatinine 3.9 H 3.7 H (0.6-1.2) mg/dL Glucose 82 97 (65-100) mg/dL Calcium 10.4 H 10.3 H (8.4-10.2) mg/dL Assessment and Plan - Patient Problems (1) Bradycardia Current Visit: Yes Status: Acute Plan to address problem: Patient was admitted to the hospital for management of a dislodged gastrostomy feeding tube. Found with persistent bradycardia, I will order an EKG and remote telemetry monitoring for rhythm assessment. She has a history of chronic asymptomatic sinus bradycardia and ostensibly has an in situ loop recorder. We will avoid AV klever blocking agents, recheck the thyroid hormone levels, and further cardiac evaluation and management will depend on clinical course.
[2021-03-06] MEDS: amLODIPine 10 MG TAB FEEDTUBE SCH (11:31)
[2021-03-06] MEDS: LOSARTAN 25 MG TAB PO SCH (11:32)
[2021-03-06] MEDS: LACTULOSE 20 GM/30 ML ORAL LIQD PO SCH (11:32)
[2021-03-06] MEDS: levETIRAcetam 500 MG/5 ML ORAL LIQD PO SCH ×2 (11:32→22:00)
[2021-03-06] MEDS: SODIUM BICARBONATE 650 MG TAB PO SCH ×2 (11:32→23:00)
--- NOTE | 2021-03-06 17:40 | Progress Note ---
Assessment and Plan Assessment - End-stage renal disease on hemodialysis - Hypertension - Bradycardia, chronic - Hyperparathyroidism - Hyperphosphatemia Recommendations - Continue HD TTS - Monitor labs and volume status daily and assess need for additional dialysis session - Cardiology note reviewed - Continue home antihypertensives - Hold antihypertensives on hemodialysis days for systolics less than 160 - No indication for Epogen with HD - ESRD diet with 1.4 g/kg per day protein - Renally dose medication for creatinine clearance less than 15 cc/min - Patient is chronic dialysis patient at [facility] and is altered at baseline. Subjective Date of service: 03/06/21 Principal diagnosis: G tube dislodgement Interval history: Patient was seen for her renal issues Nursing, interdisciplinary and consult notes were reviewed Vitals, input and output, medications and labs were reviewed No complications with HD Objective - Exam Narrative Exam: General: No acute distress HEENT: Oral mucosa moist Neck: Supple, no JVD Chest: Clear to auscultation bilaterally Heart: RRR, S1 and S2, no pericardial rub Abdomen: Soft, nontender, no renal bruit Extremity: No peripheral cyanosis, edema Neurological: Altered at baseline Dermatology: No skin rash Psych: Unable to assess Musculoskeletal: No joint effusion - Vital Signs Vital signs: Vital Signs - 12hr 03/06/21 03/06/21 03/06/21 10:15 10:20 10:30 Temperature 97.2 F L Pulse Rate 57 L 49 L 58 L Respiratory 18 Rate Blood Pressure 180/72 168/62 172/58 O2 Sat by Pulse Oximetry O2 Sat by Pulse 97 Oximetry [ Bilateral] 03/06/21 03/06/21 03/06/21 10:45 11:00 11:15 Temperature Pulse Rate 49 L 58 L 54 L Respiratory Rate Blood Pressure 192/55 150/69 170/85 O2 Sat by Pulse Oximetry O2 Sat by Pulse Oximetry [ Bilateral] 03/06/21 03/06/21 03/06/21 11:25 11:30 12:34 Temperature 98.3 F Pulse Rate 52 L 55 L Respiratory 18 Rate Blood Pressure 182/97 164/70 O2 Sat by Pulse 97 100 Oximetry O2 Sat by Pulse Oximetry [ Bilateral] - Lab 03/04/21 05:07 03/06/21 04:34 Most recent lab results Calcium 10.3 mg/dL (8.4-10.2) H 03/06/21 04:34 Medications & Allergies - Medications Allergies/Adverse Reactions: Allergies No Known Allergies Allergy (Verified 03/04/21 11:36) Home Medications: Home Medications Medication Instructions Recorded Confirmed Last Taken Type Brimonidine Tartrate [Brimonidine 1 drop OU Q8HR 04/24/19 07/12/20 Unknown History Tartrate 0.2%] Sodium Bicarbonate 650 mg PO BID #14 tablet 02/29/20 07/12/20 Unknown Rx hydrALAZINE [Apresoline TAB] 100 mg PO TID #90 tab 02/29/20 07/12/20 Unknown Rx Dorzolamide/Timolol/Pf 1 drop OU BID 07/12/20 07/12/20 Unknown History [Dorzolamide-Timolol 2%-0.5%] Latanoprost 0.005% 1 drop OU QHS 07/12/20 07/12/20 Unknown History Sevelamer Carbonate [Renvela] 800 mg PO TIDWM 07/12/20 07/12/20 Unknown History Acetaminophen [Acetaminophen TAB] 650 mg PO Q4H PRN tablet 07/15/20 Unknown Rx Aspirin EC [Halfprin EC] 81 mg PO DAILY #30 tablet 07/15/20 Unknown Rx AtorvaSTATin [Lipitor] 80 mg PO QHS #30 tablet 07/15/20 Unknown Rx Calcium Acetate [Phoslo] 667 mg PO TIDWM #90 capsule 07/15/20 Unknown Rx Ferrous Sulfate [Feosol 325 MG tab] 325 mg PO DAILY #30 tablet 07/15/20 Unknown Rx Lactulose [Cephulac] 20 gm PO QDAY #30 oral.liqd 07/15/20 Unknown Rx NIFEdipine XL [Procardia Xl] 90 mg PO QDAY #30 tablet 07/15/20 Unknown Rx Aspirin 325 mg FEEDTUBE QDAY tablet 07/25/20 Unknown Rx AtorvaSTATin [Lipitor] 80 mg PO QHS tablet 07/25/20 Unknown Rx Dorzolamide/Timolol/Pf 1 drop OU BID 07/25/20 Unknown Rx [Dorzolamide-Timolol 2%-0.5%] Epoetin Gilbert-Epbx 10,000 Unit 10,000 unit IV MAY PRN vial 07/25/20 Unknown Rx [Retacrit] Lipase/Protease/Amylase [Pancreaze 1 each FEEDTUBE PRN PRN capsule 07/25/20 Unknown Rx 10,500 Unit] Losartan [Cozaar] 50 mg PO QDAY tablet 07/25/20 Unknown Rx Simple Syrup 15 ml FEEDTUBE PRN PRN oral.liqd 07/25/20 Unknown Rx Simple Syrup 30 ml FEEDTUBE PRN PRN oral.liqd 07/25/20 Unknown Rx Sodium Bicarbonate 325 mg FEEDTUBE PRN PRN tablet 07/25/20 Unknown Rx amLODIPine 10 mg FEEDTUBE DAILY tablet 07/25/20 Unknown Rx bisacodyL [Dulcolax suppos] 10 mg HI QDAY PRN supp.rect 07/25/20 Unknown Rx Ferrous Sulfate [Ferrous Sulfate 300 mg PO QDAY #30 ml 07/31/20 Unknown Rx Oral Liq 300 Mg/5 Ml] Insulin Glargine [Lantus VIAL] 20 units SUB-Q QAMDIAB #1 vial 07/31/20 Unknown Rx Losartan [Cozaar] 25 mg PO QDAY #30 tablet 07/31/20 Unknown Rx Sodium Bicarbonate 650 mg PO DAILY tablet 07/31/20 Unknown Rx levETIRAcetam [Keppra] 750 mg PO BID #60 oral.liqd 07/31/20 Unknown Rx levoFLOXacin [Levaquin TAB] 500 mg PO Q48HR 14 Days tablet 07/31/20 Unknown Rx oxyCODONE /ACETAMINOPHEN [Percocet 1 tab PO Q6H PRN tablet 07/31/20 Unknown Rx 5/325 mg] Active Medications: Generic Name Dose Route Start Last Admin Trade Name Freq PRN Reason Stop Dose Admin Acetaminophen 650 mg 03/04/21 05:13 Acetaminophen 325 Mg Tab PO Q4H PRN Pain MILD(1-3)/Fever >100.5/COLVIN Albuterol 2.5 mg 03/04/21 05:13 Albuterol 2.5 Mg/3 Ml Nebu IH Q4HRT PRN Shortness Of Breath Albuterol/Ipratropium 1 ampul 03/04/21 08:00 03/06/21 14:10 Ipratropium/Albuterol Sulfate 3 Ml Ampul.Neb IH Not Given Q6HRT MONIQUE Amlodipine Besylate 10 mg 03/04/21 10:00 03/06/21 11:31 Amlodipine 10 Mg Tab FEEDTUBE Not Given DAILY MONIQUE Lipase/Protease/Amylase 1 each 03/04/21 05:17 Lipase 10,500/Protease 25,000/Amylase 43,750 (Units) Dr Hope FEEDTUBE PRN PRN For Clogged Feeding Tube Atorvastatin Calcium 80 mg 03/04/21 22:00 03/05/21 22:00 Atorvastatin 40 Mg Tab PO Not Given QHS MONIQUE Bisacodyl 10 mg 03/04/21 05:17 Bisacodyl 10 Mg Rect Supp HI QDAY PRN Constipation Calcium Acetate 667 mg 03/04/21 08:00 03/06/21 08:51 Calcium Acetate 667 Mg Cap PO Not Given TIDWM MONIQUE Dextrose 0 ml 03/04/21 05:13 Dextrose 50% In Water (25gm) 50 Ml Syringe IV Q30MIN PRN Hypoglycemia Protocol Hydralazine HCl 100 mg 03/04/21 08:00 03/06/21 08:50 Hydralazine 100 Mg Tab PO Not Given TID MONIQUE Hydralazine HCl 10 mg 03/06/21 00:06 Hydralazine 20 Mg/1 Ml Inj IV Q6H PRN Hypertension Hydromorphone HCl 0.5 mg 03/04/21 05:13 03/04/21 18:27 Hydromorphone 1 Mg/1 Ml Inj IV 0.5 mg Q3H PRN Administration Pain , Severe (7-10) Potassium Chloride/Dextrose/Sod Cl 20 meq in 1,000 mls @ 42 mls/hr 03/04/21 13:00 03/04/21 19:36 D5w/Ns W/Kcl 20meq IV 42 mls/hr DIRECT MONIQUE Administration Sodium Chloride 100 mls @ 999 mls/hr 03/05/21 14:30 Nacl 0.9% IV AMY PRN Hypotension Insulin Human Lispro 0 unit 03/04/21 06:00 03/06/21 05:50 Insulin Lispro 100 Unit/Ml SUB-Q Not Given Q6HR ON LICENSE OF [facility] Protocol Lactulose 20 gm 03/04/21 10:00 03/06/21 11:32 Lactulose 20 Gm/30 Ml Oral Liqd PO Not Given QDAY MONIQUE Latanoprost 1 drops 03/04/21 22:00 03/05/21 22:00 Latanoprost 0.005% Ophth Soln 2.5 Ml OU 1 drops QHS MONIQUE Administration Levetiracetam 750 mg 03/04/21 10:00 03/06/21 11:32 Levetiracetam 500 Mg/5 Ml Oral Liqd PO Not Given BID MONIQUE Losartan Potassium 25 mg 03/04/21 10:00 03/06/21 11:32 Losartan 25 Mg Tab PO Not Given QDAY MONIQUE Miscellaneous Medication 1 drop 03/04/21 06:00 Brimonidine Tartrate [Brimonidine Tartrate 0.2%] OU Q8HR MONIQUE Miscellaneous Medication 1 drop 03/04/21 10:00 Dorzolamide/Timolol/Pf [Dorzolamide-Timolol 2%-0.5%] OU BID MONIQUE Ondansetron HCl 4 mg 03/04/21 05:13 Ondansetron 4 Mg/2 Ml Inj IV Q8H PRN Nausea And Vomiting Pantoprazole Sodium 40 mg 03/05/21 07:30 03/06/21 08:50 Pantoprazole 40 Mg Tab PO Not Given QDAC MONIQUE Sodium Bicarbonate 325 mg 03/04/21 05:17 Sodium Bicarbonate 325 Mg Tab FEEDTUBE PRN PRN For Clogged Feeding Tube Sodium Bicarbonate 650 mg 03/04/21 10:00 03/06/21 11:32 Sodium Bicarbonate 650 Mg Tab PO Not Given BID MONIQUE Sodium Chloride 10 ml 03/04/21 05:13 Sodium Chloride 0.9% 10 Ml Flush Syringe IV PRN PRN LINE FLUSH
[2021-03-06] MEDS ORDERED: IPRATROPIUM/ALBUTEROL SULFATE 3 ML AMPUL.NEB IH SCH (21:45)
[2021-03-06] MEDS: LATANOPROST 0.005% OPHTH SOLN 2.5 ML OU SCH (23:00)
[2021-03-07] MEDS: INSULIN LISPRO 100 UNIT/ML SUB-Q SCH ×4 (06:00→18:34)
--- NOTE | 2021-03-07 08:47 | Electrocardiograph Report ---
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
[2021-03-07] MEDS: hydrALAZINE 100 MG TAB PO SCH ×2 (10:12→18:34)
[2021-03-07] MEDS: amLODIPine 10 MG TAB FEEDTUBE SCH (10:12)
[2021-03-07] MEDS: LOSARTAN 25 MG TAB PO SCH (10:12)
[2021-03-07] MEDS: levETIRAcetam 500 MG/5 ML ORAL LIQD PO SCH (10:16)
[2021-03-07] MEDS: LACTULOSE 20 GM/30 ML ORAL LIQD PO SCH (10:16)
[2021-03-07] MEDS: SODIUM BICARBONATE 650 MG TAB PO SCH (10:17)
[2021-03-07] MEDS: CALCIUM ACETATE 667 MG CAP PO SCH ×2 (10:17→18:34)
[2021-03-07] MEDS: PANTOPRAZOLE 40 MG TAB PO SCH (10:19)
--- NOTE | 2021-03-07 11:45 | Progress Note ---
Assessment and Plan Assessment and plan: This is a 60-year-old woman with history of stroke with end-stage renal disease on hemodialysis, history of stroke with residual deficits who was sent from the correction following dislodgment of her G-tube. A/P -- Gastrojejunostomy tube dislodgement tolerating Po diet, no plan to place a new G-tube --Bradycardia, ordered today for: Consulted cardiology --ESRD On HD Dialysis per renal recommendation -- Diabetes mellitus Accu-Chek every every 6 hours with insulin coverage. Consistent carb diet -- History of CVA (cerebrovascular accident) Stable. We will continue the home medication. Outpatient follow-up with neurology -- Hypertension We will continue the home medication. Adjust as needed --Vascular dementia: Supportive care -- DVT prophylaxis SCD for DVT prophylaxis. Pepcid 20 mg IV every 12 hours for GI prophylaxis. Patient is a full code daily clinical course; 03/05/21: bradycardic on tele, HD pending. ordered 2d echo and cardiology consult. Patient tolerating oral diet 03/06/2021 -Patient is pending cardiology evaluation for discharge. -No need for replacement of PEG. -Patient has outpatient dialysis at [place]. 03/07 -Patient will be discharged once cleared by cardiology. History Interval history: Patient was seen and evaluated this morning Patient was confused and demented Hospitalist Physical - Physical exam Narrative exam: Not in cardiopulmonary distress. The patient appeared well nourished and normally developed. Vital signs as documented. Head exam is unremarkable. No scleral icterus . Neck is without jugular venous distension, thyromegaly, or carotid bruits. Lungs are clear to auscultation. Cardiac exam reveals regular rate and Rhythm. Abdominal exam reveals normal bowel sounds, nontender, no organomegaly. Extremities are nonedematous and both femoral and pedal pulses are normal. 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 - Constitutional Vitals: Temp Pulse Resp BP Pulse Ox 97.8 F 51 L 20 148/45 99 03/07/21 05:43 03/07/21 05:43 03/07/21 05:43 03/07/21 05:43 03/07/21 05:43 General appearance: Present: no acute distress, well-nourished Results - Labs CBC & Chem 7: 03/04/21 05:07 03/06/21 04:34 Labs: Laboratory Last Values WBC 5.6 K/mm3 (4.5-11.0) 03/04/21 05:07 RBC 3.70 M/mm3 (3.65-5.03) 03/04/21 05:07 Hgb 10.1 gm/dl (10.1-14.3) 03/04/21 05:07 Hct 30.8 % (30.3-42.9) 03/04/21 05:07 MCV 83 fl (79-97) 03/04/21 05:07 MCH 27 pg (28-32) L 03/04/21 05:07 MCHC 33 % (30-34) 03/04/21 05:07 RDW 16.9 % (13.2-15.2) H 03/04/21 05:07 Plt Count 306 K/mm3 (140-440) 03/04/21 05:07 Lymph % (Auto) 14.3 % (13.4-35.0) 03/04/21 05:07 [place] % (Auto) 6.6 % (0.0-7.3) 03/04/21 05:07 Eos % (Auto) 3.4 % (0.0-4.3) 03/04/21 05:07 Baso % (Auto) 0.6 % (0.0-1.8) 03/04/21 05:07 Lymph # (Auto) 0.8 K/mm3 (1.2-5.4) L 03/04/21 05:07 [place] # (Auto) 0.4 K/mm3 (0.0-0.8) 03/04/21 05:07 Eos # (Auto) 0.2 K/mm3 (0.0-0.4) 03/04/21 05:07 Baso # (Auto) 0.0 K/mm3 (0.0-0.1) 03/04/21 05:07 Seg Neutrophils % 75.1 % (40.0-70.0) H 03/04/21 05:07 Seg Neutrophils # 4.2 K/mm3 (1.8-7.7) 03/04/21 05:07 PT 13.6 Sec. (12.2-14.9) 03/04/21 05:07 INR 0.99 (0.87-1.13) 03/04/21 05:07 APTT 30.6 Sec. (24.2-36.6) 03/04/21 05:07 Sodium 143 mmol/L (137-145) 03/06/21 04:34 Potassium 3.6 mmol/L (3.6-5.0) 03/06/21 04:34 Chloride 102.7 mmol/L (98-107) 03/06/21 04:34 Carbon Dioxide 26 mmol/L (22-30) 03/06/21 04:34 Anion Gap 18 mmol/L 03/06/21 04:34 BUN 43 mg/dL (7-17) H 03/06/21 04:34 Creatinine 3.7 mg/dL (0.6-1.2) H 03/06/21 04:34 Estimated GFR 15 ml/min 03/06/21 04:34 BUN/Creatinine Ratio 12 % 03/06/21 04:34 Glucose 97 mg/dL (65-100) 03/06/21 04:34 POC Glucose 84 mg/dL (70-105) 03/07/21 07:41 Calcium 10.3 mg/dL (8.4-10.2) H 03/06/21 04:34 TSH 0.143 mlU/mL (0.270-4.200) L 03/06/21 04:34 Free T4 1.25 ng/dL (0.76-1.46) 03/06/21 04:34 Nasal Screen MRSA (PCR) Negative (Negative) 03/06/21 05:00 Coronavirus (PCR) Negative (Negative) 03/05/21 08:30 Hepatitis A IgM Ab Non-reactive (NonReactive) 03/06/21 04:34 Hep Bs Antigen Nonreactive (Negative) 03/06/21 04:34 Hep B Core IgM Ab Non-reactive (NonReactive) 03/06/21 04:34 Hepatitis C Antibody Non-reactive (NonReactive) 03/06/21 04:34 Cantu/IV: Voiding Method Incontinent Active Medications - Current Medications Current Medications: Generic Name Dose Route Start Last Admin Trade Name Freq PRN Reason Stop Dose Admin Acetaminophen 650 mg 03/04/21 05:13 Acetaminophen 325 Mg Tab PO Q4H PRN Pain MILD(1-3)/Fever >100.5/COLVIN Albuterol 2.5 mg 03/04/21 05:13 Albuterol 2.5 Mg/3 Ml Nebu IH Q4HRT PRN Shortness Of Breath Amlodipine Besylate 10 mg 03/04/21 10:00 03/07/21 10:12 Amlodipine 10 Mg Tab FEEDTUBE Not Given DAILY MONIQUE Lipase/Protease/Amylase 1 each 03/04/21 05:17 Lipase 10,500/Protease 25,000/Amylase 43,750 (Units) Dr Hope FEEDTUBE PRN PRN For Clogged Feeding Tube Atorvastatin Calcium 80 mg 03/04/21 22:00 03/06/21 23:00 Atorvastatin 40 Mg Tab PO 80 mg QHS MONIQUE Administration Bisacodyl 10 mg 03/04/21 05:17 Bisacodyl 10 Mg Rect Supp [place] QDAY PRN Constipation Calcium Acetate 667 mg 03/04/21 08:00 03/07/21 10:17 Calcium Acetate 667 Mg Cap PO 667 mg TIDWM MONIQUE Administration Dextrose 0 ml 03/04/21 05:13 Dextrose 50% In Water (25gm) 50 Ml Syringe IV Q30MIN PRN Hypoglycemia Protocol Hydralazine HCl 100 mg 03/04/21 08:00 03/07/21 10:12 Hydralazine 100 Mg Tab PO Not Given TID MONIQUE Hydralazine HCl 10 mg 03/06/21 00:06 Hydralazine 20 Mg/1 Ml Inj IV Q6H PRN Hypertension Hydromorphone HCl 0.5 mg 03/04/21 05:13 03/04/21 18:27 Hydromorphone 1 Mg/1 Ml Inj IV 0.5 mg Q3H PRN Administration Pain , Severe (7-10) Potassium Chloride/Dextrose/Sod Cl 20 meq in 1,000 mls @ 42 mls/hr 03/04/21 13:00 03/04/21 19:36 D5w/Ns W/Kcl 20meq IV 42 mls/hr DIRECT MONIQUE Administration Sodium Chloride 100 mls @ 999 mls/hr 03/05/21 14:30 Nacl 0.9% IV AMY PRN Hypotension Insulin Human Lispro 0 unit 03/04/21 06:00 03/07/21 06:00 Insulin Lispro 100 Unit/Ml SUB-Q Not Given Q6HR [facility] Protocol Lactulose 20 gm 03/04/21 10:00 03/07/21 10:16 Lactulose 20 Gm/30 Ml Oral Liqd PO 20 gm QDAY MONIQUE Administration Latanoprost 1 drops 03/04/21 22:00 03/06/21 23:00 Latanoprost 0.005% Ophth Soln 2.5 Ml OU 1 drops QHS MONIQUE Administration Levetiracetam 750 mg 03/04/21 10:00 03/07/21 10:16 Levetiracetam 500 Mg/5 Ml Oral Liqd PO 750 mg BID MONIQUE Administration Losartan Potassium 25 mg 03/04/21 10:00 03/07/21 10:12 Losartan 25 Mg Tab PO Not Given QDAY MONIQUE Miscellaneous Medication 1 drop 03/04/21 06:00 Brimonidine Tartrate [Brimonidine Tartrate 0.2%] OU Q8HR MONIQUE Miscellaneous Medication 1 drop 03/04/21 10:00 Dorzolamide/Timolol/Pf [Dorzolamide-Timolol 2%-0.5%] OU BID MONIQUE Ondansetron HCl 4 mg 03/04/21 05:13 Ondansetron 4 Mg/2 Ml Inj IV Q8H PRN Nausea And Vomiting Pantoprazole Sodium 40 mg 03/05/21 07:30 03/07/21 10:19 Pantoprazole 40 Mg Tab PO 40 mg QDAC MONIQUE Administration Sodium Bicarbonate 325 mg 03/04/21 05:17 Sodium Bicarbonate 325 Mg Tab FEEDTUBE PRN PRN For Clogged Feeding Tube Sodium Bicarbonate 650 mg 03/04/21 10:00 03/07/21 10:17 Sodium Bicarbonate 650 Mg Tab PO 650 mg BID MONIQUE Administration Sodium Chloride 10 ml 03/04/21 05:13 Sodium Chloride 0.9% 10 Ml Flush Syringe IV PRN PRN LINE FLUSH Nutrition/Malnutrition Assess - Dietary Evaluation Nutrition/Malnutrition Findings: Nutrition Notes Start: 03/04/21 10:02 Freq: Status: Active Protocol: Document 03/07/21 09:13 GB (Rec: 03/07/21 09:24 GB [id number]) Nutrition Notes Initial or Follow up Reassessment Current Diagnosis CKD(stage I-IV),Diabetes,Heart Failure Other Pertinent Diagnosis AMS Current Diet Pureed w/nepro BID Labs/Tests 03/06: BUN 43, Creatinine 3.7, Ca 10.3 Pertinent Medications CaAcetate, D5 as directed Height 5 ft 4 in Weight 65 kg [place] Body Weight (kg) 54.54 BMI 24.5 Weight change and time frame Admit wt 68.946 kg Current 65 kg Change of -3.9kg for -5.6% significance. Weight Status Appropriate Subjective/Other Information Per discussion with RN: PEG dislodged, not to be replaced r/t BALLAST INSPECTOR noted no concerns with swallow with puree texture, only pt shows disinterest in eating. Pt needs assistance with all meals/snacks/ supplements as she is blind. Receives Dialysis TTS. Percent of energy/protein needs met: PO intake of meals 50% or greater TID daily and PO intake of supplements 50% or greater BID daily meets 100% estimated energy needs. Burn Absent Trauma Absent GI Symptoms None Food Allergy No Usual Diet at Home Was receiving TF via PEG. Current % PO Other Minimum of two criteria No #1 Nutrition Diagnosis Other: (Specify in comment below) Comments: Needs assistance with meals/ snacks/supplements r/t blindness Etiology complications with self care/ ADLs As Evidenced by Signs and Symptoms Blindness, need for assistance with meals Is patient on ventilator? No Is Patient Ambulatory and/or Out of Bed No REE-([facility]-confined to bed) 1439.172 Kcal/Kg value to use for calculation 25 Approximate Energy Requirements Using 1625 kcal/Kg Calculation Used for Recommendations Kcal/kg Additional Notes Protein: 1-1.2 g/kg @ 65k -78g fluids: 1 ml/kcal or per MD Nutrition Intervention Change Diet Order: Start Puree diet per BALLAST INSPECTOR recommendations Nutrition Support: n/a Add Supplement/Snack (indicate name/kcal Nepro BID /protein ) Provides kCal: 850 Provides Protein (gm) 38 Goal #1 PO intake of meals to be 50% or greater TID daily for LOS Goal #2 PO intake of nutritional supplement beverage to be 50% or greater BID daily for LOS Goal #3 Weight to maintain within +/-3 % current weight for LOS Follow-Up By: 03/12/21 Additional Comments Needs assistance/encouragement with meals.
--- NOTE | 2021-03-07 13:17 | Progress Note ---
Assessment and Plan - Patient Problems (1) Bradycardia Current Visit: Yes Status: Acute Plan to address problem: Patient was admitted to the hospital for management of a dislodged gastrostomy feeding tube. Found with persistent bradycardia, which is asymptomatic, and chronic, described on multiple prior hospital admissions. Thyroid hormone levels show a TSH of 0.14, which is low and does not indicate a hypothyroid state. She has an in situ loop recorder. We will avoid AV klever blocking agents, and further cardiac evaluation and management will depend on clinical course. Subjective Date of service: 03/07/21 Principal diagnosis: G tube dislodgement Interval history: Patient is comfortable, no acute distress. 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 Objective Vital Signs Temp Pulse Resp BP Pulse Ox 03/07/21 11:40 98.1 F 48 L 18 139/42 94 03/07/21 05:43 97.8 F 51 L 20 148/45 99 03/07/21 00:12 98.3 F 63 20 158/137 100 03/06/21 22:00 99 03/06/21 16:56 98.6 F 59 L 18 184/47 98 - Physical Examination General: No Apparent Distress, Cachectic HEENT: Positive: PERRL Neck: Positive: neck supple Cardiac: Positive: Regular Rhythm Lungs: Positive: Decreased Breath Sounds Neuro: Positive: Grossly Intact Abdomen: Positive: Soft Skin: Positive: Clear Extremities: Absent: edema
--- NOTE | 2021-03-07 13:25 | Discharge Summary ---
Providers - Providers Date of Admission: 03/05/21 15:41 Date of discharge: 03/07/21 Attending physician: SHRUTI PALMA MD 03/04/21 05:15 Consult to Dietitian/Nutrition [CONS] Routine Physician Instructions: Reason For Exam: Reason for Consult: Malnutrition 03/04/21 05:17 Consult to Physician [CONS] Stat Comment: Dr. Martin spoke with Dr. Edge @ [phone] Consulting Provider: JOHAN EDGE Physician Instructions: Reason For Exam: G-TUBE PLACEMENT 03/04/21 12:47 Speech Therapy Evaluation and Treat [CONS] Routine Reason For Exam: Eval for new PEG (patient clinically improved) Speech Therapy Evaluation and Treat [CONS] Routine Reason For Exam: aspiration 03/05/21 10:47 Consult to Physician [CONS] Routine Comment: Consulting Provider: DIAN PRETTY Physician Instructions: Reason For Exam: bradycardia Primary care physician: MAYELA CASON Hospitalization Reason for admission: Dislodged PEG tube, bradycardia Condition: Stable Hospital course: 60 years old female, half-way resident with history of congestive heart failure, diabetes and altered mental statuus was brought to the emergency room because patient G-tube came out last night. No other complaint at this moment. Patient is demented. Apparently no chest pain no shortness of breath. Subsequently Case was discussed with GI Dr. Edge. We will see the patient in consultation and replace the G-tube in the morning. All labs are pending Med rec is done. Advance discharge planning is initiated Hospital course -- Gastrojejunostomy tube dislodgement tolerating Po diet, no plan to place a new G-tube --Bradycardia, ordered today for: Consulted cardiology --ESRD On HD Dialysis per renal recommendation -- Diabetes mellitus Accu-Chek every every 6 hours with insulin coverage. Consistent carb diet -- History of CVA (cerebrovascular accident) Stable. We will continue the home medication. Outpatient follow-up with neurology -- Hypertension We will continue the home medication. Adjust as needed --Vascular dementia: Supportive care -- DVT prophylaxis SCD for DVT prophylaxis. Pepcid 20 mg IV every 12 hours for GI prophylaxis. Patient is a full code daily clinical course; 03/05/21: bradycardic on tele, HD pending. ordered 2d echo and cardiology consult. Patient tolerating oral diet 03/06/2021 -Patient is pending cardiology evaluation for discharge. -No need for replacement of PEG. -Patient has outpatient dialysis at [place]. 03/07 -Patient was seen by GI and and recommend no replacement of the PEG tube. Patient was evaluated by speech therapy and patient is on pured thin liquid diet. Patient was evaluated by cardiology and said patient has chronic bradycardia, with loop recorder. Recommend no AV klever blocking agents. Patient discharged back to SNF. Outpatient dialysis arranged. Disposition: 03 NURSING HOME FACILITY Final Discharge Diagnosis (Prints w/discharge instructions): PEG tube malfunction. Bradycardia. History of CVA Time spent for discharge: 35 minutes - Discharge Diagnoses (1) Bradycardia Status: Acute (2) Malfunction of percutaneous endoscopic gastrostomy (PEG) tube Status: Acute Core Measure Documentation - Palliative Care Palliative Care/ Comfort Measures: Not Applicable - Core Measures Any of the following diagnoses?: none Exam - Physical Exam Narrative exam: Not in cardiopulmonary distress. The patient appeared well nourished and normally developed. Vital signs as documented. Head exam is unremarkable. No scleral icterus . Neck is without jugular venous distension, thyromegaly, or carotid bruits. Lungs are clear to auscultation. Cardiac exam reveals regular rate and Rhythm. Bradycardia Abdominal exam reveals normal bowel sounds, nontender, no organomegaly. Extremities are nonedematous and both femoral and pedal pulses are normal. 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 - Constitutional Vitals: Temp Pulse Resp BP Pulse Ox 98.1 F 48 L 18 139/42 94 03/07/21 11:40 03/07/21 11:40 03/07/21 11:40 03/07/21 11:40 03/07/21 11:40 Plan Activity: advance as tolerated Weight Bearing Status: Weight Bear as Tolerated Diet: low salt, renal Follow up with: MAEYLA CASON MD [Primary Care Provider] - 7 Days DIAN PRETTY MD [Staff Physician] - 14 Days
[2021-03-07] MEDS: IPRATROPIUM/ALBUTEROL SULFATE 3 ML AMPUL.NEB IH SCH (14:09)
--- NOTE | 2021-03-07 15:09 | Progress Note ---
Assessment and Plan Assessment - End-stage renal disease on hemodialysis - Hypertension - Bradycardia, chronic - Hyperparathyroidism - Hyperphosphatemia Recommendations - Continue HD TTS - Monitor labs and volume status daily and assess need for additional dialysis session - Cardiology note reviewed - Continue home antihypertensives - Hold antihypertensives on hemodialysis days for systolics less than 160 - No indication for Epogen with HD - ESRD diet with 1.4 g/kg per day protein - Renally dose medication for creatinine clearance less than 15 cc/min - Patient is chronic dialysis patient at [facility], [place] Date of service: 03/07/21 Principal diagnosis: G tube dislodgement Interval history: Patient was seen for her renal issues Nursing, interdisciplinary and consult notes were reviewed Vitals, input and output, medications and labs were reviewed Alert and communicative today Objective - Exam Narrative Exam: General: No acute distress HEENT: Oral mucosa moist Neck: Supple, no JVD Chest: Clear to auscultation bilaterally Heart: RRR, S1 and S2, no pericardial rub Abdomen: Soft, nontender, no renal bruit Extremity: No peripheral cyanosis, edema Neurological: Alert Dermatology: No skin rash Psych: Calm, cooperative Musculoskeletal: No joint effusion - Vital Signs Vital signs: Vital Signs - 12hr 03/07/21 03/07/21 05:43 11:40 Temperature 97.8 F 98.1 F Pulse Rate 51 L 48 L Respiratory 20 18 Rate Blood Pressure 148/45 139/42 O2 Sat by Pulse 99 94 Oximetry - Lab 03/04/21 05:07 03/06/21 04:34 Most recent lab results Calcium 10.3 mg/dL (8.4-10.2) H 03/06/21 04:34 Medications & Allergies - Medications Allergies/Adverse Reactions: Allergies No Known Allergies Allergy (Verified 03/04/21 11:36) Home Medications: Home Medications Medication Instructions Recorded Confirmed Last Taken Type Brimonidine Tartrate [Brimonidine 1 drop OU Q8HR 04/24/19 07/12/20 Unknown History Tartrate 0.2%] Sodium Bicarbonate 650 mg PO BID #14 tablet 02/29/20 07/12/20 Unknown Rx hydrALAZINE [Apresoline TAB] 100 mg PO TID #90 tab 02/29/20 07/12/20 Unknown Rx Dorzolamide/Timolol/Pf 1 drop OU BID 07/12/20 07/12/20 Unknown History [Dorzolamide-Timolol 2%-0.5%] Latanoprost 0.005% 1 drop OU QHS 07/12/20 07/12/20 Unknown History Sevelamer Carbonate [Renvela] 800 mg PO TIDWM 07/12/20 07/12/20 Unknown History Acetaminophen [Acetaminophen TAB] 650 mg PO Q4H PRN tablet 07/15/20 Unknown Rx Aspirin EC [Halfprin EC] 81 mg PO DAILY #30 tablet 07/15/20 Unknown Rx AtorvaSTATin [Lipitor] 80 mg PO QHS #30 tablet 07/15/20 Unknown Rx Calcium Acetate [Phoslo] 667 mg PO TIDWM #90 capsule 07/15/20 Unknown Rx Ferrous Sulfate [Feosol 325 MG tab] 325 mg PO DAILY #30 tablet 07/15/20 Unknown Rx Lactulose [Cephulac] 20 gm PO QDAY #30 oral.liqd 07/15/20 Unknown Rx NIFEdipine XL [Procardia Xl] 90 mg PO QDAY #30 tablet 07/15/20 Unknown Rx AtorvaSTATin [Lipitor] 80 mg PO QHS tablet 07/25/20 Unknown Rx Dorzolamide/Timolol/Pf 1 drop OU BID 07/25/20 Unknown Rx [Dorzolamide-Timolol 2%-0.5%] Epoetin Gilbert-Epbx 10,000 Unit 10,000 unit IV AMY PRN vial 07/25/20 Unknown Rx [Retacrit] Lipase/Protease/Amylase [Pancreaze 1 each FEEDTUBE PRN PRN capsule 07/25/20 Unknown Rx 10,500 Unit] Losartan [Cozaar] 50 mg PO QDAY tablet 07/25/20 Unknown Rx Simple Syrup 15 ml FEEDTUBE PRN PRN oral.liqd 07/25/20 Unknown Rx Simple Syrup 30 ml FEEDTUBE PRN PRN oral.liqd 07/25/20 Unknown Rx Sodium Bicarbonate 325 mg FEEDTUBE PRN PRN tablet 07/25/20 Unknown Rx amLODIPine 10 mg FEEDTUBE DAILY tablet 07/25/20 Unknown Rx bisacodyL [Dulcolax suppos] 10 mg MA QDAY PRN supp.rect 07/25/20 Unknown Rx Ferrous Sulfate [Ferrous Sulfate 300 mg PO QDAY #30 ml 07/31/20 Unknown Rx Oral Liq 300 Mg/5 Ml] Insulin Glargine [Lantus VIAL] 20 units SUB-Q QAMDIAB #1 vial 07/31/20 Unknown Rx Losartan [Cozaar] 25 mg PO QDAY #30 tablet 07/31/20 Unknown Rx Sodium Bicarbonate 650 mg PO DAILY tablet 07/31/20 Unknown Rx levETIRAcetam [Keppra] 750 mg PO BID #60 oral.liqd 07/31/20 Unknown Rx oxyCODONE /ACETAMINOPHEN [Percocet 1 tab PO Q6H PRN tablet 07/31/20 Unknown Rx 5/325 mg] Active Medications: Generic Name Dose Route Start Last Admin Trade Name Freq PRN Reason Stop Dose Admin Acetaminophen 650 mg 03/04/21 05:13 Acetaminophen 325 Mg Tab PO Q4H PRN Pain MILD(1-3)/Fever >100.5/COLVIN Albuterol 2.5 mg 03/04/21 05:13 Albuterol 2.5 Mg/3 Ml Nebu IH Q4HRT PRN Shortness Of Breath Amlodipine Besylate 10 mg 03/04/21 10:00 03/07/21 10:12 Amlodipine 10 Mg Tab FEEDTUBE Not Given DAILY MONIQUE Lipase/Protease/Amylase 1 each 03/04/21 05:17 Lipase 10,500/Protease 25,000/Amylase 43,750 (Units) Dr Hope FEEDTUBE PRN PRN For Clogged Feeding Tube Atorvastatin Calcium 80 mg 03/04/21 22:00 03/06/21 23:00 Atorvastatin 40 Mg Tab PO 80 mg QHS MONIQUE Administration Bisacodyl 10 mg 03/04/21 05:17 Bisacodyl 10 Mg Rect Supp MA QDAY PRN Constipation Calcium Acetate 667 mg 03/04/21 08:00 03/07/21 10:17 Calcium Acetate 667 Mg Cap PO 667 mg TIDWM MONIQUE Administration Dextrose 0 ml 03/04/21 05:13 Dextrose 50% In Water (25gm) 50 Ml Syringe IV Q30MIN PRN Hypoglycemia Protocol Hydralazine HCl 100 mg 03/04/21 08:00 03/07/21 10:12 Hydralazine 100 Mg Tab PO Not Given TID MONIQUE Hydralazine HCl 10 mg 03/06/21 00:06 Hydralazine 20 Mg/1 Ml Inj IV Q6H PRN Hypertension Hydromorphone HCl 0.5 mg 03/04/21 05:13 03/04/21 18:27 Hydromorphone 1 Mg/1 Ml Inj IV 0.5 mg Q3H PRN Administration Pain , Severe (7-10) Potassium Chloride/Dextrose/Sod Cl 20 meq in 1,000 mls @ 42 mls/hr 03/04/21 13:00 03/04/21 19:36 D5w/Ns W/Kcl 20meq IV 42 mls/hr DIRECT MONIQUE Administration Sodium Chloride 100 mls @ 999 mls/hr 03/05/21 14:30 Nacl 0.9% IV AMY PRN Hypotension Insulin Human Lispro 0 unit 03/04/21 06:00 03/07/21 06:00 Insulin Lispro 100 Unit/Ml SUB-Q Not Given Q6HR MONIQUE Protocol Lactulose 20 gm 03/04/21 10:00 03/07/21 10:16 Lactulose 20 Gm/30 Ml Oral Liqd PO 20 gm QDAY MONIQUE Administration Latanoprost 1 drops 03/04/21 22:00 03/06/21 23:00 Latanoprost 0.005% Ophth Soln 2.5 Ml OU 1 drops QHS MONIQUE Administration Levetiracetam 750 mg 03/04/21 10:00 03/07/21 10:16 Levetiracetam 500 Mg/5 Ml Oral Liqd PO 750 mg BID MONIQUE Administration Losartan Potassium 25 mg 03/04/21 10:00 03/07/21 10:12 Losartan 25 Mg Tab PO Not Given QDAY MONIQUE Miscellaneous Medication 1 drop 03/04/21 06:00 Brimonidine Tartrate [Brimonidine Tartrate 0.2%] OU Q8HR MONIQUE Miscellaneous Medication 1 drop 03/04/21 10:00 Dorzolamide/Timolol/Pf [Dorzolamide-Timolol 2%-0.5%] OU BID MONIQUE Ondansetron HCl 4 mg 03/04/21 05:13 Ondansetron 4 Mg/2 Ml Inj IV Q8H PRN Nausea And Vomiting Pantoprazole Sodium 40 mg 03/05/21 07:30 03/07/21 10:19 Pantoprazole 40 Mg Tab PO 40 mg QDAC MONIQUE Administration Sodium Bicarbonate 325 mg 03/04/21 05:17 Sodium Bicarbonate 325 Mg Tab FEEDTUBE PRN PRN For Clogged Feeding Tube Sodium Bicarbonate 650 mg 03/04/21 10:00 03/07/21 10:17 Sodium Bicarbonate 650 Mg Tab PO 650 mg BID MONIQUE Administration Sodium Chloride 10 ml 03/04/21 05:13 Sodium Chloride 0.9% 10 Ml Flush Syringe IV PRN PRN LINE FLUSH
[2021-03-07 17:28] VITALS: BP 164/46
== END 2021-03-07 20:21 | DRG 393 ==
LOC: SUATTDRO 02:50 → ED 02:50 → 3A 05:13 → OBSVTOIN 03-05 15:41
PROVIDERS: ADMIT Internal Medicine; ATTEND Internal Medicine
PROC: 5A1D70Z Performance of Urinary Filtration, Intermittent, Less than 6 Hours Per Day (ICD-10-PCS; principal; 2021-03-06)
DX: K94.23 Gastrostomy malfunction (principal); N18.6 End stage renal disease; I13.2 Hypertensive heart and chronic kidney disease with heart failure and with stage 5 chronic kidney disease, or end stage renal disease; F01.50 Vascular dementia, unspecified severity, without behavioral disturbance, psychotic disturbance, mood disturbance, and anxiety; I50.9 Heart failure, unspecified; E11.22 Type 2 diabetes mellitus with diabetic chronic kidney disease; Z86.73 Personal history of transient ischemic attack (TIA), and cerebral infarction without residual deficits; I25.2 Old myocardial infarction; Z87.891 Personal history of nicotine dependence; Z79.899 Other long term (current) drug therapy; Z79.4 Long term (current) use of insulin; Z99.2 Dependence on renal dialysis; R13.19 Other dysphagia; E21.3 Hyperparathyroidism, unspecified; R00.1 Bradycardia, unspecified; Y83.3 Surgical operation with formation of external stoma as the cause of abnormal reaction of the patient, or of later complication, without mention of misadventure at the time of the procedure; Z20.822 Contact with and (suspected) exposure to COVID-19
CPT/HCPCS: 36415; 80048; 80074; 82962; 84439; 84443; 85025; 85610; 85730; 87641; 93005; 94640; G0378; A9270-GY; J1170; J7030; U0003